=== PATIENT | female | born 1955 | race Two or more races ===

== ENCOUNTER 2022-07-23 13:08 | Inpatient (IN) | payer OTHER ==
[2022-07-23] MEDS ORDERED: SODIUM CHLORIDE 0.9% 1,000 ML IV STA ×2 (13:44)
[2022-07-23] MEDS ORDERED: DILTIAZEM DRIP BOLUS FROM BAG 1 MG SOLN IV ONE (13:45)
--- NOTE | 2022-07-23 13:51 | ED ---
Weakness HPI - General Chief complaint: Weakness Stated complaint: Dizziness,Tachycardia Time Seen by Provider: 07/23/22 13:33 Source: patient, RN notes reviewed Mode of arrival: wheelchair Limitations: no limitations - History of Present Illness Initial comments: 66-year-old female history of chronic A. fib diabetes hypertension chronic wound infections to the right foot who presents with family today because of palpitations feeling clammy and diaphoretic and weak. Patient denies any overt chest pain at this time no shortness of breath at this time no dysuria no cough no other symptoms. She is scheduled for amputation and near future of her right foot due to peripheral vascular disease and chronic wounds. MD Complaint: generalized weakness - Related Data Home Medications Medication Instructions Recorded Confirmed Insulin Detemir [Levemir Flexpen] 15 unit SQ BID 11/14/13 07/23/22 metFORMIN HCL [Glucophage] 1,000 mg PO BID 11/14/13 07/23/22 Acetaminophen Tab [Tylenol Tab] 1,000 mg PO Q6HR PRN 07/23/22 07/23/22 Atorvastatin [Lipitor] 40 mg PO DAILY 07/23/22 07/23/22 Cephalexin [Keflex] 500 mg PO TID 07/23/22 07/23/22 Clopidogrel [Plavix] 75 mg PO DAILY 07/23/22 07/23/22 DULoxetine HCL [Cymbalta] 30 mg PO DAILY 07/23/22 07/23/22 Gabapentin 300 mg PO TID 07/23/22 07/23/22 Losartan/Hydrochlorothiazide 1 tab PO DAILY 07/23/22 07/23/22 [Losartan-Hctz 100-12.5 mg Tab] Metoprolol Succinate [Toprol XL] 50 mg PO DAILY 07/23/22 07/23/22 Warfarin [Coumadin] 2.5 mg PO MO 07/23/22 07/23/22 Warfarin [Coumadin] 5 mg PO SUTUWETHFRSA 07/23/22 07/23/22 dilTIAZem HCL [dilTIAZem HCL 24Hr 120 mg PO DAILY 07/23/22 07/23/22 ER (Xr)] traMADol HCL 25 mg PO BID PRN 07/23/22 07/23/22 Allergies Allergy/AdvReac Type Severity Reaction Status Date / Time No Known Allergies Allergy Verified 07/23/22 14:52 Review of Systems ROS Statement: Those systems with pertinent positive or pertinent negative responses have been documented in the HPI. ROS Other: All systems not noted in ROS Statement are negative. Past Medical History Past Medical History: Atrial Fibrillation, Diabetes Mellitus, Eye Disorder, Hyperlipidemia, Hypertension Additional Past Medical History / Comment(s): CATARACT, chronic foot wounds EF 35%, PAD, History of Any Multi-Drug Resistant Organisms: None Reported Past Surgical History: Back Surgery, Section Past Anesthesia/Blood Transfusion Reactions: No Reported Reaction Past Psychological History: No Psychological Hx Reported Smoking Status: Never smoker Past Alcohol Use History: Occasional Past Drug Use History: None Reported - Past Family History Father Family Medical History: Cancer General Exam - General Exam Comments Initial Comments: This is a well developed well-nourished awake alert oriented 4 female Limitations: no limitations General appearance: alert, in no apparent distress Head exam: Present: atraumatic, normocephalic, normal inspection Eye exam: Present: normal appearance, PERRL, EOMI. Absent: scleral icterus, conjunctival injection, periorbital swelling ENT exam: Present: mucous membranes dry Neck exam: Present: normal inspection, full ROM, other (No stridor JVD or bruits). Absent: tenderness, meningismus, lymphadenopathy Respiratory exam: Present: normal lung sounds bilaterally. Absent: respiratory distress, wheezes, rales, rhonchi, stridor Cardiovascular Exam: Present: tachycardia, irregular rhythm, other (Elevated heart rate A. fib RVR ranging from the 130s to the 160s). Absent: systolic murmur, diastolic murmur, rubs, gallop, clicks GI/Abdominal exam: Present: soft, normal bowel sounds. Absent: distended, tenderness, guarding, rebound, rigid Extremities exam: Present: other (Examination right foot reveals eschar formation to the first fourth and fifth toes with no circulation noted. Consistent with dry gangrene. Localized erythema no increased localized t emperature at this time.). Absent: tenderness, pedal edema, joint swelling, calf tenderness Back exam: Present: normal inspection Neurological exam: Present: alert, oriented X3, CN II-XII intact Psychiatric exam: Present: normal affect, normal mood Skin exam: Present: warm, dry. Absent: intact, normal color, rash Course Vital Signs 07/23/22 07/23/22 07/23/22 13:19 13:35 15:14 Temperature 97.5 F L Pulse Rate 85 145 H 98 Respiratory 16 22 18 Rate Blood Pressure 127/79 130/73 O2 Sat by Pulse 96 95 96 Oximetry - Reevaluation(s) Reevaluation #1: 07/23/22 15:54 Evaluation after the IV Cardizem started reveals improvement rate patient is still in A. fib. Reevaluation #2: 07/23/22 17:18 X-ray of the foot shows no definitive evidence of osteomyelitis or gas formation. Medical Decision Making - Medical Decision Making I did discuss findings with the patient family as well as with Dr. Guerra the patient be admitted for inpatient evaluation and treatment of A. fib RVR gangrene of the right first fourth and fifth toes with localized cellulitis of the lactic acid elevated white blood cell count. Patient's INR is 4.8Was pt. sent in by a medical professional or institution (, PA, TUBE BENDING MACHINE OPERATOR, urgent care, hospital, or long term...) When possible be specific @ -No Did you speak to anyone other than the patient for history (EMS, parent, family, police, friend...)? What history was obtained from this source @ -No Did you review nursing and triage notes (agree or disagree)? Why? @ -I reviewed and agree with nursing and triage notes Were old charts reviewed (outside hosp., previous admission, EMS record, old EKG, old radiological studies, urgent care reports/EKG's, long term records)? Report findings @ -Previous admission old charts were reviewed Differential Diagnosis (chest pain, altered mental status, abdominal pain women, abdominal pain men, vaginal bleeding, weakness, fever, dyspnea, syncope, headache, dizziness, GI bleed, back pain, seizure, CVA, palpatations, mental health, musculoskeletal)? @ -Rapid atrial fibrillation, weakness, dehydration, peripheral vascular disease with right foot infection EKG interpreted by me (3pts min.). @ -As above X-rays interpreted by me (1pt min.). @ -As above CT interpreted by me (1pt min.). @ -None done U/S interpreted by me (1pt. min.). @ -None done What testing was considered but not performed or refused? (CT, X-rays, U/S, labs)? Why? @ -None What meds were considered but not given or refused? Why? @ -None Did you discuss the management of the patient with other professionals (professionals i.e. , PA, TUBE BENDING MACHINE OPERATOR, lab, RT, psych nurse, elementary school social worker, recreation director, teacher, chief procurement officer, behavioral health case manager)? Give summary @ -Dr. Guerra Was smoking cessation discussed for >3mins.? @ -No Was critical care preformed (if so, how long)? @ -39 Were there social determinants of health that impacted care today? How? (Homelessness, low income, unemployed, alcoholism, drug addiction, transportation, low edu. Level, literacy, decrease access to med. care, correction, rehab)? @ -No Was there de-escalation of care discussed even if they declined (Discuss DNR or withdrawal of care, Hospice)? DNR status @ -No What co-morbidities impacted this encounter? (DM, HTN, Smoking, COPD, CAD, Cancer, CVA, ARF, Chemo, Hep., AIDS, mental health diagnosis, sleep apnea, morbid obesity)? @ -Rennick atrial fibrillation, peripheral vascular disease, diabetes, hypertension, hyperlipidemia, smoking Was patient admitted / discharged? Hospital course, mention meds given and route, prescriptions, significant lab abnormalities, going to OR and other pertinent info. @ -hospital course H was admitted for inpatient evaluation and treatment of rapid atrial fibrillation also weakness and the right foot issues including gangrene of the first fourth and fifth toes. Patient did have a mildly elevated lactic acid this is more than likely secondary to the intervascular bind depletion as opposed to the foot IV and about for started. Undiagnosed new problem with uncertain prognosis? @ -No Drug Therapy requiring intensive monitoring for toxicity (Heparin, Nitro, Insulin, Cardizem)? @ -[IV Cardizem Were any procedures done? @ -No Diagnosis/symptom? @ -Acute rapid ventricular response atrial fibrillation, weakness, peripheral vascular disease with gangrene of the right toes, leukocytosis, elevated lactic acid elevated INR Acute, or Chronic, or Acute on Chronic? @ -Acute on chronic Uncomplicated (without systemic symptoms) or Complicated (systemic symptoms)? @ -Obligated Side effects of treatment? @ -No Exacerbation, Progression, or Severe Exacerbation? @ -Progression in exacerbation Poses a threat to life or bodily function? How? (Chest pain, USA, OR, pneumonia, PE, COPD, DKA, ARF, appy, cholecystitis, CVA, Diverticulitis, Homicidal, Suicidal, threat to staff... and all critical care pts) @ -Rapid atrial fibrillation - Lab Data Result diagrams: 07/23/22 13:47 07/23/22 13:47 Lab Results 07/23/22 07/23/22 07/23/22 Range/Units 13:47 13:47 13:47 WBC 14.5 H (3.8-10.6) k/uL RBC 4.50 (3.80-5.40) m/uL Hgb 13.2 (11.4-16.0) gm/dL Hct 40.1 (34.0-46.0) % MCV 89.1 (80.0-100.0) fL MCH 29.3 (25.0-35.0) pg MCHC 32.9 (31.0-37.0) g/dL RDW 13.1 (11.5-15.5) % Plt Count 302 (150-450) k/uL MPV 8.3 Neutrophils % 86 % Lymphocytes % 7 % Monocytes % 5 % Eosinophils % 1 % Basophils % 0 % Neutrophils # 12.5 H (1.3-7.7) k/uL Lymphocytes # 1.0 (1.0-4.8) k/uL Monocytes # 0.7 (0-1.0) k/uL Eosinophils # 0.2 (0-0.7) k/uL Basophils # 0.0 (0-0.2) k/uL PT 46.8 H (9.0-12.0) sec INR 4.8 H (<1.2) APTT 40.0 H (22.0-30.0) sec Sodium 136 L (137-145) mmol/L Potassium 4.7 (3.5-5.1) mmol/L Chloride 99 (98-107) mmol/L Carbon Dioxide 19 L (22-30) mmol/L Anion Gap 18 mmol/L BUN 21 H (7-17) mg/dL Creatinine 0.80 (0.52-1.04) mg/dL Est GFR (CKD-EPI)AfAm 88 (>60 ml/min/1.73 sqM) Est GFR (CKD-EPI)NonAf 76 (>60 ml/min/1.73 sqM) Glucose 192 H (74-99) mg/dL Lactic Ac Sepsis Rflx Plasma Lactic Acid Armani (0.7-2.0) mmol/L Calcium 9.9 (8.4-10.2) mg/dL Magnesium 1.3 L (1.6-2.3) mg/dL Total Bilirubin 0.7 (0.2-1.3) mg/dL AST 20 (14-36) U/L ALT 15 (4-34) U/L Alkaline Phosphatase 65 (38-126) U/L Troponin I (0.000-0.034) ng/mL NT-Pro-B Natriuret Pep pg/mL Total Protein 8.1 (6.3-8.2) g/dL Albumin 4.5 (3.5-5.0) g/dL TSH 0.861 (0.465-4.680) mIU/L 07/23/22 07/23/22 07/23/22 Range/Units 13:47 13:47 13:47 WBC (3.8-10.6) k/uL RBC (3.80-5.40) m/uL Hgb (11.4-16.0) gm/dL Hct (34.0-46.0) % MCV (80.0-100.0) fL MCH (25.0-35.0) pg MCHC (31.0-37.0) g/dL RDW (11.5-15.5) % Plt Count (150-450) k/uL MPV Neutrophils % % Lymphocytes % % Monocytes % % Eosinophils % % Basophils % % Neutrophils # (1.3-7.7) k/uL Lymphocytes # (1.0-4.8) k/uL Monocytes # (0-1.0) k/uL Eosinophils # (0-0.7) k/uL Basophils # (0-0.2) k/uL PT (9.0-12.0) sec INR (<1.2) APTT (22.0-30.0) sec Sodium (137-145) mmol/L Potassium (3.5-5.1) mmol/L Chloride (98-107) mmol/L Carbon Dioxide (22-30) mmol/L Anion Gap mmol/L BUN (7-17) mg/dL Creatinine (0.52-1.04) mg/dL Est GFR (CKD-EPI)AfAm (>60 ml/min/1.73 sqM) Est GFR (CKD-EPI)NonAf (>60 ml/min/1.73 sqM) Glucose (74-99) mg/dL Lactic Ac Sepsis Rflx Plasma Lactic Acid Armani 2.2 H* (0.7-2.0) mmol/L Calcium (8.4-10.2) mg/dL Magnesium (1.6-2.3) mg/dL Total Bilirubin (0.2-1.3) mg/dL AST (14-36) U/L ALT (4-34) U/L Alkaline Phosphatase (38-126) U/L Troponin I <0.012 (0.000-0.034) ng/mL NT-Pro-B Natriuret Pep 1530 pg/mL Total Protein (6.3-8.2) g/dL Albumin (3.5-5.0) g/dL TSH (0.465-4.680) mIU/L 07/23/22 Range/Units 14:32 WBC (3.8-10.6) k/uL RBC (3.80-5.40) m/uL Hgb (11.4-16.0) gm/dL Hct (34.0-46.0) % MCV (80.0-100.0) fL MCH (25.0-35.0) pg MCHC (31.0-37.0) g/dL RDW (11.5-15.5) % Plt Count (150-450) k/uL MPV Neutrophils % % Lymphocytes % % Monocytes % % Eosinophils % % Basophils % % Neutrophils # (1.3-7.7) k/uL Lymphocytes # (1.0-4.8) k/uL Monocytes # (0-1.0) k/uL Eosinophils # (0-0.7) k/uL Basophils # (0-0.2) k/uL PT (9.0-12.0) sec INR (<1.2) APTT (22.0-30.0) sec Sodium (137-145) mmol/L Potassium (3.5-5.1) mmol/L Chloride (98-107) mmol/L Carbon Dioxide (22-30) mmol/L Anion Gap mmol/L BUN (7-17) mg/dL Creatinine (0.52-1.04) mg/dL Est GFR (CKD-EPI)AfAm (>60 ml/min/1.73 sqM) Est GFR (CKD-EPI)NonAf (>60 ml/min/1.73 sqM) Glucose (74-99) mg/dL Lactic Ac Sepsis Rflx Y Plasma Lactic Acid Armani (0.7-2.0) mmol/L Calcium (8.4-10.2) mg/dL Magnesium (1.6-2.3) mg/dL Total Bilirubin (0.2-1.3) mg/dL AST (14-36) U/L ALT (4-34) U/L Alkaline Phosphatase (38-126) U/L Troponin I (0.000-0.034) ng/mL NT-Pro-B Natriuret Pep pg/mL Total Protein (6.3-8.2) g/dL Albumin (3.5-5.0) g/dL TSH (0.465-4.680) mIU/L - Radiology Data Interpreted by me: Chest x-ray interpreted by me no acute findings seen. Critical Care Time Critical Care Time: Yes Total Critical Care Time: 39 Disposition Clinical Impression: Rapid atrial fibrillation, Weakness, Diabetic infection of right foot, Peripheral vascular disease, Gangrene of toe of right foot, Foot pain, right Disposition: ADMITTED IP TO THIS HOSP Condition: Fair Referrals: Sumi Brewer MD [Primary Care Provider] - 1-2 days Decision Date: 07/23/22 Decision Time: 16:30
[2022-07-23 14:09] LABS: Basophils % (A) 0 %; Eosinophils # (A) 0.2 k/uL (0-0.7); Eosinophils % (A) 1 %; HCT 40.1 % (34.0-46.0); HGB 13.2 gm/dL (11.4-16.0); Lymphocytes % (A) 7 %; MCH 29.3 pg (25.0-35.0); MCHC 32.9 g/dL (31.0-37.0); MCV 89.1 fL (80.0-100.0); Mean Platelet Volume 8.3; Monocytes # (A) 0.7 k/uL (0-1.0); Monocytes % (A) 5 %; Neutrophils # (A) 12.5 k/uL (1.3-7.7); Neutrophils % (A) 86 %; Platelet Count 302 k/uL (150-450); RDW 13.1 % (11.5-15.5); WBC 14.5 k/uL (3.8-10.6)
[2022-07-23 14:18] LABS: INR 4.8 (<1.2); Prothrombin Time 46.8 sec (9.0-12.0)
[2022-07-23] MEDS: DILTIAZEM 125 MG in SODIUM CHLORIDE 0.9% 100 ML IV SCH (14:26)
[2022-07-23] MEDS ORDERED: HYDROmorphone 1 MG/ML 1 ML SYRINGE IVP STA ×2 (14:33→16:07)
[2022-07-23 14:35] LABS: Albumin 4.5 g/dL (3.5-5.0); Calcium 9.9 mg/dL (8.4-10.2); Magnesium 1.3 mg/dL (1.6-2.3); Potassium 4.7 mmol/L (3.5-5.1); Total Bilirubin 0.7 mg/dL (0.2-1.3); Total Protein 8.1 g/dL (6.3-8.2)
[2022-07-23] MEDS: MAGNESIUM SULFATE-D5W PMX 1 GM in DEXTROSE/WATER 1 100ML.BAG IVPB SCH ×2 (14:49→16:01)
--- NOTE | 2022-07-23 15:31 | XR ---
EXAMINATION TYPE: XR chest 2V DATE OF EXAM: 07/23/2022 COMPARISON: NONE HISTORY: Shortness of breath TECHNIQUE: Frontal and lateral views of the chest are obtained. FINDINGS: Scattered senescent parenchymal changes noted. Hyperinflation compatible with COPD. No evidence for infiltrate. No evidence for atelectasis. Heart size is stable. Mediastinal structures are stable and grossly unremarkable. No evidence for hilar prominence. Degenerative changes dorsal spine. IMPRESSION: 1. No evidence for acute pulmonary disease.
[2022-07-23] MEDS ORDERED: PIPERACILLIN-TAZOBACTAM 3.375 GM in SODIUM CHLORIDE 0.9% 100 ML IVPB STA (15:50)
--- NOTE | 2022-07-23 16:22 | XR ---
EXAMINATION TYPE: XR foot limited RT DATE OF EXAM: 07/23/2022 CLINICAL HISTORY: Gangrene right foot TECHNIQUE: Frontal, lateral images of the right foot are obtained. COMPARISON: None. FINDINGS: Soft tissue swelling noted greatest at the plantar aspect of the distal right foot. There a re extensive vascular calcifications noted. I do not see evidence for soft tissue air. No bony destru ctive process is apparent at this time. No fracture or dislocation. IMPRESSION: There is no acute fracture or dislocation. ICD 10 NO FRACTURE, INITIAL EVALUATION
[2022-07-23] MEDS ORDERED: ONDANSETRON 4 MG/2 ML VIAL IVP PRN (17:20)
[2022-07-23] MEDS ORDERED: NALOXONE 0.4 MG/ML 1 ML VIAL IV PRN (17:20)
[2022-07-23] MEDS ORDERED: ACETAMINOPHEN TAB 500 MG TAB PO PRN (17:22)
--- NOTE | 2022-07-23 17:24 | ED ---
Medical Decision Making - Lab Data Result diagrams: 07/23/22 13:47 07/23/22 13:47 Lab Results 07/23/22 07/23/22 07/23/22 Range/Units 13:47 13:47 13:47 WBC 14.5 H (3.8-10.6) k/uL RBC 4.50 (3.80-5.40) m/uL Hgb 13.2 (11.4-16.0) gm/dL Hct 40.1 (34.0-46.0) % MCV 89.1 (80.0-100.0) fL MCH 29.3 (25.0-35.0) pg MCHC 32.9 (31.0-37.0) g/dL RDW 13.1 (11.5-15.5) % Plt Count 302 (150-450) k/uL MPV 8.3 Neutrophils % 86 % Lymphocytes % 7 % Monocytes % 5 % Eosinophils % 1 % Basophils % 0 % Neutrophils # 12.5 H (1.3-7.7) k/uL Lymphocytes # 1.0 (1.0-4.8) k/uL Monocytes # 0.7 (0-1.0) k/uL Eosinophils # 0.2 (0-0.7) k/uL Basophils # 0.0 (0-0.2) k/uL PT 46.8 H (9.0-12.0) sec INR 4.8 H (<1.2) APTT 40.0 H (22.0-30.0) sec Sodium 136 L (137-145) mmol/L Potassium 4.7 (3.5-5.1) mmol/L Chloride 99 (98-107) mmol/L Carbon Dioxide 19 L (22-30) mmol/L Anion Gap 18 mmol/L BUN 21 H (7-17) mg/dL Creatinine 0.80 (0.52-1.04) mg/dL Est GFR (CKD-EPI)AfAm 88 (>60 ml/min/1.73 sqM) Est GFR (CKD-EPI)NonAf 76 (>60 ml/min/1.73 sqM) Glucose 192 H (74-99) mg/dL Lactic Ac Sepsis Rflx Plasma Lactic Acid Armani (0.7-2.0) mmol/L Calcium 9.9 (8.4-10.2) mg/dL Magnesium 1.3 L (1.6-2.3) mg/dL Total Bilirubin 0.7 (0.2-1.3) mg/dL AST 20 (14-36) U/L ALT 15 (4-34) U/L Alkaline Phosphatase 65 (38-126) U/L Troponin I (0.000-0.034) ng/mL NT-Pro-B Natriuret Pep pg/mL Total Protein 8.1 (6.3-8.2) g/dL Albumin 4.5 (3.5-5.0) g/dL TSH 0.861 (0.465-4.680) mIU/L 07/23/22 07/23/22 07/23/22 Range/Units 13:47 13:47 13:47 WBC (3.8-10.6) k/uL RBC (3.80-5.40) m/uL Hgb (11.4-16.0) gm/dL Hct (34.0-46.0) % MCV (80.0-100.0) fL MCH (25.0-35.0) pg MCHC (31.0-37.0) g/dL RDW (11.5-15.5) % Plt Count (150-450) k/uL MPV Neutrophils % % Lymphocytes % % Monocytes % % Eosinophils % % Basophils % % Neutrophils # (1.3-7.7) k/uL Lymphocytes # (1.0-4.8) k/uL Monocytes # (0-1.0) k/uL Eosinophils # (0-0.7) k/uL Basophils # (0-0.2) k/uL PT (9.0-12.0) sec INR (<1.2) APTT (22.0-30.0) sec Sodium (137-145) mmol/L Potassium (3.5-5.1) mmol/L Chloride (98-107) mmol/L Carbon Dioxide (22-30) mmol/L Anion Gap mmol/L BUN (7-17) mg/dL Creatinine (0.52-1.04) mg/dL Est GFR (CKD-EPI)AfAm (>60 ml/min/1.73 sqM) Est GFR (CKD-EPI)NonAf (>60 ml/min/1.73 sqM) Glucose (74-99) mg/dL Lactic Ac Sepsis Rflx Plasma Lactic Acid Armani 2.2 H* (0.7-2.0) mmol/L Calcium (8.4-10.2) mg/dL Magnesium (1.6-2.3) mg/dL Total Bilirubin (0.2-1.3) mg/dL AST (14-36) U/L ALT (4-34) U/L Alkaline Phosphatase (38-126) U/L Troponin I <0.012 (0.000-0.034) ng/mL NT-Pro-B Natriuret Pep 1530 pg/mL Total Protein (6.3-8.2) g/dL Albumin (3.5-5.0) g/dL TSH (0.465-4.680) mIU/L 07/23/22 Range/Units 14:32 WBC (3.8-10.6) k/uL RBC (3.80-5.40) m/uL Hgb (11.4-16.0) gm/dL Hct (34.0-46.0) % MCV (80.0-100.0) fL MCH (25.0-35.0) pg MCHC (31.0-37.0) g/dL RDW (11.5-15.5) % Plt Count (150-450) k/uL MPV Neutrophils % % Lymphocytes % % Monocytes % % Eosinophils % % Basophils % % Neutrophils # (1.3-7.7) k/uL Lymphocytes # (1.0-4.8) k/uL Monocytes # (0-1.0) k/uL Eosinophils # (0-0.7) k/uL Basophils # (0-0.2) k/uL PT (9.0-12.0) sec INR (<1.2) APTT (22.0-30.0) sec Sodium (137-145) mmol/L Potassium (3.5-5.1) mmol/L Chloride (98-107) mmol/L Carbon Dioxide (22-30) mmol/L Anion Gap mmol/L BUN (7-17) mg/dL Creatinine (0.52-1.04) mg/dL Est GFR (CKD-EPI)AfAm (>60 ml/min/1.73 sqM) Est GFR (CKD-EPI)NonAf (>60 ml/min/1.73 sqM) Glucose (74-99) mg/dL Lactic Ac Sepsis Rflx Y Plasma Lactic Acid Armani (0.7-2.0) mmol/L Calcium (8.4-10.2) mg/dL Magnesium (1.6-2.3) mg/dL Total Bilirubin (0.2-1.3) mg/dL AST (14-36) U/L ALT (4-34) U/L Alkaline Phosphatase (38-126) U/L Troponin I (0.000-0.034) ng/mL NT-Pro-B Natriuret Pep pg/mL Total Protein (6.3-8.2) g/dL Albumin (3.5-5.0) g/dL TSH (0.465-4.680) mIU/L Disposition Clinical Impression: Rapid atrial fibrillation, Weakness, Diabetic infection of right foot, Peripheral vascular disease, Gangrene of toe of right foot, Foot pain, right, Coumadin toxicity Disposition: ADMITTED IP TO THIS HOSP Condition: Fair Referrals: Sumi Brewer MD [Primary Care Provider] - 1-2 days
[2022-07-23] MEDS: SODIUM CHLORIDE 0.9% 1,000 ML IV SCH (19:26)
[2022-07-23] MEDS: GABAPENTIN 300 MG CAP PO SCH (20:53)
[2022-07-23] MEDS: metFORMIN 500 MG TAB PO SCH (20:53)
[2022-07-23] MEDS: INSULIN DETEMIR (LEVEMIR) 100 UNIT/ML SYR SQ SCH (20:53)
[2022-07-23 20:56] LABS: Glucose,Whole Blood 208 mg/dL (70-110)
[2022-07-23] MEDS: traMADol 50 MG TAB PO PRN (21:11)
[2022-07-23] MEDS ORDERED: DEXTROSE 50% SYRINGE 50 ML IVP PRN ×2 (21:52)
[2022-07-24 06:18] LABS: Glucose,Whole Blood 176 mg/dL (70-110)
[2022-07-24 07:53] LABS: Basophils % (A) 0 %; Eosinophils # (A) 0.1 k/uL (0-0.7); Eosinophils % (A) 1 %; HCT 35.2 % (34.0-46.0); HGB 11.7 gm/dL (11.4-16.0); Lymphocytes # (A) 1.3 k/uL (1.0-4.8); Lymphocytes % (A) 11 %; MCH 30.2 pg (25.0-35.0); MCHC 33.1 g/dL (31.0-37.0); Monocytes # (A) 0.8 k/uL (0-1.0); Monocytes % (A) 7 %; Neutrophils # (A) 9.2 k/uL (1.3-7.7); Neutrophils % (A) 79 %; Platelet Count 274 k/uL (150-450); RBC 3.87 m/uL (3.80-5.40); RDW 13.1 % (11.5-15.5); WBC 11.7 k/uL (3.8-10.6)
[2022-07-24 08:58] LABS: African American GFR (CKD) >90 (>60 ml/min/1.73 sqM); Anion Gap 12 mmol/L; Blood Urea Nitrogen 15 mg/dL (7-17); Calcium 8.9 mg/dL (8.4-10.2); Carbon Dioxide 23 mmol/L (22-30); Chloride 103 mmol/L (98-107); Glucose 177 mg/dL (74-99); Non-African American GFR(CKD) >90 (>60 ml/min/1.73 sqM); Potassium 4.1 mmol/L (3.5-5.1); Sodium 138 mmol/L (137-145)
[2022-07-24] MEDS ORDERED: METOPROLOL SUCCINATE (ER) 50 MG TAB.ER.24H PO SCH (09:00)
[2022-07-24] MEDS ORDERED: NON FORMULARY DRUG (Losartan/Hydrochlorothiazide [Losartan-Hctz 100-12.5 Mg Tab] 1 EACH Ta PO SCH (09:00)
--- NOTE | 2022-07-24 09:30 | P.HPIM ---
History of Present Illness H&P Date: 07/23/22 Chief Complaint: Generalized weakness. Patient is a 66-year-old female with a known history of chronic atrial fibrillation on anticoagulation with warfarin, chronic CHF with ejection fraction 35% as per recent echocardiogram at outside hospital facility, hypertension, hyperlipidemia, peripheral vascular disease with recent angioplasty x3 during last 3 months presents to ER with the complaints of generalized weakness and felt like heart exploding. Patient became cold clammy and diaphoretic. Patient's daughter noticed that it is unusual for her and was brought to the ER for evaluation. Patient follows with cardiology and vascular surgery at different hospital facility until recently she was seen by vascular surgery in the clinic on due to right great toe gangrenous changes. Patient was given prescription for Keflex which she has been taking. Patient w ould like to follow-up with [facility] which is close to her place. Otherwise patient denies any fever or chills. No leg swelling. No nausea vomiting or abdominal pain or diarrhea. Chest x-ray showed no acute pulmonary disease. X-ray of the foot showed no acute fracture or dislocation. Soft tissue swelling noted greatest at the plantar aspect of the distal right foot. Laboratory data showed WBC 14.5 hemoglobin 13.2 and platelets 302 neutrophils 12.5 INR 4.8 Sodium 136 potassium 4.7 chloride 99 bicarb is 19 BUN 21 creatinine 0.8 and lactic acid 2.2 and magnesium 1.3 proBNP 1530, troponin x1 negative, albumin 4.5, TSH level is 0.861 EKG showed atrial fibrillation with rapid response with heart rate in 130s. Review of Systems Constitutional: Patient denies any fever or chills . Generalized weakness. Abdomen: Patient denied any nausea or vomiting or abd. pain Cardiovascular: Patient denies any chest pain or short of breath +palpitations. Respiratory: patient denied any cough . no sputum production. No shortness of breath Neurologic: Patient denied any numbness or tingling headache. Musculoskeletal: Patient denies any complaints of joint swelling or deformity. Skin: Negative Psychiatric: Negative Endocrine: No heat or cold intolerance. No recent weight gain. Genitourinary: No dysuria or hematuria. All other 14 point ROS negative except the above Past Medical History Past Medical History: Atrial Fibrillation, Diabetes Mellitus, Eye Disorder, Hyperlipidemia, Hypertension Additional Past Medical History / Comment(s): CATARACT, chronic foot wounds EF 35%, PAD, History of Any Multi-Drug Resistant Organisms: None Reported Past Surgical History: Back Surgery, Section Past Anesthesia/Blood Transfusion Reactions: No Reported Reaction Past Psychological History: No Psychological Hx Reported Smoking Status: Never smoker Past Alcohol Use History: Occasional Past Drug Use History: None Reported - Past Family History Father Family Medical History: Cancer Medications and Allergies Home Medications Medication Instructions Recorded Confirmed Type Insulin Detemir [Levemir Flexpen] 15 unit SQ BID 11/14/13 07/23/22 History metFORMIN HCL [Glucophage] 1,000 mg PO BID 11/14/13 07/23/22 History Acetaminophen Tab [Tylenol Tab] 1,000 mg PO Q6HR PRN 07/23/22 07/23/22 History Atorvastatin [Lipitor] 40 mg PO DAILY 07/23/22 07/23/22 History Cephalexin [Keflex] 500 mg PO TID 07/23/22 07/23/22 History Clopidogrel [Plavix] 75 mg PO DAILY 07/23/22 07/23/22 History DULoxetine HCL [Cymbalta] 30 mg PO DAILY 07/23/22 07/23/22 History Gabapentin 300 mg PO TID 07/23/22 07/23/22 History Losartan/Hydrochlorothiazide 1 tab PO DAILY 07/23/22 07/23/22 History [Losartan-Hctz 100-12.5 mg Tab] Metoprolol Succinate [Toprol XL] 50 mg PO DAILY 07/23/22 07/23/22 History Warfarin [Coumadin] 2.5 mg PO MO 07/23/22 07/23/22 History Warfarin [Coumadin] 5 mg PO SUTUWETHFRSA 07/23/22 07/23/22 History dilTIAZem HCL [dilTIAZem HCL 24Hr 120 mg PO DAILY 07/23/22 07/23/22 History ER (Xr)] traMADol HCL 25 mg PO BID PRN 07/23/22 07/23/22 History Allergies Allergy/AdvReac Type Severity Reaction Status Date / Time No Known Allergies Allergy Verified 07/23/22 14:52 Physical Exam Vitals: Vital Signs Temp Pulse Resp BP Pulse Ox 07/23/22 20:45 104 H 18 109/65 97 07/23/22 19:35 107 H 18 124/99 98 07/23/22 18:18 89 18 100/66 07/23/22 15:14 98 18 130/73 96 07/23/22 13:35 145 H 22 95 07/23/22 13:19 97.5 F L 85 16 127/79 96 Intake and Output 07/23/22 07/23/22 07/23/22 06:59 14:59 22:59 Intake Total 237 Balance 237 Intake: Oral 237 Other: Weight 88.451 kg 88.451 kg PHYSICAL EXAMINATION: Patient is lying in the bed comfortably, no acute distress, awake alert and oriented.. HEENT: Normocephalic. Neck is supple. Pupils reactive. Nostrils clear. Oral cavity is moist. Neck reveals no JVD, carotid bruits, or thyromegaly. CHEST EXAMINATION: Trachea is central. Symmetrical expansion. Lung torres clear to auscultation and percussion. CARDIAC: Normal S1, S2 with no gallops. Irregularly irregular rhythm. ABDOMEN: Soft. Bowel sounds present. Nontender. No organomegaly. No abdominal bruits. Extremities: reveal no edema. No clubbing or cyanosis Right great toe, fourth and fifth toe gangrenous changes with surrounding redness. Neurologically awake, alert, oriented x3 with well-coordinated movements. No focal deficits noted Skin: No rash or skin lesions. Psychiatric: Coperative. Nonsuicidal, Musculoskeletal: No joint swelling or deformity. Normal range of motion. Results CBC & Chem 7: 07/24/22 07:40 07/24/22 07:40 Labs: Abnormal Lab Results - Last 24 Hours (Table) 07/23/22 07/23/22 07/23/22 Range/Units 13:47 13:47 13:47 WBC 14.5 H (3.8-10.6) k/uL Neutrophils # 12.5 H (1.3-7.7) k/uL PT 46.8 H (9.0-12.0) sec INR 4.8 H (<1.2) APTT 40.0 H (22.0-30.0) sec Sodium 136 L (137-145) mmol/L Carbon Dioxide 19 L (22-30) mmol/L BUN 21 H (7-17) mg/dL Glucose 192 H (74-99) mg/dL POC Glucose (mg/dL) (70-110) mg/dL Plasma Lactic Acid Armani (0.7-2.0) mmol/L Magnesium 1.3 L (1.6-2.3) mg/dL 07/23/22 07/23/22 Range/Units 13:47 20:54 WBC (3.8-10.6) k/uL Neutrophils # (1.3-7.7) k/uL PT (9.0-12.0) sec INR (<1.2) APTT (22.0-30.0) sec Sodium (137-145) mmol/L Carbon Dioxide (22-30) mmol/L BUN (7-17) mg/dL Glucose (74-99) mg/dL POC Glucose (mg/dL) 208 H (70-110) mg/dL Plasma Lactic Acid Armani 2.2 H* (0.7-2.0) mmol/L Magnesium (1.6-2.3) mg/dL Thrombosis Risk Factor Assmnt - DVT/VTE Prophylaxis DVT/VTE Prophylaxis: Pharmacologic Prophylaxis ordered - Choose All That Apply Any of the Below Risk Factors Present?: Yes Each Factor Represents 1 point: Obesity (BMI >25) Each Risk Factor Represents 2 Points: Age 61-74 years Thrombosis Risk Factor Assessment Total Risk Factor Score: 3 Thrombosis Risk Factor Assessment Level: Moderate Risk Assessment and Plan Assessment: Atrial fibrillation with rapid ventricle response. Chronic atrial fibrillation on anticoagulation with warfarin Generalized weakness and cold clamminess and palpitations secondary to above Right great toe and fourth and fifth toe dry gangrenous changes with possible surrounding cellulitis.. Peripheral vascular disease with recent history of right lower extremity angioplasty x3 Chronic CHF with systolic dysfunction ejection fraction 35%. No history of stent placement Hypertension Hyperlipidemia Diabetes type 2 insulin-dependent Coumadin dosing and monitoring. Coumadin coagulopathy Plan: Patient was given IV fluid bolus in the ER. Continue with Cardizem drip. Warfarin is on hold due to supratherapeutic INR. Restarted metoprolol and Cardizem CD. Cardiology was consulted. Will be continued on IV antibiotics and vascular surgery consult due to gangrenous changes of the right great toe. Continue with Plavix, statins and other home medications. Continue with insulin regimen and titrate dose as needed. Follow-up closely. Discussed with her daughter and the patient at bedside in detail. Prognosis is guarded at this time. Time with Patient: Greater than 30
[2022-07-24] MEDS: DULoxetine HCL 30 MG CAPSULE.DR PO SCH (10:16)
[2022-07-24] MEDS: LOSARTAN 50 MG TAB PO SCH (10:16)
[2022-07-24] MEDS: DILTIAZEM CD 120 MG CAP.ER.24H PO SCH (10:16)
[2022-07-24] MEDS: GABAPENTIN 300 MG CAP PO SCH ×3 (10:16→20:10)
[2022-07-24] MEDS: ATORVASTATIN 40 MG TAB PO SCH (10:16)
[2022-07-24] MEDS: HYDROmorphone 0.5 MG/0.5 ML SYRINGE IVP PRN ×3 (10:17→23:11)
[2022-07-24] MEDS: CLOPIDOGREL 75 MG TAB PO SCH (10:17)
[2022-07-24] MEDS: metFORMIN 500 MG TAB PO SCH ×2 (10:17→20:10)
[2022-07-24] MEDS: hydroCHLOROthiazide 12.5 MG CAP PO SCH (10:17)
--- NOTE | 2022-07-24 10:32 | P.GSCN ---
History of Present Illness Consult date: 07/24/22 Reason for Consult: Peripheral arterial disease, diabetic wound Requesting physician: Renny Calero History of present illness: This is a pleasant 58-year-old female with a past medical history including atrial fibrillation, peripheral arterial disease, diabetes mellitus, chronic right foot wound and hypertension who presented to the emergency department yesterday afternoon with complaints of palpitations, feeling clammy and diaphoretic as well as week. Patient was admitted with rapid atrial fibrillation, cardiology consulted. Patient also has complaints of right foot pain. Patient has had multiple procedures with Dr. Gould on the right lower extremity, she recently established with Dr. Reina who is working her up for possible amputation of the right foot versus low the knee amputation. Patient states she's had wounds to the toes since January, started out with her big toe and spread. She has no drainage. She denies any fevers or chills. She currently has no shortness of breath, chest pain, abdominal pain, nausea or vomiting. She does follow with the wound care clinic with Dr. Santillan. X-ray of foot showed no acute findings. Patient has cardiologists in the [place] area, was wanting to establish within the [place] area. Review of Systems A 14 point review systems was completed all pertinent positives and negatives as stated in the HPI. Past Medical History Past Medical History: Atrial Fibrillation, Diabetes Mellitus, Eye Disorder, Hyperlipidemia, Hypertension Additional Past Medical History / Comment(s): CATARACT, chronic foot wounds EF 35%, PAD, History of Any Multi-Drug Resistant Organisms: None Reported Past Surgical History: Back Surgery, Section Past Anesthesia/Blood Transfusion Reactions: No Reported Reaction Past Psychological History: No Psychological Hx Reported Smoking Status: Never smoker Past Alcohol Use History: Occasional Past Drug Use History: None Reported - Past Family History Father Family Medical History: Cancer Medications and Allergies Home Medications Medication Instructions Recorded Confirmed Type Insulin Detemir [Levemir Flexpen] 15 unit SQ BID 11/14/13 07/23/22 History metFORMIN HCL [Glucophage] 1,000 mg PO BID 11/14/13 07/23/22 History Acetaminophen Tab [Tylenol Tab] 1,000 mg PO Q6HR PRN 07/23/22 07/23/22 History Atorvastatin [Lipitor] 40 mg PO DAILY 07/23/22 07/23/22 History Cephalexin [Keflex] 500 mg PO TID 07/23/22 07/23/22 History Clopidogrel [Plavix] 75 mg PO DAILY 07/23/22 07/23/22 History DULoxetine HCL [Cymbalta] 30 mg PO DAILY 07/23/22 07/23/22 History Gabapentin 300 mg PO TID 07/23/22 07/23/22 History Losartan/Hydrochlorothiazide 1 tab PO DAILY 07/23/22 07/23/22 History [Losartan-Hctz 100-12.5 mg Tab] Metoprolol Succinate [Toprol XL] 50 mg PO DAILY 07/23/22 07/23/22 History Warfarin [Coumadin] 2.5 mg PO MO 07/23/22 07/23/22 History Warfarin [Coumadin] 5 mg PO SUTUWETHFRSA 07/23/22 07/23/22 History dilTIAZem HCL [dilTIAZem HCL 24Hr 120 mg PO DAILY 07/23/22 07/23/22 History ER (Xr)] traMADol HCL 25 mg PO BID PRN 07/23/22 07/23/22 History Allergies Allergy/AdvReac Type Severity Reaction Status Date / Time No Known Allergies Allergy Verified 07/23/22 14:52 Surgical - Exam Vital Signs Temp Pulse Resp BP Pulse Ox 97.5 F L 85 16 127/79 96 07/23/22 13:19 07/23/22 13:19 07/23/22 13:19 07/23/22 13:19 07/23/22 13:19 General appearance: The patient is alert, oriented, appears in no acute distress. HET: Head is normocephalic and atraumatic. Pupils are equal and reactive. Neck: Supple without lymphadenopathy. Trachea midline. Heart: Regularly irregular. Rapid rate. Lungs: Equal expansion, normal respiratory effort. Abdomen: Soft, nontender, nondistended. Extremities: Right lower extremity right foot dorsal aspect petechiae appearing with dry gangrene of first fourth and fifth toes. Swelling of the second and third toes. Patient sensorimotor intact able to wiggle her toes. Good capillary refill. Bilateral PT and DP Doppler signals present. Neurological: No focal deficits. Strength and sensation are grossly intact. Results - Labs 07/24/22 07:40 07/24/22 07:40 Abnormal Lab Results - Last 24 Hours (Table) 0407/23/22 07/23/22 Range/Units 13:47 13:47 13:47 WBC 14.5 H (3.8-10.6) k/uL Neutrophils # 12.5 H (1.3-7.7) k/uL PT 46.8 H (9.0-12.0) sec INR 4.8 H (<1.2) APTT 40.0 H (22.0-30.0) sec Sodium 136 L (137-145) mmol/L Carbon Dioxide 19 L (22-30) mmol/L BUN 21 H (7-17) mg/dL Glucose 192 H (74-99) mg/dL POC Glucose (mg/dL) (70-110) mg/dL Plasma Lactic Acid Armani (0.7-2.0) mmol/L Magnesium 1.3 L (1.6-2.3) mg/dL 07/23/22 07/23/22 07/24/22 Range/Units 13:47 20:54 06:17 WBC (3.8-10.6) k/uL Neutrophils # (1.3-7.7) k/uL PT (9.0-12.0) sec INR (<1.2) APTT (22.0-30.0) sec Sodium (137-145) mmol/L Carbon Dioxide (22-30) mmol/L BUN (7-17) mg/dL Glucose (74-99) mg/dL POC Glucose (mg/dL) 208 H 176 H (70-110) mg/dL Plasma Lactic Acid Armani 2.2 H* (0.7-2.0) mmol/L Magnesium (1.6-2.3) mg/dL 07/24/22 07/24/22 Range/Units 07:40 07:40 WBC 11.7 H (3.8-10.6) k/uL Neutrophils # 9.2 H (1.3-7.7) k/uL PT (9.0-12.0) sec INR (<1.2) APTT (22.0-30.0) sec Sodium (137-145) mmol/L Carbon Dioxide (22-30) mmol/L BUN (7-17) mg/dL Glucose 177 H (74-99) mg/dL POC Glucose (mg/dL) (70-110) mg/dL Plasma Lactic Acid Armani (0.7-2.0) mmol/L Magnesium (1.6-2.3) mg/dL Diabetes panel 07/23/22 07/24/22 Range/Units 13:47 07:40 Sodium 136 L 138 (137-145) mmol/L Potassium 4.7 4.1 (3.5-5.1) mmol/L Chloride 99 103 (98-107) mmol/L Carbon Dioxide 19 L 23 (22-30) mmol/L BUN 21 H 15 (7-17) mg/dL Creatinine 0.80 0.66 (0.52-1.04) mg/dL Glucose 192 H 177 H (74-99) mg/dL Calcium 9.9 8.9 (8.4-10.2) mg/dL AST 20 (14-36) U/L ALT 15 (4-34) U/L Alkaline Phosphatase 65 (38-126) U/L Total Protein 8.1 (6.3-8.2) g/dL Albumin 4.5 (3.5-5.0) g/dL Thyroid panel 07/23/22 Range/Units 13:47 TSH 0.861 (0.465-4.680) mIU/L Calcium panel 07/23/22 07/24/22 Range/Units 13:47 07:40 Calcium 9.9 8.9 (8.4-10.2) mg/dL Albumin 4.5 (3.5-5.0) g/dL Pituitary panel 07/23/22 07/24/22 Range/Units 13:47 07:40 Sodium 136 L 138 (137-145) mmol/L Potassium 4.7 4.1 (3.5-5.1) mmol/L Chloride 99 103 (98-107) mmol/L Carbon Dioxide 19 L 23 (22-30) mmol/L BUN 21 H 15 (7-17) mg/dL Creatinine 0.80 0.66 (0.52-1.04) mg/dL Glucose 192 H 177 H (74-99) mg/dL Calcium 9.9 8.9 (8.4-10.2) mg/dL TSH 0.861 (0.465-4.680) mIU/L Adrenal panel 07/23/22 07/24/22 Range/Units 13:47 07:40 Sodium 136 L 138 (137-145) mmol/L Potassium 4.7 4.1 (3.5-5.1) mmol/L Chloride 99 103 (98-107) mmol/L Carbon Dioxide 19 L 23 (22-30) mmol/L BUN 21 H 15 (7-17) mg/dL Creatinine 0.80 0.66 (0.52-1.04) mg/dL Glucose 192 H 177 H (74-99) mg/dL Calcium 9.9 8.9 (8.4-10.2) mg/dL Total Bilirubin 0.7 (0.2-1.3) mg/dL AST 20 (14-36) U/L ALT 15 (4-34) U/L Alkaline Phosphatase 65 (38-126) U/L Total Protein 8.1 (6.3-8.2) g/dL Albumin 4.5 (3.5-5.0) g/dL Assessment and Plan Assessment: 1. Dry Gangrene toes right foot 2. Peripheral arterial disease currently on Plavix 3. Rapid atrial fibrillation 4. Supratherapeutic INR 5. Previous revascularization of right lower extremity 6. Diabetes mellitus 7. History atrial fibrillation on coumadin 8. History hypertension Plan: 1. Local wound care per recommendations from wound care clinic 2. Cardiology on consult, appreciate cardiac clearance for possible right lower extremity TMA versus below the knee amputation 3. Continue medical management 4. Further recommendations forthcoming per vascular surgeon Thank you for this consultation, we will continue to follow. The impression and plan of care has been dictated as directed. I performed a history and examination of this patient, discussed the same with the dictator. I agree with the dictator's note ,documented as a scribe. Any additional findings or plans will be noted.
[2022-07-24 11:34] LABS: Glucose,Whole Blood 188 mg/dL (70-110)
[2022-07-24] MEDS ORDERED: METOPROLOL SUCCINATE (ER) 50 MG TAB.ER.24H PO STA (12:01)
[2022-07-24] MEDS ORDERED: MELATONIN 3 MG TABLET PO PRN (12:02)
[2022-07-24] MEDS: INSULIN DETEMIR (LEVEMIR) 100 UNIT/ML SYR SQ SCH ×2 (12:44→20:10)
[2022-07-24] MEDS: INSULIN ASPART (NovoLOG) 100 UNIT/ML VIAL SQ SCH ×4 (12:45→20:10)
[2022-07-24] MEDS: MAGNESIUM SULFATE-D5W PMX 1 GM in DEXTROSE/WATER 1 100ML.BAG IVPB SCH ×3 (12:47→18:06)
[2022-07-24] MEDS: traMADol 50 MG TAB PO PRN (12:54)
[2022-07-24] MEDS: DILTIAZEM 125 MG in SODIUM CHLORIDE 0.9% 100 ML IV SCH (16:17)
[2022-07-24 16:18] LABS: Glucose,Whole Blood 195 mg/dL (70-110)
[2022-07-24] MEDS: SODIUM CHLORIDE 0.9% 1,000 ML IV SCH (18:09)
[2022-07-24 19:49] LABS: Glucose,Whole Blood 193 mg/dL (70-110)
--- NOTE | 2022-07-24 20:23 | P.CRDCN ---
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 She reports significant family history of mother with a stroke and father with an OK at age of 84. She follows with Dr. Menchaca cardiology reports she had an echocardiogram approximately 3 months ago and was told her EF was 35%. She was found to be in A. fib with RVR and cardiology was consulted and she was started on a diltiazem drip. Patient was evaluated by vascular surgery, patient is to undergo possible right lower extremity TMA versus BKA and surgery is requesting cardiac clearance. Patient reports feeling a little better today, denies any chest pain, mild shortness of breath. She is able to walk around at home but overall her activities are limi yeni due to pain in her right foot. Labs reviewed: Troponin negative 1, TSH normal, INR was 4.8 on admission, WBC 14.5, hemoglobin 13.2, platelet 302, creatinine 0.8, potassium 4.7, magnesium 1.3. She does report that she saw her cardiology recently and was to the ED but she did not go at that time. Denies any history of cardioversion or ablation. REVIEW OF SYSTEMS: No fever or chills. No cough or expectoration. No diaphoresis. Patient denies headache, dizziness, blurred vision, double vision. Patient denies any stomach discomfort. No nausea, vomiting. No hematochezia. No hematemesis. Denies any black stools or blood in his stools. Denies dysuria or hematuria. No muscle weakness or numbness. No chest pain or pressure. PHYSICAL EXAMINATION: This is a 66-year-old female in no apparent distress at the time of my examination. HEENT: Head is atraumatic, normocephalic. Pupils are equal, round. Sclerae anicteric. Conjunctivae are clear. Mucous membranes of the mouth are moist. Neck is supple. There is no jugular venous distention. No carotid bruit is heard. CHEST EXAMINATION: Lungs are clear to auscultation. No chest wall tenderness is noted on palpation or with deep breathing. HEART EXAMINATION: Irregular rate and rhythm. S1, S2 heard. No murmurs, gallops or rub. ABDOMEN: Soft, nontender. Bowel sounds are heard. EXTREMITIES: Right foot with black first, fourth, fifth digits, pulses are palpable, foot is warm. NEUROLOGIC EXAMINATION: Patient is awake, alert and oriented x3. IMPRESSION AND PLAN: Atrial fibrillation Diabetes type 2 Hypertension Chronic wound of right foot Elevated INR, 4.8 on warfarin Preoperative cardiology exam PLAN: Telemetry reviewed she is still in A. fib with RVR heart rates [id number]. Increase Toprol to 100mg daily, wean cardizem drip as tolerates. We will check echo to eval heart function and structure, if EF is still reduced, will likely proceed with heart cath prior to cardiac clearance for surgery. Further recs pending. I am dictating on behalf of Dr. Quinten Lanier's history/physical and assessment/plan. Past Medical History Past Medical History: Atrial Fibrillation, Diabetes Mellitus, Eye Disorder, Hyperlipidemia, Hypertension Additional Past Medical History / Comment(s): CATARACT, chronic foot wounds EF 35%, PAD, History of Any Multi-Drug Resistant Organisms: None Reported Past Surgical History: Back Surgery, Section Past Anesthesia/Blood Transfusion Reactions: No Reported Reaction Past Psychological History: No Psychological Hx Reported Smoking Status: Never smoker Past Alcohol Use History: Occasional Past Drug Use History: None Reported - Past Family History Father Family Medical History: Cancer Medications and Allergies Home Medications Medication Instructions Recorded Confirmed Type Insulin Detemir [Levemir Flexpen] 15 unit SQ BID 11/14/13 07/23/22 History metFORMIN HCL [Glucophage] 1,000 mg PO BID 11/14/13 07/23/22 History Acetaminophen Tab [Tylenol Tab] 1,000 mg PO Q6HR PRN 07/23/22 07/23/22 History Atorvastatin [Lipitor] 40 mg PO DAILY 07/23/22 07/23/22 History Cephalexin [Keflex] 500 mg PO TID 07/23/22 07/23/22 History Clopidogrel [Plavix] 75 mg PO DAILY 07/23/22 07/23/22 History DULoxetine HCL [Cymbalta] 30 mg PO DAILY 07/23/22 07/23/22 History Gabapentin 300 mg PO TID 07/23/22 07/23/22 History Losartan/Hydrochlorothiazide 1 tab PO DAILY 07/23/22 07/23/22 History [Losartan-Hctz 100-12.5 mg Tab] Metoprolol Succinate [Toprol XL] 50 mg PO DAILY 07/23/22 07/23/22 History Warfarin [Coumadin] 2.5 mg PO MO 07/23/22 07/23/22 History Warfarin [Coumadin] 5 mg PO SUTUWETHFRSA 07/23/22 07/23/22 History dilTIAZem HCL [dilTIAZem HCL 24Hr 120 mg PO DAILY 07/23/22 07/23/22 History ER (Xr)] traMADol HCL 25 mg PO BID PRN 07/23/22 07/23/22 History Allergies Allergy/AdvReac Type Severity Reaction Status Date / Time No Known Allergies Allergy Verified 07/23/22 14:52 Physical Exam Vitals: Vital Signs Temp Pulse Pulse Resp BP BP Pulse Ox 07/24/22 08:55 97 07/24/22 04:00 98.2 F 104 H 18 117/66 97 07/24/22 00:00 98.0 F 92 18 137/62 97 07/23/22 20:45 104 H 18 109/65 97 07/23/22 20:30 97.9 F 105 H 19 146/67 98 07/23/22 19:35 107 H 18 124/99 98 07/23/22 18:18 89 18 100/66 07/23/22 15:14 98 18 130/73 96 07/23/22 13:35 145 H 22 95 07/23/22 13:19 97.5 F L 85 16 127/79 96 Intake and Output 07/23/22 07/24/22 07/24/22 22:59 06:59 14:59 Intake Total 237 500 Output Total 600 Balance 237 -600 500 Intake: Oral 237 500 Output: Urine 600 Other: Voiding Method Toilet Toilet # Voids 1 Weight 88.451 kg 86.4 kg Results 07/24/22 07:40 07/24/22 07:40 Cardiac Enzymes 07/23/22 07/23/22 Range/Units 13:47 13:47 AST 20 (14-36) U/L Troponin I <0.012 (0.000-0.034) ng/mL Coagulation 07/23/22 Range/Units 13:47 PT 46.8 H (9.0-12.0) sec APTT 40.0 H (22.0-30.0) sec CBC 07/23/22 07/24/22 Range/Units 13:47 07:40 WBC 14.5 H 11.7 H (3.8-10.6) k/uL RBC 4.50 3.87 (3.80-5.40) m/uL Hgb 13.2 11.7 (11.4-16.0) gm/dL Hct 40.1 35.2 (34.0-46.0) % Plt Count 302 274 (150-450) k/uL Comprehensive Metabolic Panel 07/23/22 07/24/22 Range/Units 13:47 07:40 Sodium 136 L 138 (137-145) mmol/L Potassium 4.7 4.1 (3.5-5.1) mmol/L Chloride 99 103 (98-107) mmol/L Carbon Dioxide 19 L 23 (22-30) mmol/L BUN 21 H 15 (7-17) mg/dL Creatinine 0.80 0.66 (0.52-1.04) mg/dL Glucose 192 H 177 H (74-99) mg/dL Calcium 9.9 8.9 (8.4-10.2) mg/dL AST 20 (14-36) U/L ALT 15 (4-34) U/L Alkaline Phosphatase 65 (38-126) U/L Total Protein 8.1 (6.3-8.2) g/dL Albumin 4.5 (3.5-5.0) g/dL Current Medications Generic Name Dose Route Start Last Admin Trade Name Jeremyq PRN Reason Stop Dose Admin Acetaminophen 1,000 mg 07/23/22 17:22 Acetaminophen Tab 500 Mg Tab PO Q6HR PRN Pain or Fever > 100.5 Atorvastatin Calcium 40 mg 07/24/22 09:00 07/24/22 10:16 Atorvastatin 40 Mg Tab PO 40 mg DAILY JERAMIE Administration Clopidogrel Bisulfate 75 mg 07/24/22 09:00 07/24/22 10:17 Clopidogrel 75 Mg Tab PO 75 mg DAILY JERAMIE Administration Dextrose/Water 25 ml 07/23/22 21:52 Dextrose 50% Syringe 50 Ml IVP PER PROTOCOL PRN Hypoglycemia Protocol Dextrose/Water 50 ml 07/23/22 21:52 Dextrose 50% Syringe 50 Ml IVP PER PROTOCOL PRN Hypoglycemia Protocol Diltiazem HCl 120 mg 07/24/22 09:00 07/24/22 10:16 Diltiazem Cd 120 Mg Cap.Er.24h PO 120 mg DAILY JERAMIE Administration Duloxetine HCl 30 mg 07/24/22 09:00 07/24/22 10:16 Duloxetine Hcl 30 Mg Capsule.Dr PO 30 mg DAILY JERAMIE Administration Gabapentin 300 mg 07/23/22 22:00 07/24/22 10:16 Gabapentin 300 Mg Cap PO 300 mg TID JERAMIE Administration Hydrochlorothiazide 12.5 mg 07/24/22 09:00 07/24/22 10:17 Hydrochlorothiazide 12.5 Mg Cap PO 12.5 mg DAILY JERAMIE Administration Hydromorphone HCl 0.5 mg 07/24/22 09:30 07/24/22 10:17 Hydromorphone 0.5 Mg/0.5 Ml Syringe IVP 07/25/22 09:31 0.5 mg Q6HR PRN Administration Pain Diltiazem HCl 125 mg/ Sodium 125 mls @ 5 mls/hr 07/23/22 13:45 07/23/22 14:26 Chloride IV 5 mg/hr .Q24H JERAMIE 5 mls/hr Administration 5 MG/HR Sodium Chloride 1,000 mls @ 20 mls/hr 07/23/22 17:30 07/23/22 19:26 Saline 0.9% IV 20 mls/hr .Q24H JERAMIE Administration Cefazolin Sodium 2 gm/ Sodium 50 mls @ 100 mls/hr 07/24/22 00:00 07/24/22 10:16 Chloride IVPB 100 mls/hr Q8HR JERAMIE Administration Protocol Insulin Aspart 0 unit 07/24/22 07:30 Insulin Aspart (Novolog) 100 Unit/Ml Vial SQ ACHS [facility] Protocol Insulin Detemir 15 unit 07/23/22 21:00 07/23/22 20:53 Insulin Detemir (Levemir) 100 Unit/Ml Syr SQ 15 unit BID@0700,2100 JERAMIE Administration Losartan Potassium 100 mg 07/24/22 09:00 07/24/22 10:16 Losartan 50 Mg Tab PO 100 mg DAILY JERAMIE Administration Metformin HCl 1,000 mg 07/23/22 21:00 07/24/22 10:17 Metformin 500 Mg Tab PO 1,000 mg BID JERAMIE Administration Metoprolol Succinate 50 mg 07/24/22 09:00 07/24/22 10:17 Metoprolol Succinate (Er) 50 Mg Tab.Er.24h PO 50 mg DAILY JERAMIE Administration Naloxone HCl 0.2 mg 07/23/22 17:20 Naloxone 0.4 Mg/Ml 1 Ml Vial IV Q2M PRN Opioid Reversal Ondansetron HCl 4 mg 07/23/22 17:20 Ondansetron 4 Mg/2 Ml Vial IVP Q8HR PRN Nausea And Vomiting Tramadol HCl 25 mg 07/23/22 17:22 07/23/22 21:11 Tramadol 50 Mg Tab PO 25 mg BID PRN Administration Pain Intake and Output 07/23/22 07/24/22 07/24/22 22:59 06:59 14:59 Intake Total 237 500 Output Total 600 Balance 237 -600 500 Intake: Oral 237 500 Output: Urine 600 Other: Voiding Method Toilet Toilet # Voids 1 Weight 88.451 kg 86.4 kg 07/24/22 07:40 07/24/22 07:40
--- NOTE | 2022-07-25 02:03 | P.PN ---
Subjective Progress Note Date: 07/24/22 Patient is a 66-year-old female with a known history of chronic atrial fibrillation on anticoagulation with warfarin, chronic CHF with ejection fraction 35% as per recent echocardiogram at outside hospital facility, hypertension, hyperlipidemia, peripheral vascular disease with recent angioplasty x3 during last 3 months presents to ER with the complaints of generalized weakness and felt like heart exploding. Patient became cold clammy and diaphoretic. Patient's daughter noticed that it is unusual for her and was brought to the ER for evaluation. Patient follows with cardiology and vascular surgery at different hospital facility until recently she was seen by vascular surgery in the clinic on due to right great toe gangrenous changes. Patient was given prescription for Keflex which she has been taking. Patient would like to follow-up with [facility] which is close to her place. Otherwise patient denies any fever or chills. No leg swelling. No nausea vomiting or abdominal pain or diarrhea. Chest x-ray showed no acute pulmonary disease. X-ray of the foot showed no acute fracture or dislocation. Soft tissue swelling noted greatest at the plantar aspect of the distal right foot. Laboratory data showed WBC 14.5 hemoglobin 13.2 and platelets 302 neutrophils 12.5 INR 4.8 Sodium 136 potassium 4.7 chloride 99 bicarb is 19 BUN 21 creatinine 0.8 and lactic acid 2.2 and magnesium 1.3 proBNP 1530, troponin x1 negative, albumin 4.5, TSH level is 0.861 EKG showed atrial fibrillation with rapid response with heart rate in 130s. 07/24/2022 Patient is currently resting in the bed. Awake alert and oriented x3. Feels better. No chest pain. Patient is complaining of right foot pain. Otherwise patient remains on atrial fibrillation with rapid Rate. Currently on Cardizem drip. Metoprolol dose was increased and also on anticoagulation with warfarin. 2D echocardiogram was ordered and laboratory data showed magnesium 1.5, WBC 11.7 and platelets 274 BUN 15 and creatinine 0.66 and blood sugar is 177. Current medications reviewed. Objective - Vital Signs Vital signs: Vital Signs Temp 98.1 F 07/24/22 16:00 Pulse 87 07/24/22 16:00 Resp 18 07/24/22 16:00 BP 120/67 07/24/22 16:00 Pulse Ox 97 07/24/22 16:00 FiO2 Intake & Output 07/24/22 07/24/22 07/25/22 06:59 18:59 06:59 Intake Total 237 875 Output Total 600 Balance -363 875 Weight 86.4 kg Intake: Intake, IV Titration 125 Amount Diltiazem 125 mg In 125 Sodium Chloride 0.9% 100 ml @ 5 MG/HR 5 mls/hr IV .Q24H JERAMIE Rx#:[id number] Oral 237 750 Output: Urine 600 Other: Voiding Method Toilet Toilet Toilet # Voids 1 2 - Exam PHYSICAL EXAMINATION: Patient is lying in the bed comfortably, no acute distress, awake alert and oriented.. HEENT: Normocephalic. Neck is supple. Pupils reactive. Nostrils clear. Oral cavity is moist. Neck reveals no JVD, carotid bruits, or thyromegaly. CHEST EXAMINATION: Trachea is central. Symmetrical expansion. Lung torres clear to auscultation and percussion. CARDIAC: Normal S1, S2 with no gallops. Irregularly irregular rhythm. ABDOMEN: Soft. Bowel sounds present. Nontender. No organomegaly. No abdominal bruits. Extremities: reveal no edema. No clubbing or cyanosis Right great toe, fourth and fifth toe gangrenous changes with surrounding redness. Neurologically awake, alert, oriented x3 with well-coordinated movements. No focal deficits noted Skin: No rash or skin lesions. Psychiatric: Coperative. Nonsuicidal, Musculoskeletal: No joint swelling or deformity. Normal range of motion. - Labs CBC & Chem 7: 07/24/22 07:40 07/24/22 07:40 Labs: Abnormal Lab Results - Last 24 Hours (Table) 07/24/22 07/24/22 07/24/22 Range/Units 06:17 07:40 07:40 WBC 11.7 H (3.8-10.6) k/uL Neutrophils # 9.2 H (1.3-7.7) k/uL Glucose (74-99) mg/dL POC Glucose (mg/dL) 176 H (70-110) mg/dL Hemoglobin A1c 7.7 H (0.0-6.0) % Magnesium (1.6-2.3) mg/dL 07/24/22 07/24/22 07/24/22 Range/Units 07:40 07:40 11:32 WBC (3.8-10.6) k/uL Neutrophils # (1.3-7.7) k/uL Glucose 177 H (74-99) mg/dL POC Glucose (mg/dL) 188 H (70-110) mg/dL Hemoglobin A1c (0.0-6.0) % Magnesium 1.5 L (1.6-2.3) mg/dL 07/24/22 07/24/22 Range/Units 16:16 19:48 WBC (3.8-10.6) k/uL Neutrophils # (1.3-7.7) k/uL Glucose (74-99) mg/dL POC Glucose (mg/dL) 195 H 193 H (70-110) mg/dL Hemoglobin A1c (0.0-6.0) % Magnesium (1.6-2.3) mg/dL Assessment and Plan Assessment: Atrial fibrillation with rapid ventricle response. Chronic atrial fibrillation on anticoagulation with warfarin Generalized weakness and cold clamminess and palpitations secondary to above. improving Right great toe and fourth and fifth toe dry gangrenous changes with possible surrounding cellulitis.. Peripheral vascular disease with recent history of right lower extremity angioplasty x3 Chronic CHF with systolic dysfunction ejection fraction 35%. No history of stent placement Hypertension Hyperlipidemia Diabetes type 2 insulin-dependent Coumadin dosing and monitoring. Coumadin coagulopathy Plan: Patient was given IV fluid bolus in the ER. Continue with Cardizem drip. Warfarin is on hold due to supratherapeutic INR. Restarted metoprolol and Cardizem CD. Metoprolol dose increased today. Cardiology is on board. Pending TTE for left ventricular systolic function evaluation further work-up including cardiac catheter before clearing for surgery... Will be continued on IV antibiotics and vascular surgery is planning for OR due to gangrenous changes of the right great toe. Continue with Plavix, statins and other home medications. Continue with insulin regimen and titrate dose as needed. Follow-up closely. Prognosis is guarded at this time. Time with Patient: Greater than 30
[2022-07-25 05:53] LABS: Glucose,Whole Blood 144 mg/dL (70-110)
[2022-07-25] MEDS: INSULIN ASPART (NovoLOG) 100 UNIT/ML VIAL SQ SCH ×4 (06:08→21:19)
[2022-07-25] MEDS: INSULIN DETEMIR (LEVEMIR) 100 UNIT/ML SYR SQ SCH ×2 (06:33→21:07)
[2022-07-25 08:14] LABS: Basophils % (A) 0 %; Eosinophils # (A) 0.2 k/uL (0-0.7); Eosinophils % (A) 2 %; HCT 34.7 % (34.0-46.0); HGB 11.3 gm/dL (11.4-16.0); Lymphocytes # (A) 1.6 k/uL (1.0-4.8); Lymphocytes % (A) 17 %; MCH 28.8 pg (25.0-35.0); MCHC 32.6 g/dL (31.0-37.0); MCV 88.4 fL (80.0-100.0); Monocytes # (A) 0.7 k/uL (0-1.0); Monocytes % (A) 7 %; Neutrophils # (A) 6.8 k/uL (1.3-7.7); Neutrophils % (A) 71 %; Platelet Count 242 k/uL (150-450); RBC 3.93 m/uL (3.80-5.40); RDW 13.4 % (11.5-15.5); WBC 9.5 k/uL (3.8-10.6)
[2022-07-25] MEDS: metFORMIN 500 MG TAB PO SCH ×2 (08:20→21:07)
[2022-07-25] MEDS: DULoxetine HCL 30 MG CAPSULE.DR PO SCH (08:20)
[2022-07-25] MEDS: CLOPIDOGREL 75 MG TAB PO SCH (08:22)
[2022-07-25] MEDS: ATORVASTATIN 40 MG TAB PO SCH (08:22)
[2022-07-25] MEDS: hydroCHLOROthiazide 12.5 MG CAP PO SCH (08:22)
[2022-07-25] MEDS: LOSARTAN 50 MG TAB PO SCH (08:22)
[2022-07-25] MEDS: METOPROLOL SUCCINATE (ER) 100 MG TAB.ER.24H PO SCH (08:22)
[2022-07-25] MEDS: GABAPENTIN 300 MG CAP PO SCH ×3 (08:22→21:19)
[2022-07-25] MEDS: DILTIAZEM CD 120 MG CAP.ER.24H PO SCH (08:22)
[2022-07-25 09:05] LABS: African American GFR (CKD) >90 (>60 ml/min/1.73 sqM); Blood Urea Nitrogen 16 mg/dL (7-17); Calcium 8.9 mg/dL (8.4-10.2); Carbon Dioxide 26 mmol/L (22-30); Glucose 152 mg/dL (74-99); Magnesium 1.9 mg/dL (1.6-2.3); Non-African American GFR(CKD) 84 (>60 ml/min/1.73 sqM); Potassium 3.8 mmol/L (3.5-5.1); Sodium 138 mmol/L (137-145)
--- NOTE | 2022-07-25 09:06 | CA ---
Transthoracic Echo Report Name: Dee Dobson Age: 66 Gender: F : 1955 Exam Date: 07/24/2022 13:38 Exam Location: [facility] [facility] Ht (in): 68 Wt (lb): 190 Ordering Physician: Robyn Shay Attending/Referring Phys: Rn Enterostomal Florinda Hope RDCS Procedure CPT: Indications: A-fib with RVR, SOB Cardiac Hx: Technical Quality: Good Contrast 1: Total Dose (mL): Contrast 2: Total Dose (mL): MEASUREMENTS (Male / Female) Normal Values 2D ECHO LV Diastolic Diameter PLAX 5.5 cm 4.2 - 5.9 / 3.9 - 5.3 cm LV Systolic Diameter PLAX 3.8 cm IVS Diastolic Thickness 1.1 cm 0.6 - 1.0 / 0.6 - 0.9 cm LVPW Diastolic Thickness 1.0 cm 0.6 - 1.0 / 0.6 - 0.9 cm LV Relative Wall Thickness 0.4 RV Internal Dim ED PLAX 3.2 cm LA Systolic Diameter LX 4.1 cm 3.0 - 4.0 / 2.7 - 3.8 cm LV Diastolic Volume MOD 4C 89.5 cm??? LV Systolic Volume MOD 4C 63.7 cm??? LV Ejection Fraction MOD 4C 28.9 % LV Diastolic Length 4C 7.2 cm LV Systolic Length 4C 6.5 cm LV Diastolic Volume MOD 2C 79.6 cm??? LV Systolic Volume MOD 2C 51.3 cm??? LV Ejection Fraction MOD 2C 35.6 % LV Diastolic Length 2C 7.0 cm LV Systolic Length 2C 6.2 cm LA Volume 72.4 cm??? 18 - 58 / 22 - 52 cm??? M-MODE Aortic Root Diameter MM 3.2 cm MV E Point Septal Separation 1.0 cm AV Cusp Separation MM 1.8 cm DOPPLER AV Peak Velocity 136.4 cm/s AV Peak Gradient 7.4 mmHg MV Area PHT 6.1 cm??? MV Deceleration Time 176.4 ms TR Peak Velocity 240.1 cm/s TR Peak Gradient 23.0 mmHg Right Ventricular Systolic Press 26.9 mmHg FINDINGS Left Ventricle Left ventricular ejection fraction is estimated at 35-40 %. Mildly increased septal wall thickness. Mildly increased posterior wall thickness. Mildly increased left ventricular diastolic diameter. Right Ventricle Normal right ventricular size and function. Right ventricular systolic pressure within normal limits. Right Atrium Normal right atrial size. Left Atrium Mildly increased left atrial diameter. Moderately increased left atrial volume. Mildly increased left atrial area. Mitral Valve Mitral valve thickened. Mild mitral annular calcification. [id number] mitral regurgitation. Aortic Valve Trileaflet aortic valve. No aortic valve stenosis or regurgitation. Tricuspid Valve Structurally normal tricuspid valve. Mild tricuspid regurgitation. Pulmonic Valve Structurally normal pulmonic valve. Trace pulmonic regurgitation. Pericardium Normal pericardium. No pericardial effusion. Aorta Normal size aortic root and proximal ascending aorta. CONCLUSIONS Impaired LV function with EF between 35-40% Moderate mitral regurgitation with posterior directed jet. The MR is likely secondary to cardiomyopathy Previewed by: Dr. Pipo Alfaro MD (Electronically Signed) Final Date: 25 July 2022 09:05
[2022-07-25 09:36] LABS: Anion Gap 9 mmol/L; Chloride 103 mmol/L (98-107)
[2022-07-25 09:41] LABS: INR 2.7 (<1.2); Prothrombin Time 26.3 sec (9.0-12.0)
--- NOTE | 2022-07-25 09:46 | P.PN ---
Subjective Progress Note Date: 07/25/22 Principal diagnosis: PAD, dry gangrene toes Patient seen and examined today as a follow-up. Cardiology following patient. Patient still had atrial fibrillation with RVR currently on Cardizem drip. He underwent echocardiogram that is showing impaired LV function with EF between 35 and 40%, moderate mitral regurgitation with posterior directed jet. MR is likely secondary to cardiomyopathy. Patient denies any shortness of breath or chest pain. Denies any fevers or chills. She does report pain in her right foot and toes. Objective - Vital Signs Vital signs: Vital Signs Temp 98.2 F 07/25/22 04:00 Pulse 82 07/25/22 04:00 Resp 18 07/25/22 04:00 BP 117/62 07/25/22 04:00 Pulse Ox 97 07/25/22 04:00 FiO2 Intake & Output 07/24/22 07/25/22 07/25/22 18:59 06:59 18:59 Intake Total 875 Balance 875 Intake: Intake, IV Titration 125 Amount Diltiazem 125 mg In 125 Sodium Chloride 0.9% 100 ml @ 5 MG/HR 5 mls/hr IV .Q24H [facility] Rx#:[id number] Oral 750 Other: Voiding Method Toilet Toilet # Voids 2 2 - Exam General appearance: The patient is alert, oriented, appears in no acute distress. HET: Head is normocephalic and atraumatic. Pupils are equal and reactive. Neck: Supple. Heart: Irregular rate and rhythm. Lungs: Equal expansion, normal respiratory effort. Abdomen: Soft, nontender, nondistended. Extremities: Bilateral lower extremities warm to the touch. Right foot with petechiae like discoloration, great toe, fourth and fifth toes with dry gangrene. Neurological: No focal deficits. Alert and oriented. - Labs CBC & Chem 7: 07/25/22 07:58 07/25/22 07:58 Labs: Abnormal Lab Results - Last 24 Hours (Table) 07/24/22 07/24/22 07/24/22 Range/Units 07:40 07:40 11:32 Hgb (11.4-16.0) gm/dL Glucose (74-99) mg/dL POC Glucose (mg/dL) 188 H (70-110) mg/dL Hemoglobin A1c 7.7 H (0.0-6.0) % Magnesium 1.5 L (1.6-2.3) mg/dL 07/24/22 07/24/22 07/25/22 Range/Units 16:16 19:48 05:51 Hgb (11.4-16.0) gm/dL Glucose (74-99) mg/dL POC Glucose (mg/dL) 195 H 193 H 144 H (70-110) mg/dL Hemoglobin A1c (0.0-6.0) % Magnesium (1.6-2.3) mg/dL 07/25/22 07/25/22 Range/Units 07:58 07:58 Hgb 11.3 L (11.4-16.0) gm/dL Glucose 152 H (74-99) mg/dL POC Glucose (mg/dL) (70-110) mg/dL Hemoglobin A1c (0.0-6.0) % Magnesium (1.6-2.3) mg/dL Assessment and Plan Assessment: 1. Dry Gangrene toes right foot 2. Peripheral arterial disease currently on Plavix 3. Rapid atrial fibrillation 4. Supratherapeutic INR 5. Previous revascularization of right lower extremity 6. Diabetes mellitus 7. History atrial fibrillation on coumadin 8. History hypertension Plan: 1. Local wound care per recommendations from wound care clinic 2. Cardiology on consult, appreciate cardiac clearance for possible right lower extremity TMA versus below the knee amputation 3. Continue medical management 4. Further recommendations forthcoming per vascular surgeon Thank you for this consultation, we will continue to follow. The impression and plan of care has been dictated as directed. I performed a history and examination of this patient, discussed the same with the dictator. I agree with the dictator's note ,documented as a scribe. Any additional findings or plans will be noted.
[2022-07-25] MEDS: traMADol 50 MG TAB PO PRN (10:08)
[2022-07-25 11:33] LABS: Glucose,Whole Blood 179 mg/dL (70-110)
[2022-07-25] MEDS: HYDROmorphone 0.5 MG/0.5 ML SYRINGE IVP PRN ×2 (14:29→21:18)
[2022-07-25 16:23] LABS: Glucose,Whole Blood 203 mg/dL (70-110)
[2022-07-25] MEDS: DILTIAZEM 125 MG in SODIUM CHLORIDE 0.9% 100 ML IV SCH (16:24)
[2022-07-25] MEDS: HYDROcodone/APAP 5-325MG 1 EACH TAB PO PRN ×2 (16:25→23:41)
[2022-07-25] MEDS: SODIUM CHLORIDE 0.9% 1,000 ML IV SCH (17:22)
--- NOTE | 2022-07-25 19:48 | P.PN ---
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 She reports significant family history of mother with a stroke and father with an PR at age of 84. She follows with Dr. Menchaca cardiology reports she had an echocardiogram approximately 3 months ago and was told her EF was 35%. She was found to be in A. fib with RVR and cardiology was consulted and she was started on a diltiazem drip. Patient was evaluated by vascular surgery, patient is to undergo possible right lower extremity TMA versus BKA and surgery is requesting cardiac clearance. Patient reports feeling a little better today, denies any chest pain, mild shortness of breath. She is able to walk around at home but overall her activities are limited due to pain in her right foot. Labs reviewed: Troponin negative 1, TSH normal, INR was 4.8 on admission, WBC 14.5, hemoglobin 13.2, platelet 302, creatinine 0.8, potassium 4.7, magnesium 1.3. She does report that she saw her cardiology recently and was to the ED but she did not go at that time. Denies any history of cardioversion or ablation. 07/25 A/Ox3, denies any chest pain or pressure. Reports surgery may be the end of this week. PHYSICAL EXAMINATION: This is a 66-year-old female in no apparent distress at the time of my examination. HEENT: Head is atraumatic, normocephalic. Pupils are equal, round. Sclerae anicteric. Conjunctivae are clear. Mucous membranes of the mouth are moist. Neck is supple. There is no jugular venous distention. No carotid bruit is heard. CHEST EXAMINATION: Lungs are clear to auscultation. No chest wall tenderness is noted on palpation or with deep breathing. HEART EXAMINATION: Irregular rate and rhythm. S1, S2 heard. No murmurs, gallops or rub. ABDOMEN: Soft, nontender. Bowel sounds are heard. EXTREMITIES: Right foot with black first, fourth, fifth digits, pulses are palpable, foot is warm. NEUROLOGIC EXAMINATION: Patient is awake, alert and oriented x3. IMPRESSION AND PLAN: Atrial fibrillation Diabetes type 2 Hypertension Chronic wound of right foot Supratherapeutic INR, 4.8 on warfarin Preoperative cardiology exam PLAN: Echocardiogram shows ejection fraction 3540%, moderate mitral regurgitation. Wean of cardizem drip. We'll plan to proceed with heart catheterization however INR was supratherapeutic on admission of 4.8, we'll check INR proior to proceeding with heart cath. INR is 2.8, continue to hold warfarin and recheck in the am, we plan for possible heart cath tomorrow 07/26. NPO after midnight. I am dictating on behalf of Dr. Quinten Lanier's history/physical and assessment/plan. Objective - Vital Signs Vital signs: Vital Signs Temp 98.2 F 07/25/22 04:00 Pulse 82 07/25/22 04:00 Resp 18 07/25/22 04:00 BP 117/62 07/25/22 04:00 Pulse Ox 97 07/25/22 04:00 FiO2 Intake & Output 07/24/22 07/25/22 07/25/22 18:59 06:59 18:59 Intake Total 875 Balance 875 Intake: Intake, IV Titration 125 Amount Diltiazem 125 mg In 125 Sodium Chloride 0.9% 100 ml @ 5 MG/HR 5 mls/hr IV .Q24H [facility] Rx#:[id number] Oral 750 Other: Voiding Method Toilet Toilet # Voids 2 2 - Labs CBC & Chem 7: 07/25/22 07:58 07/25/22 07:58 Labs: Abnormal Lab Results - Last 24 Hours (Table) 07/24/22 07/24/22 07/24/22 Range/Units 07:40 07:40 11:32 Hgb (11.4-16.0) gm/dL Glucose (74-99) mg/dL POC Glucose (mg/dL) 188 H (70-110) mg/dL Hemoglobin A1c 7.7 H (0.0-6.0) % Magnesium 1.5 L (1.6-2.3) mg/dL 07/24/22 07/24/22 07/25/22 Range/Units 16:16 19:48 05:51 Hgb (11.4-16.0) gm/dL Glucose (74-99) mg/dL POC Glucose (mg/dL) 195 H 193 H 144 H (70-110) mg/dL Hemoglobin A1c (0.0-6.0) % Magnesium (1.6-2.3) mg/dL 07/25/22 07/25/22 Range/Units 07:58 07:58 Hgb 11.3 L (11.4-16.0) gm/dL Glucose 152 H (74-99) mg/dL POC Glucose (mg/dL) (70-110) mg/dL Hemoglobin A1c (0.0-6.0) % Magnesium (1.6-2.3) mg/dL
[2022-07-25 20:05] LABS: Glucose,Whole Blood 194 mg/dL (70-110)
--- NOTE | 2022-07-26 03:26 | PN ---
PROGRESS NOTE DATE OF SERVICE: 07/25/2022 SUBJECTIVE: This is a 66-year-old woman, who was admitted with atrial fibrillation with rapid ventricular rate, also had right great toe and fourth and fifth toe gangrenous changes also. Surgery is tentatively planned but before that Cardiology is planning further cardiac evaluation with possibly a stress test. PAST MEDICAL HISTORY: Reviewed. REVIEW OF SYSTEMS: Fourteen-point review is negative except as mentioned earlier. PHYSICAL EXAMINATION: VITAL SIGNS: Pulse is 90, blood pressure ntd respirations 18. CHEST: A few scattered rhonchi. ABDOMEN: Soft. LEGS: Right foot gangrene. NERVOUS SYSTEM: No focal deficits. LABORATORY DATA: INR 2.7. The rest of the labs are noted. ASSESSMENT: 1. Atrial fibrillation with fast ventricular rate. 2. Chronic atrial fibrillation. 3. Right great toe, fourth and fifth toe gangrenous changes. 4. Peripheral vascular disease. 5. Chronic congestive heart failure. 6. Hypertension. 7. Hyperlipidemia. 8. Diabetes mellitus type 2. 9. Multiple medical issues. RECOMMENDATIONS AND DISCUSSION: I recommend to continue current symptomatic treatment. Otherwise, the patient appears to be euvolemic and the heart rate is rather under control. The PT/INR is still elevated. We will continue to monitor with Cardiology and Vascular Surgery and further recommendations to follow. Wound care has also seen the patient. MMODL / IJN: [id number] / MTDD
[2022-07-26] MEDS: INSULIN ASPART (NovoLOG) 100 UNIT/ML VIAL SQ SCH ×4 (04:50→20:50)
[2022-07-26] MEDS: INSULIN DETEMIR (LEVEMIR) 100 UNIT/ML SYR SQ SCH ×2 (04:50→20:49)
[2022-07-26] MEDS: HYDROmorphone 0.5 MG/0.5 ML SYRINGE IVP PRN ×2 (04:51→15:18)
[2022-07-26 05:55] LABS: Glucose,Whole Blood 189 mg/dL (70-110)
[2022-07-26] MEDS ORDERED: HEPARIN SODIUM,PORCINE 10,000 UNIT in SODIUM CHLORIDE 0.9% 1,000 ML IRRIGATION PRN (07:00)
[2022-07-26] MEDS ORDERED: HEPARIN SODIUM,PORCINE 2,500 UNIT in SODIUM CHLORIDE 0.9% 250 ML IRRIGATION PRN (07:00)
[2022-07-26] MEDS: metFORMIN 500 MG TAB PO SCH ×2 (08:06→20:51)
[2022-07-26] MEDS: CLOPIDOGREL 75 MG TAB PO SCH (08:14)
[2022-07-26] MEDS: hydroCHLOROthiazide 12.5 MG CAP PO SCH (08:14)
[2022-07-26] MEDS: ATORVASTATIN 40 MG TAB PO SCH (08:14)
[2022-07-26] MEDS: DILTIAZEM CD 120 MG CAP.ER.24H PO SCH (08:14)
[2022-07-26] MEDS: DULoxetine HCL 30 MG CAPSULE.DR PO SCH ×2 (08:14→08:21)
[2022-07-26] MEDS: METOPROLOL SUCCINATE (ER) 100 MG TAB.ER.24H PO SCH (08:14)
[2022-07-26] MEDS: LOSARTAN 50 MG TAB PO SCH (08:14)
[2022-07-26] MEDS: GABAPENTIN 300 MG CAP PO SCH ×3 (08:14→20:51)
[2022-07-26] MEDS: HYDROcodone/APAP 5-325MG 1 EACH TAB PO PRN ×2 (08:19→16:13)
[2022-07-26 08:52] LABS: Basophils % (A) 0 %; Eosinophils # (A) 0.3 k/uL (0-0.7); Eosinophils % (A) 3 %; HCT 34.7 % (34.0-46.0); HGB 11.3 gm/dL (11.4-16.0); Lymphocytes # (A) 1.6 k/uL (1.0-4.8); Lymphocytes % (A) 17 %; MCH 28.5 pg (25.0-35.0); MCHC 32.5 g/dL (31.0-37.0); MCV 87.7 fL (80.0-100.0); Mean Platelet Volume 8.1; Monocytes # (A) 0.8 k/uL (0-1.0); Monocytes % (A) 9 %; Neutrophils # (A) 6.5 k/uL (1.3-7.7); Neutrophils % (A) 68 %; Platelet Count 241 k/uL (150-450); RBC 3.96 m/uL (3.80-5.40); RDW 13.3 % (11.5-15.5); WBC 9.5 k/uL (3.8-10.6)
[2022-07-26 08:57] LABS: INR 1.9 (<1.2)
[2022-07-26 08:59] LABS: ALT 10 U/L (4-34); AST 18 U/L (14-36); African American GFR (CKD) >90 (>60 ml/min/1.73 sqM); Albumin 3.7 g/dL (3.5-5.0); Alkaline Phosphatase 51 U/L (38-126); Anion Gap 11 mmol/L; Blood Urea Nitrogen 14 mg/dL (7-17); Carbon Dioxide 26 mmol/L (22-30); Chloride 101 mmol/L (98-107); Glucose 184 mg/dL (74-99); Non-African American GFR(CKD) >90 (>60 ml/min/1.73 sqM); Potassium 3.8 mmol/L (3.5-5.1); Sodium 138 mmol/L (137-145); Total Bilirubin 0.5 mg/dL (0.2-1.3); Total Protein 7.1 g/dL (6.3-8.2)
--- NOTE | 2022-07-26 09:52 | P.PN ---
Subjective Progress Note Date: 07/26/22 Principal diagnosis: PAD, dry gangrene toes Patient was seen and examined today lying in bed. She is without any new complaints. Patient is awaiting lab results as she may go for cardiac cath today based on her INR. She remains on Cardizem drip. Coumadin has been on hold. She's been afebrile. Objective - Vital Signs Vital signs: Vital Signs Temp 98.2 F 07/26/22 04:15 Pulse 94 07/26/22 04:15 Resp 14 07/26/22 04:15 BP 124/79 07/26/22 04:15 Pulse Ox 96 07/26/22 07:52 FiO2 21 07/26/22 07:52 Intake & Output 07/25/22 07/26/22 07/26/22 18:59 06:59 18:59 Intake Total 480.583 100 Output Total 325 Balance 480.583 -225 Weight 86.1 kg Intake: Intake, IV Titration 120.583 100 Amount Diltiazem 125 mg In 120.583 Sodium Chloride 0.9% 100 ml @ 5 MG/HR 5 mls/hr IV .Q24H [facility] Rx#:[id number] Sodium Chloride 0.9% 1, 100 000 ml @ 20 mls/hr IV . Q24H [facility] Rx#:[id number] Oral 360 Output: Urine 325 Other: Voiding Method Toilet Toilet # Voids 2 - Exam General appearance: The patient is alert, oriented, appears in no acute distress. HET: Head is normocephalic and atraumatic. Pupils are equal and reactive. Neck: Supple. Heart: Irregular rate and rhythm. Lungs: Equal expansion, normal respiratory effort. Abdomen: Soft, nontender, nondistended. Extremities: Bilateral lower extremities warm to the touch. Right foot with petechiae like discoloration, great toe, fourth and fifth toes with dry gangrene. Neurological: No focal deficits. Alert and oriented. - Labs CBC & Chem 7: 07/26/22 08:01 07/26/22 08:01 Labs: Abnormal Lab Results - Last 24 Hours (Table) 07/25/22 07/25/22 07/25/22 Range/Units 07:58 09:05 11:32 PT 26.3 H (9.0-12.0) sec INR 2.7 H (<1.2) Glucose 152 H (74-99) mg/dL POC Glucose (mg/dL) 179 H (70-110) mg/dL 07/25/22 07/25/22 07/26/22 Range/Units 16:22 20:00 05:52 PT (9.0-12.0) sec INR (<1.2) Glucose (74-99) mg/dL POC Glucose (mg/dL) 203 H 194 H 189 H (70-110) mg/dL Microbiology - Last 24 Hours (Table) 07/23/22 13:47 Blood Culture - Preliminary Blood Assessment and Plan Assessment: 1. Dry Gangrene toes right foot 2. Peripheral arterial disease currently on Plavix 3. Rapid atrial fibrillation 4. Supratherapeutic INR 5. Previous revascularization of right lower extremity 6. Diabetes mellitus 7. History atrial fibrillation on coumadin 8. History hypertension Plan: 1. Local wound care per recommendations from wound care clinic 2. Cardiology on consult, appreciate cardiac clearance for possible right lower extremity TMA versus below the knee amputation 3. Continue medical management 4. Further recommendations forthcoming per vascular surgeon Thank you for this consultation, we will continue to follow. The impression and plan of care has been dictated as directed. Dr. Butler I performed a history and examination of this patient, discussed the same with the dictator. I agree with the dictator's note ,documented as a scribe. Any additional findings or plans will be noted.
--- NOTE | 2022-07-26 11:18 | P.CONS ---
History of Present Illness - Reason for Consult Consult date: 07/26/22 wound care - History of Present Illness This is a 66-year-old female known to the wound care center with dry gangrene to the right great toe the right lateral foot including the fourth and fifth digit. Patient is being evaluated for possible TMA or below the knee amputation. Patient has been utilizing silver foam to the site. Due to the pain that the dressing causes she has no dressing on at this time. Patient would prefer to have no dressing as long as there is no drainage. Patient is agreeable to the plan of care of applying the dressing only if there is drainage noted. Review Of Systems: Constitutional: No fever, no chills, no night sweats. No weight change. No weakness, fatigue or lethargy. No daytime sleepiness. Integumentary:reports wounds, no lesions. No rash or pruritus. No unusual bruising. No change in hair or nails. Physical exam: General Appearance: Alert, cooperative, no distress, appears stated age. Skin: See HPI all other Skin color, texture, tugor normal, no rashes or lesions. Neurologic: Alert oriented x3 Assessment: 1. 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 Diabetes with foot ulceration 3. Peripheral vascular disease Plan: 1. Awaiting surgical decision. Patient has been utilizing silver foam to the site however due to discomfort and no drainage noted dressing at this time. Patient will continue to follow up in the wound care center upon discharge. Thank you for the consultation any questions please contact the wound care center DNP note has been reviewed and discussed with Dr. Garcia and the impression and plan of care has been directed as dictated. Past Medical History Past Medical History: Atrial Fibrillation, Diabetes Mellitus, Eye Disorder, Hyperlipidemia, Hypertension Additional Past Medical History / Comment(s): CATARACT, chronic foot wounds EF 35%, PAD, History of Any Multi-Drug Resistant Organisms: None Reported Past Surgical History: Back Surgery, Section Past Anesthesia/Blood Transfusion Reactions: No Reported Reaction Past Psychological History: No Psychological Hx Reported Smoking Status: Never smoker Past Alcohol Use History: Occasional Past Drug Use History: None Reported - Past Family History Father Family Medical History: Cancer Medications and Allergies Home Medications Medication Instructions Recorded Confirmed Type Insulin Detemir [Levemir Flexpen] 15 unit SQ BID 11/14/13 07/23/22 History metFORMIN HCL [Glucophage] 1,000 mg PO BID 11/14/13 07/23/22 History Acetaminophen Tab [Tylenol Tab] 1,000 mg PO Q6HR PRN 07/23/22 07/23/22 History Atorvastatin [Lipitor] 40 mg PO DAILY 07/23/22 07/23/22 History Cephalexin [Keflex] 500 mg PO TID 07/23/22 07/23/22 History Clopidogrel [Plavix] 75 mg PO DAILY 07/23/22 07/23/22 History DULoxetine HCL [Cymbalta] 30 mg PO DAILY 07/23/22 07/23/22 History Gabapentin 300 mg PO TID 07/23/22 07/23/22 History Losartan/Hydrochlorothiazide 1 tab PO DAILY 07/23/22 07/23/22 History [Losartan-Hctz 100-12.5 mg Tab] Metoprolol Succinate [Toprol XL] 50 mg PO DAILY 07/23/22 07/23/22 History Warfarin [Coumadin] 2.5 mg PO MO 07/23/22 07/23/22 History Warfarin [Coumadin] 5 mg PO SUTUWETHFRSA 07/23/22 07/23/22 History dilTIAZem HCL [dilTIAZem HCL 24Hr 120 mg PO DAILY 07/23/22 07/23/22 History ER (Xr)] traMADol HCL 25 mg PO BID PRN 07/23/22 07/23/22 History Allergies Allergy/AdvReac Type Severity Reaction Status Date / Time No Known Allergies Allergy Verified 07/23/22 14:52 Physical Exam Vitals: Vital Signs Temp Pulse Pulse Pulse Resp BP Pulse Ox 07/26/22 09:17 98.4 F 97 20 118/53 98 07/26/22 08:00 98.4 F 97 20 118/53 98 07/26/22 07:52 96 07/26/22 04:15 98.2 F 94 14 124/79 99 07/25/22 23:20 98.0 F 93 93 90 15 131/75 98 07/25/22 20:20 97.7 F 96 16 137/75 97 07/25/22 16:00 97.9 F 114 H 18 136/87 97 07/25/22 14:00 97 16 07/25/22 12:00 98.0 F 97 16 130/76 98 FiO2 07/26/22 09:17 04/26/23 08:00 07/26/22 07:52 21 07/26/22 04:15 07/25/22 23:20 07/25/22 20:20 07/25/22 16:00 07/25/22 14:00 07/25/22 12:00 Intake and Output 07/25/22 07/26/22 07/26/22 22:59 06:59 14:59 Intake Total 400.583 Output Total 325 Balance 400.583 -325 Intake: Intake, IV Titration 220.583 Amount Diltiazem 125 mg In 120.583 Sodium Chloride 0.9% 100 ml @ 5 MG/HR 5 mls/hr IV .Q24H [facility] Rx#:[id number] Sodium Chloride 0.9% 1, 100 000 ml @ 20 mls/hr IV . Q24H [facility] Rx#:[id number] Oral 180 Output: Urine 325 Other: Voiding Method Toilet Toilet Weight 86.1 kg Results CBC & Chem 7: 07/26/22 08:01 07/26/22 08:01 Labs: Abnormal Lab Results - Last 24 Hours (Table) 07/25/22 07/25/22 07/25/22 Range/Units 11:32 16:22 20:00 Hgb (11.4-16.0) gm/dL PT (9.0-12.0) sec INR (<1.2) Glucose (74-99) mg/dL POC Glucose (mg/dL) 179 H 203 H 194 H (70-110) mg/dL 07/26/22 07/26/22 07/26/22 Range/Units 05:52 08:01 08:01 Hgb 11.3 L (11.4-16.0) gm/dL PT 19.0 H (9.0-12.0) sec INR 1.9 H (<1.2) Glucose (74-99) mg/dL POC Glucose (mg/dL) 189 H (70-110) mg/dL 07/26/22 Range/Units 08:01 Hgb (11.4-16.0) gm/dL PT (9.0-12.0) sec INR (<1.2) Glucose 184 H (74-99) mg/dL POC Glucose (mg/dL) (70-110) mg/dL Microbiology - Last 24 Hours (Table) 07/23/22 13:47 Blood Culture - Preliminary Blood Assessment and Plan (1) Atherosclerosis of [place] arteries of extremities with gangrene, right leg Current Visit: Yes Status: Acute Code(s): I70.261 - ATHSCL [place] ARTERIES OF EXTREMITIES W GANGRENE, RIGHT LEG SNOMED Code(s): 580007489 (2) Type 2 diabetes mellitus with foot ulcer Current Visit: Yes Status: Acute Code(s): E11.621 - TYPE 2 DIABETES MELLITUS WITH FOOT ULCER; L97.509 - NON-PRESSURE CHRONIC ULCER OTH PRT UNSP FOOT W UNSP SEVERITY SNOMED Code(s): 643777588 (3) Peripheral vascular disease Current Visit: Yes Status: Acute Code(s): I73.9 - PERIPHERAL VASCULAR DISEASE, UNSPECIFIED SNOMED Code(s): 492817335
[2022-07-26 11:38] LABS: Glucose,Whole Blood 215 mg/dL (70-110)
[2022-07-26] MEDS: DILTIAZEM 125 MG in SODIUM CHLORIDE 0.9% 100 ML IV SCH (12:03)
[2022-07-26] MEDS ORDERED: fentaNYL (PF) 50 MCG/ML 2 ML AMP ONE (13:43)
[2022-07-26] MEDS ORDERED: LIDOCAINE 1% INJ 10MG/ML (5 ML VIAL-PF) SQ ONE (13:50)
[2022-07-26] MEDS ORDERED: HEPARIN SODIUM 1,000 UN/ML (10ML VL) ONE (13:55)
[2022-07-26] MEDS ORDERED: fentaNYL (PF) 50 MCG/ML 2 ML AMP IV ONE ×2 (13:56)
[2022-07-26] MEDS ORDERED: VERAPAMIL SYRINGE (5 MG/10 ML) INTRAARTER ONE (13:56)
[2022-07-26] MEDS ORDERED: MIDAZOLAM 2 MG/2 ML VIAL IV ONE (13:56)
[2022-07-26] MEDS ORDERED: SODIUM CHLORIDE 0.9% 1,000 ML IV ONE (13:57)
[2022-07-26] MEDS ORDERED: LIDOCAINE 1% INJ 10MG/ML (20 ML MDV) ONE (14:02)
[2022-07-26] MEDS ORDERED: LIDOCAINE 1% INJ 10MG/ML (20 ML MDV) SQ ONE (14:04)
[2022-07-26] MEDS ORDERED: IOPAMIDOL-370 100ML BTL INJ ONE (14:18)
[2022-07-26] MEDS ORDERED: AMIODARONE 360 MG in DEXTROSE 5% IN WATER 200 ML IV ONE ×2 (15:00)
[2022-07-26 16:23] LABS: Glucose,Whole Blood 183 mg/dL (70-110)
[2022-07-26] MEDS: SODIUM CHLORIDE 0.9% 1,000 ML IV SCH (17:24)
[2022-07-26 20:00] LABS: Glucose,Whole Blood 276 mg/dL (70-110)
[2022-07-26] MEDS: AMIODARONE 450 MG in DEXTROSE 5% IN WATER 250 ML IV SCH ×2 (20:50)
--- NOTE | 2022-07-27 00:03 | PN ---
PROGRESS NOTE DATE OF SERVICE: 07/26/2022 SUBJECTIVE: This is a 66-year-old woman who is admitted with significant peripheral vascular disease of the right foot, is awaiting cardiac clearance INR is 1.9. No chest pain. No palpitation. OBJECTIVE: VITAL SIGNS: Pulse is 101, blood pressurentd, respirations 20. CHEST: Clear. CARDIOVASCULAR: S1, S2. ABDOMEN: Soft. MUSCULOSKELETAL: Right foot gangrene present, especially at the big toe. LABORATORY DATA: Labs are reviewed. ASSESSMENT: 1. Atrial fibrillation with fast ventricular rate. 2. Right great toe, fourth and fifth toe gangrenous changes with peripheral vascular disease. 3. Chronic congestive heart failure. 4. Hypertension. 5. Hyperlipidemia. 6. Diabetes mellitus, type 2. 7. Multiple medical issues. RECOMMENDATIONS: Recommend to continue current medications and symptomatic treatment. Otherwise, cardiac catheterization and cardiac clearance and vascular procedure possibly subsequently, prognosis guarded. MMODL / IJN: [id number] / MTDD
[2022-07-27] MEDS: HYDROmorphone 0.5 MG/0.5 ML SYRINGE IVP PRN ×4 (02:02→23:54)
[2022-07-27] MEDS: HYDROcodone/APAP 5-325MG 1 EACH TAB PO PRN ×3 (05:01→21:30)
[2022-07-27 05:52] LABS: Glucose,Whole Blood 122 mg/dL (70-110)
[2022-07-27] MEDS: INSULIN ASPART (NovoLOG) 100 UNIT/ML VIAL SQ SCH ×4 (06:21→21:30)
[2022-07-27] MEDS: INSULIN DETEMIR (LEVEMIR) 100 UNIT/ML SYR SQ SCH ×2 (06:35→21:30)
[2022-07-27 09:18] LABS: Basophils % (A) 0 %; Eosinophils # (A) 0.3 k/uL (0-0.7); Eosinophils % (A) 3 %; HCT 33.8 % (34.0-46.0); HGB 10.9 gm/dL (11.4-16.0); Lymphocytes # (A) 1.9 k/uL (1.0-4.8); Lymphocytes % (A) 18 %; MCH 28.4 pg (25.0-35.0); MCHC 32.4 g/dL (31.0-37.0); MCV 87.7 fL (80.0-100.0); Mean Platelet Volume 8.2; Monocytes # (A) 0.9 k/uL (0-1.0); Monocytes % (A) 9 %; Neutrophils # (A) 7.3 k/uL (1.3-7.7); Neutrophils % (A) 68 %; Platelet Count 263 k/uL (150-450); RBC 3.85 m/uL (3.80-5.40); RDW 13.4 % (11.5-15.5); WBC 10.7 k/uL (3.8-10.6)
[2022-07-27 09:37] LABS: Potassium 3.7 mmol/L (3.5-5.1)
[2022-07-27] MEDS: DILTIAZEM CD 120 MG CAP.ER.24H PO SCH (09:46)
[2022-07-27] MEDS: metFORMIN 500 MG TAB PO SCH ×2 (09:46→21:31)
[2022-07-27] MEDS: ATORVASTATIN 40 MG TAB PO SCH (09:46)
[2022-07-27] MEDS: LOSARTAN 50 MG TAB PO SCH (09:46)
[2022-07-27] MEDS: CLOPIDOGREL 75 MG TAB PO SCH (09:46)
[2022-07-27] MEDS: hydroCHLOROthiazide 12.5 MG CAP PO SCH (09:46)
[2022-07-27] MEDS: METOPROLOL SUCCINATE (ER) 100 MG TAB.ER.24H PO SCH (09:46)
[2022-07-27] MEDS: DULoxetine HCL 30 MG CAPSULE.DR PO SCH (09:46)
[2022-07-27] MEDS: GABAPENTIN 300 MG CAP PO SCH ×3 (09:47→21:31)
--- NOTE | 2022-07-27 10:51 | P.PN ---
Subjective Progress Note Date: 07/27/22 Principal diagnosis: PAD, dry gangrene toes Patient was seen and examined lying in bed. Yesterday she underwent cardiac catheterization, report still pending. Today she denies any shortness of breath or chest pain. Still has some pain in that right foot. Denies any drainage. States she did have some bleeding from the left groin access site from catheter this morning, which he states has now stopped. Objective - Vital Signs Vital signs: Vital Signs Temp 98.2 F 07/27/22 04:30 Pulse 86 07/27/22 04:30 Resp 16 07/27/22 04:30 BP 114/74 07/27/22 04:30 Pulse Ox 95 07/27/22 04:30 FiO2 21 07/26/22 07:52 Intake & Output 07/26/22 07/27/22 07/27/22 18:59 06:59 18:59 Intake Total 1058.24 Output Total 200 Balance 1058.24 -200 Intake: IV 160 Diltiazem 125 mg In 60 Sodium Chloride 0.9% 100 ml @ 5 MG/HR 5 mls/hr IV .Q24H [facility] Rx#:[id number] Intake, IV Titration 898.24 Amount Amiodarone 360 mg In 99.99 Dextrose 5% in Water 200 ml @ 1 MG/MIN 33.333 mls/ hr IV .Q6H [facility] Rx#: [id number] Diltiazem 125 mg In 98.25 Sodium Chloride 0.9% 100 ml @ 5 MG/HR 5 mls/hr IV .Q24H [facility] Rx#:[id number] Sodium Chloride 0.9% 1, 600 000 ml @ 0 mls/hr IV .[facility] Rx#:[id number] ceFAZolin 2 gm In Sodium 100 Chloride 0.9% 50 ml @ 100 mls/hr IVPB Q8HR [facility] Rx# :[id number] Output: Urine 200 Other: Voiding Method Toilet # Voids 1 - Exam General appearance: The patient is alert, oriented, appears in no acute distress. HET: Head is normocephalic and atraumatic. Pupils are equal and reactive. Neck: Supple. Heart: Irregular rate and rhythm. Lungs: Equal expansion, normal respiratory effort. Abdomen: Soft, nontender, nondistended. Extremities: Bilateral lower extremities warm to the touch. Right foot with petechiae like discoloration, great toe, fourth and fifth toes with dry gangrene. Neurological: No focal deficits. Alert and oriented. - Labs CBC & Chem 7: 07/27/22 07:14 07/27/22 07:14 Labs: Abnormal Lab Results - Last 24 Hours (Table) 07/26/22 07/26/22 07/26/22 Range/Units 11:36 16:21 19:56 WBC (3.8-10.6) k/uL Hgb (11.4-16.0) gm/dL Hct (34.0-46.0) % POC Glucose (mg/dL) 215 H 183 H 276 H (70-110) mg/dL 07/27/22 07/27/22 Range/Units 05:51 07:14 WBC 10.7 H (3.8-10.6) k/uL Hgb 10.9 L (11.4-16.0) gm/dL Hct 33.8 L (34.0-46.0) % POC Glucose (mg/dL) 122 H (70-110) mg/dL Microbiology - Last 24 Hours (Table) 07/23/22 13:47 Blood Culture - Preliminary Blood Assessment and Plan Assessment: 1. Dry Gangrene toes right foot 2. Peripheral arterial disease currently on Plavix 3. Rapid atrial fibrillation 4. Echocardiogram with EF 35-40% 5. Supratherapeutic INR 6. Previous revascularization of right lower extremity 7. Diabetes mellitus 8. History atrial fibrillation on coumadin 9. History hypertension Plan: 1. Local wound care per recommendations from wound care clinic 2. Cardiology on consult, appreciate cardiac clearance for possible right lower extremity TMA versus below the knee amputation 3. Continue medical management 4. Due to ongoing cardiac issues, will plan for outpatient TMA versus BKA. This was discussed with both patient and daughter over the phone. Will need to be off Plavix 5 days prior to procedure, to avoid general anesthesia. Thank you for this consultation, we will continue to follow. The impression and plan of care has been dictated as directed. Dr. Reina I performed a history and examination of this patient, discussed the same with the dictator. I agree with the dictator's note ,documented as a scribe. Any additional findings or plans will be noted.
[2022-07-27 12:02] LABS: Glucose,Whole Blood 102 mg/dL (70-110)
[2022-07-27 13:55] LABS: Glucose,Whole Blood 89 mg/dL (70-110)
[2022-07-27] MEDS: AMIODARONE 450 MG in DEXTROSE 5% IN WATER 250 ML IV SCH ×2 (15:28)
[2022-07-27 16:45] LABS: Glucose,Whole Blood 139 mg/dL (70-110)
--- NOTE | 2022-07-27 17:02 | P.CARDCATH ---
Date of Procedure: 07/26/22 Description of Procedure: PROCEDURES PERFORMED: Left heart catheterization, bilateral coronary angiography INDICATION: Cardiomyopathy CONSENT:I have discussed the risks, benefits and alternative therapies for the above-mentioned procedure and for both sedation/analgesia as well as necessary blood product administration, if indicated, as they pertain to this patient. The patient has indicated understanding and acceptance of the risks and procedures discussed. PROCEDURE: After the risks, benefits and alternatives of the above mentioned procedure explained in detail with the patient, informed consent was obtained. Patient was taken to the catheterization lab and prepped and draped in usual fashion. 1% lidocaine was used to anesthetize the right radial artery. A 6- [place] sheath was placed in the right radial artery using modified Seldinger technique. Left coronary angiography was performed with a 5-[place] JL 3.5 catheter and right coronary angiography was performed with a 5-[place] JR5 catheter in various views. A 5-[place] FR5 catheter was inserted into the left ventricle and pressure measurements were obtained. The right radial sheath was removed and a TR band was placed with hemostasis achieved. The patient tolerated the procedure well. Patient was transported back to the post ca theterization holding area in stable condition. Conscious Sedation: Patient was monitored under the direct supervision of myself for conscious sedation using Versed and fentanyl for a total duration of 31 minutes HEMODYNAMICS: Aortic: 126/72 LV: 128/5, LVEDP 17 SELECTIVE CORONARY ARTERIOGRAPHY: LEFT MAIN: The left main is a large caliber vessel which bifurcates into the LAD and circumflex. There is no significant stenosis. LEFT ANTERIOR DESCENDING CORONARY ARTERY: LAD is a large caliber vessel which wraps around to the apex. There are mild luminal irregularities of LAD and 2 small caliber diagonal 1 and diagonal 2 vessels with 90 and 80% proximal diagonal stenosis respectively. LEFT CIRCUMFLEX CORONARY ARTERY: Left circumflex is a moderate caliber vessel mid circumflex 40% stenosis and otherwise mild luminal irregularities. RIGHT CORONARY ARTERY: The right coronary artery is a large caliber vessel which gives off a PDA and PLV branch and is the dominant vessel. There is diffuse proximal mid RCA 30-40% stenosis. FINAL IMPRESSION: 1. Mild CAD as described above including 30-40% RCA, 40% mid circumflex and 90% diagonal 1 and 80% diagonal 2 stenoses. 2. High normal left sided filling pressures PLAN: 1. Aggressive risk factor modification per most recent ACC/AHA guidelines. 2. Recommend medical therapy for small caliber ostial diagonal stenoses with otherwise mild CAD.
[2022-07-27] MEDS: SODIUM CHLORIDE 0.9% 1,000 ML IV SCH (17:33)
--- NOTE | 2022-07-27 19:21 | P.PN ---
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 She reports significant family history of mother with a stroke and father with an TN at age of 84. She follows with Dr. Menchaca cardiology reports she had an echocardiogram approximately 3 months ago and was told her EF was 35%. She was found to be in A. fib with RVR and cardiology was consulted and she was started on a diltiazem drip. Patient was evaluated by vascular surgery, patient is to undergo possible right lower extremity TMA versus BKA and surgery is requesting cardiac clearance. Patient reports feeling a little better today, denies any chest pain, mild shortness of breath. She is able to walk around at home but overall her activities are limited due to pain in her right foot. Labs reviewed: Troponin negative 1, TSH normal, INR was 4.8 on admission, WBC 14.5, hemoglobin 13.2, platelet 302, creatinine 0.8, potassium 4.7, magnesium 1.3. She does report that she saw her cardiology recently and was to the ED but she did not go at that time. Denies any history of cardioversion or ablation. 07/25 A/Ox3, denies any chest pain or pressure. Reports surgery may be the end of this week. 07/26 Heart Cath showed: Mild CAD as described above including 30-40% RCA, 40% mid circumflex and 90% diagonal 1 and 80% diagonal 2 stenoses. Echocardiogram shows ejection fraction 3540%, moderate mitral regurgitation. 07/27 Pt is doing well, denies any chest pain or shortness of breath. She reports her left groin site was bleeding briefly overnight, no hematoma on exam. Hgb 10.9, creat 0.85. HR is better controlled 80-90's. Pt reports her surgery will be done as an outpatient. PHYSICAL EXAMINATION: This is a 66-year-old female in no apparent distress at the time of my examination. HEENT: Head is atraumatic, normocephalic. Pupils are equal, round. Sclerae anicteric. Conjunctivae are clear. Mucous membranes of the mouth are moist. Neck is supple. There is no jugular venous distention. No carotid bruit is heard. CHEST EXAMINATION: Lungs are clear to auscultation. No chest wall tenderness is noted on palpation or with deep breathing. HEART EXAMINATION: Irregular rate and rhythm. S1, S2 heard. No murmurs, gallops or rub. ABDOMEN: Soft, nontender. Bowel sounds are heard. EXTREMITIES: Right foot with black first, fourth, fifth digits, pulses are palpable, foot is warm. Left groin site is soft, no mass or hematoma palpable, to active bleeding or ozzing, distal pulses present. NEUROLOGIC EXAMINATION: Patient is awake, alert and oriented x3. IMPRESSION AND PLAN: Atrial fibrillation Diabetes type 2 Hypertension Chronic wound of right foot Supratherapeutic INR, 4.8 on warfarin Preoperative cardiology exam PLAN: Transition amiodarone to oral taper: 400mg PO BID x1 week, then 200mg PO BID x1 week, then continue with 200mg PO daily. Resume coumadin, she was instructed to monitor her INR while on amiodarone. DC cardizem. Continue metoprolol. OK to discharge home from cardiology standpoint. I am dictating on behalf of Dr. Quinten Lanier's history/physical and asse ssment/plan. Objective - Vital Signs Vital signs: Vital Signs Temp 98.4 F 07/27/22 17:00 Pulse 76 07/27/22 17:00 Resp 18 07/27/22 17:00 BP 116/69 07/27/22 17:00 Pulse Ox 98 07/27/22 17:00 FiO2 21 07/26/22 07:52 Intake & Output 07/27/22 07/27/22 07/28/22 06:59 18:59 06:59 Intake Total 540 100 Output Total 200 Balance -200 540 100 Intake: Intake, IV Titration 100 100 Amount ceFAZolin 2 gm In Sodium 100 100 Chloride 0.9% 50 ml @ 100 mls/hr IVPB Q8HR [facility] Rx# :[id number] Oral 440 Output: Urine 200 Other: Voiding Method Toilet Toilet # Voids 0 1 # Bowel Movements 0 - Labs CBC & Chem 7: 07/27/22 07:14 07/27/22 07:14 Labs: Abnormal Lab Results - Last 24 Hours (Table) 07/26/22 07/27/22 07/27/22 Range/Units 19:56 05:51 07:14 WBC 10.7 H (3.8-10.6) k/uL Hgb 10.9 L (11.4-16.0) gm/dL Hct 33.8 L (34.0-46.0) % Glucose (74-99) mg/dL POC Glucose (mg/dL) 276 H 122 H (70-110) mg/dL 07/27/22 07/27/22 Range/Units 07:14 16:42 WBC (3.8-10.6) k/uL Hgb (11.4-16.0) gm/dL Hct (34.0-46.0) % Glucose 103 H (74-99) mg/dL POC Glucose (mg/dL) 139 H (70-110) mg/dL Microbiology - Last 24 Hours (Table) 07/23/22 13:47 Blood Culture - Preliminary Blood
[2022-07-27 19:59] LABS: Glucose,Whole Blood 154 mg/dL (70-110)
[2022-07-27] MEDS ORDERED: WARFARIN 2 MG TAB PO ONE (21:00)
[2022-07-27 21:01] LABS: INR 1.4 (<1.2); Prothrombin Time 13.8 sec (9.0-12.0)
[2022-07-27] MEDS: AMIODARONE 200 MG TAB PO SCH (21:31)
[2022-07-28] MEDS: HYDROcodone/APAP 5-325MG 1 EACH TAB PO PRN ×3 (04:31→21:59)
[2022-07-28 06:11] LABS: Glucose,Whole Blood 109 mg/dL (70-110)
[2022-07-28] MEDS: INSULIN ASPART (NovoLOG) 100 UNIT/ML VIAL SQ SCH ×4 (06:22→20:56)
[2022-07-28] MEDS: INSULIN DETEMIR (LEVEMIR) 100 UNIT/ML SYR SQ SCH ×2 (06:54→20:56)
[2022-07-28 08:04] VITALS: BMI 29.1
[2022-07-28] MEDS: ATORVASTATIN 40 MG TAB PO SCH (08:46)
[2022-07-28] MEDS: metFORMIN 500 MG TAB PO SCH ×2 (08:46→20:57)
[2022-07-28] MEDS: DULoxetine HCL 30 MG CAPSULE.DR PO SCH (08:46)
[2022-07-28] MEDS: CLOPIDOGREL 75 MG TAB PO SCH (08:46)
[2022-07-28] MEDS: LOSARTAN 50 MG TAB PO SCH (08:46)
[2022-07-28] MEDS: HYDROmorphone 0.5 MG/0.5 ML SYRINGE IVP PRN ×3 (08:46→20:57)
[2022-07-28] MEDS: hydroCHLOROthiazide 12.5 MG CAP PO SCH (08:46)
[2022-07-28] MEDS: GABAPENTIN 300 MG CAP PO SCH ×3 (08:47→21:00)
[2022-07-28] MEDS: METOPROLOL SUCCINATE (ER) 100 MG TAB.ER.24H PO SCH (08:47)
[2022-07-28] MEDS: AMIODARONE 200 MG TAB PO SCH ×2 (08:47→20:57)
--- NOTE | 2022-07-28 09:17 | P.PN ---
Subjective Progress Note Date: 07/28/22 Patient seen and examined. No complaints. Still not certain if she wants undergo distal transmetatarsal or below-knee amputation. Long discussion had. No plans for intervention this admission. We will await further outpatient workup. The foot itself appears to be dry gangrene. No evidence of wet ga ngrene or infection at this time. We'll continue local wound care. Objective - Vital Signs Vital signs: Vital Signs Temp 97.4 F L 07/28/22 08:00 Pulse 130 H 07/28/22 08:00 Resp 14 07/28/22 08:00 BP 132/88 07/28/22 08:00 Pulse Ox 97 07/28/22 08:00 FiO2 21 07/26/22 07:52 Intake & Output 07/27/22 07/28/22 07/28/22 18:59 06:59 18:59 Intake Total 540 190 540 Balance 540 190 540 Weight 87 kg 87 kg Intake: IV 90 Invasive Line 2 80 Invasive Line 3 10 Intake, IV Titration 100 100 Amount ceFAZolin 2 gm In Sodium 100 100 Chloride 0.9% 50 ml @ 100 mls/hr IVPB Q8HR [facility] Rx# :[id number] Oral 440 540 Other: Voiding Method Toilet Toilet # Voids 0 1 # Bowel Movements 0 - Exam No acute distress resting comfortably. Right lower extremity with toes of dry gangrene as previous. - Labs CBC & Chem 7: 07/27/22 07:14 07/27/22 07:14 Labs: Abnormal Lab Results - Last 24 Hours (Table) 07/27/22 07/27/22 07/27/22 Range/Units 07:14 07:14 16:42 WBC 10.7 H (3.8-10.6) k/uL Hgb 10.9 L (11.4-16.0) gm/dL Hct 33.8 L (34.0-46.0) % PT (9.0-12.0) sec INR (<1.2) Glucose 103 H (74-99) mg/dL POC Glucose (mg/dL) 139 H (70-110) mg/dL 07/27/22 07/27/22 Range/Units 19:33 19:57 WBC (3.8-10.6) k/uL Hgb (11.4-16.0) gm/dL Hct (34.0-46.0) % PT 13.8 H (9.0-12.0) sec INR 1.4 H (<1.2) Glucose (74-99) mg/dL POC Glucose (mg/dL) 154 H (70-110) mg/dL Microbiology - Last 24 Hours (Table) 07/23/22 13:47 Blood Culture - Preliminary Blood Assessment and Plan Assessment: Right lower extremity peripheral vascular disease Elda 5 with toe gangrene Plan: Plan for outpatient follow-up. Patient will need either TMA or below-knee amputation. We discussed the difficulty in a TMA due to the extent of the necro tic tissue however she does think she would like to go forward with this and continue with wound care to try to get this to heal. Continue medications. Continue cardiac follow-up workup.
--- NOTE | 2022-07-28 09:40 | PN ---
PROGRESS NOTE DATE OF SERVICE: 07/27/2022 SUBJECTIVE: This 66-year-old woman was admitted with right foot gangrene, had cardiac catheterization. No chest pain. No palpitation. OBJECTIVE: VITAL SIGNS: Pulse 75, blood pressure ntd, respirations 18. CHEST: Clear to auscultation. CARDIOVASCULAR: S1, S2 muffled. ABDOMEN: Soft. EXTREMITIES: Right leg gangrene present. LABORATORY DATA: Reviewed. ASSESSMENT: 1. Atrial fibrillation with fast ventricular rate. 2. Right great toe, fourth and fifth toe gangrenous changes with peripheral vascular disease. 3. Congestive heart failure history. 4. Hypertension. 5. Hyperlipidemia. 6. Diabetes mellitus type 2. 7. Multiple medical issues. RECOMMENDATIONS: Continue current medications and symptomatic treatment. Closely follow with Cardiology and Vascular Surgery. We will repeat labs tomorrow. Further recommendations to follow. JAMIEL / HEIDIN: [id number] / MTDD
[2022-07-28 10:24] LABS: Basophils % (A) 0 %; Eosinophils # (A) 0.4 k/uL (0-0.7); Eosinophils % (A) 4 %; HCT 33.1 % (34.0-46.0); HGB 10.7 gm/dL (11.4-16.0); Lymphocytes # (A) 1.3 k/uL (1.0-4.8); Lymphocytes % (A) 13 %; MCH 29.2 pg (25.0-35.0); MCHC 32.5 g/dL (31.0-37.0); Mean Platelet Volume 8.5; Monocytes # (A) 0.9 k/uL (0-1.0); Monocytes % (A) 8 %; Neutrophils # (A) 7.5 k/uL (1.3-7.7); Neutrophils % (A) 73 %; Platelet Count 252 k/uL (150-450); RBC 3.68 m/uL (3.80-5.40); WBC 10.4 k/uL (3.8-10.6)
[2022-07-28 10:36] LABS: Calcium 8.5 mg/dL (8.4-10.2); Potassium 3.8 mmol/L (3.5-5.1)
[2022-07-28 10:59] LABS: Glucose,Whole Blood 142 mg/dL (70-110)
[2022-07-28 11:06] LABS: INR 1.2 (<1.2); Prothrombin Time 12.7 sec (9.0-12.0)
[2022-07-28] MEDS: FUROSEMIDE 10 MG/ML 2 ML VIAL IV SCH (15:03)
[2022-07-28 16:20] LABS: Glucose,Whole Blood 139 mg/dL (70-110)
--- NOTE | 2022-07-28 16:28 | US ---
EXAMINATION TYPE: US venous doppler duplex LE BI DATE OF EXAM: 07/28/2022 1:23 PM Exam done portable COMPARISON: NONE CLINICAL INDICATION: Female, 66 years old with history of swelling lower extremity pain; SIDE PERFORMED: Bilateral TECHNIQUE: The lower extremity deep venous system is examined utilizing real time linear array sonog akil with graded compression, doppler sonography and color-flow sonography. VESSELS IMAGED: Common Femoral Vein Deep Femoral Vein Greater Saphenous Vein * Femoral Vein Popliteal Vein Small Saphenous Vein * Proximal Calf Veins (* superficial vessels) Right Leg: Appears negative for DVT Left Leg: Appears negative for DVT IMPRESSION: No evidence for DVT within the bilateral lower extremities imaged from the groin to the upper calf.
--- NOTE | 2022-07-28 16:46 | P.PN ---
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 She reports significant family history of mother with a stroke and father with an SD at age of 84. She follows with Dr. Menchaca cardiology reports she had an echocardiogram approximately 3 months ago and was told her EF was 35%. She was found to be in A. fib with RVR and cardiology was consulted and she was started on a diltiazem drip. Patient was evaluated by vascular surgery, patient is to undergo possible right lower extremity TMA versus BKA and surgery is requesting cardiac clearance. Patient reports feeling a little better today, denies any chest pain, mild shortness of breath. She is able to walk around at home but overall her activities are limited due to pain in her right foot. Labs reviewed: Troponin negative 1, TSH normal, INR was 4.8 on admission, WBC 14.5, hemoglobin 13.2, platelet 302, creatinine 0.8, potassium 4.7, magnesium 1.3. She does report that she saw her cardiology recently and was to the ED but she did not go at that time. Denies any history of cardioversion or ablation. 07/25 A/Ox3, denies any chest pain or pressure. Reports surgery may be the end of this week. 07/26 Heart Cath showed: Mild CAD as described above including 30-40% RCA, 40% mid circumflex and 90% diagonal 1 and 80% diagonal 2 stenoses. Echocardiogram shows ejection fraction 3540%, moderate mitral regurgitation. 07/27 Pt is doing well, denies any chest pain or shortness of breath. She reports her left groin site was bleeding briefly overnight, no hematoma on exam. Hgb 10.9, creat 0.85. HR is better controlled 80-90's. Pt reports her surgery will be done as an outpatient. 07/28 Pt reports severe pain in right foot 8/10, occasionally dizzy. Denies any chest pain or shortness of breath. HR better controlled. PHYSICAL EXAMINATION: This is a 66-year-old female in no apparent distress at the time of my examination. HEENT: Head is atraumatic, normocephalic. Pupils are equal, round. Sclerae anicteric. Conjunctivae are clear. Mucous membranes of the mouth are moist. Neck is supple. There is no jugular venous distention. No carotid bruit is heard. CHEST EXAMINATION: Lungs are clear to auscultation. No chest wall tenderness is noted on palpation or with deep breathing. HEART EXAMINATION: Irregular rate and rhythm. S1, S2 heard. No murmurs, gallops or rub. ABDOMEN: Soft, nontender. Bowel sounds are heard. EXTREMITIES: Right foot with black first, fourth, fifth digits, pulses are palpable, foot is warm. Left groin site is soft, no mass or hematoma palpable, to active bleeding or ozzing, distal pulses present. NEUROLOGIC EXAMINATION: Patient is awake, alert and oriented x3. IMPRESSION AND PLAN: Atrial fibrillation Diabetes type 2 Hypertension Chronic wound of right foot Supratherapeutic INR, 4.8 on warfarin Preoperative cardiology exam PLAN: Continue amiodarone to oral taper: 400mg PO BID x1 week, then 200mg PO BID x1 week, then continue with 200mg PO daily. Continue coumadin, she was instructed to monitor her INR while on amiodarone. Continue metoprolol. OK to discharge home from cardiology standpoint. Cardiology to sign off. Please call with any questions. Follow up with her staff nurse in 1 week. I am dictating on behalf of Dr. Quinten Lanier's history/physical and assessment/plan. Objective - Vital Signs Vital signs: Vital Signs Temp 98.1 F 07/28/22 15:02 Pulse 105 H 07/28/22 15:02 Resp 14 07/28/22 15:02 BP 111/66 07/28/22 15:02 Pulse Ox 97 07/28/22 15:02 FiO2 21 07/26/22 07:52 Intake & Output 07/27/22 07/28/22 07/28/22 18:59 06:59 18:59 Intake Total 540 190 930 Balance 540 190 930 Weight 87 kg 87 kg Intake: IV 90 Invasive Line 2 80 Invasive Line 3 10 Intake, IV Titration 100 100 210 Amount Sodium Chloride 0.9% 1, 160 000 ml @ 0 mls/hr IV .[facility] Rx#:[id number] ceFAZolin 2 gm In Sodium 100 100 50 Chloride 0.9% 50 ml @ 100 mls/hr IVPB Q8HR [facility] Rx# :[id number] Oral 440 720 Other: Voiding Method Toilet Toilet Toilet # Voids 0 1 # Bowel Movements 0 - Labs CBC & Chem 7: 07/28/22 07:12 07/28/22 07:12 Labs: Abnormal Lab Results - Last 24 Hours (Table) 07/27/22 07/27/22 07/27/22 Range/Units 16:42 19:33 19:57 RBC (3.80-5.40) m/uL Hgb (11.4-16.0) gm/dL Hct (34.0-46.0) % PT 13.8 H (9.0-12.0) sec INR 1.4 H (<1.2) BUN (7-17) mg/dL Glucose (74-99) mg/dL POC Glucose (mg/dL) 139 H 154 H (70-110) mg/dL 07/28/22 07/28/22 07/28/22 Range/Units 07:12 07:12 07:12 RBC 3.68 L (3.80-5.40) m/uL Hgb 10.7 L (11.4-16.0) gm/dL Hct 33.1 L (34.0-46.0) % PT 12.7 H (9.0-12.0) sec INR 1.2 H (<1.2) BUN 24 H (7-17) mg/dL Glucose 131 H (74-99) mg/dL POC Glucose (mg/dL) (70-110) mg/dL 07/28/22 07/28/22 Range/Units 10:58 16:18 RBC (3.80-5.40) m/uL Hgb (11.4-16.0) gm/dL Hct (34.0-46.0) % PT (9.0-12.0) sec INR (<1.2) BUN (7-17) mg/dL Glucose (74-99) mg/dL POC Glucose (mg/dL) 142 H 139 H (70-110) mg/dL Microbiology - Last 24 Hours (Table) 07/23/22 13:47 Blood Culture - Preliminary Blood
[2022-07-28] MEDS ORDERED: WARFARIN 5 MG TAB PO ONE (18:00)
[2022-07-28 20:11] LABS: Glucose,Whole Blood 233 mg/dL (70-110)
[2022-07-29] MEDS: HYDROmorphone 0.5 MG/0.5 ML SYRINGE IVP PRN ×3 (04:19→19:03)
[2022-07-29] MEDS: HYDROcodone/APAP 5-325MG 1 EACH TAB PO PRN ×4 (04:45→20:41)
[2022-07-29 05:51] LABS: Glucose,Whole Blood 109 mg/dL (70-110)
--- NOTE | 2022-07-29 06:01 | PN ---
PROGRESS NOTE DATE OF SERVICE: 07/28/2022 SUBJECTIVE: This is a 66-year-old woman who was admitted with atrial fibrillation, fast ventricular rate, also had significant gangrene. Cardiac catheterization done yesterday by Cardiology showed mild CAD. Vascular surgery saw the patient, recommend outpatient followup. The patient is complaining of severe gangrene. The plan is TMA or below- knee amputation as an outpatient. OBJECTIVE: VITAL SIGNS: Pulse is 95, blood pressure 135/85, respirations 12. CHEST: Clear to auscultation. CARDIOVASCULAR: S1, S2. ABDOMEN: Soft. LEGS: Right leg gangrene present. LABORATORY DATA: Reviewed. ASSESSMENT: 1. Atrial ablation with fast ventricular rate. 2. Status post cardiac catheterization showing only mild coronary artery disease. 3. Right great toe fourth and fifth gangrenous changes with peripheral vascular disease for outpatient followup. 4. Severe pain of the right leg. 5. CHF history. 6. Multiple medical issues. RECOMMENDATIONS AND DISCUSSION: This 66-year-old woman presented with multiple complex medical issues. At this time, I recommend to continue the current medications management, continue symptomatic treatment and pain management. Otherwise, closely follow with multiple consultants. Continue the antiplatelet agents. Prognosis guarded. Further recommendations to follow. See orders for details. MMODL / IJN: [id number] /
[2022-07-29] MEDS: INSULIN ASPART (NovoLOG) 100 UNIT/ML VIAL SQ SCH ×4 (06:22→21:11)
[2022-07-29] MEDS: INSULIN DETEMIR (LEVEMIR) 100 UNIT/ML SYR SQ SCH ×2 (06:59→20:42)
[2022-07-29 08:29] LABS: INR 1.5 (<1.2); Prothrombin Time 14.9 sec (9.0-12.0)
[2022-07-29] MEDS: DULoxetine HCL 30 MG CAPSULE.DR PO SCH (08:46)
[2022-07-29] MEDS: hydroCHLOROthiazide 12.5 MG CAP PO SCH (08:55)
[2022-07-29] MEDS: metFORMIN 500 MG TAB PO SCH ×2 (08:55→20:40)
[2022-07-29] MEDS: AMIODARONE 200 MG TAB PO SCH ×2 (08:55→20:41)
[2022-07-29] MEDS: FUROSEMIDE 10 MG/ML 2 ML VIAL IV SCH (08:55)
[2022-07-29] MEDS: CLOPIDOGREL 75 MG TAB PO SCH (08:56)
[2022-07-29] MEDS: METOPROLOL SUCCINATE (ER) 100 MG TAB.ER.24H PO SCH (08:56)
[2022-07-29] MEDS: ATORVASTATIN 40 MG TAB PO SCH (08:56)
[2022-07-29] MEDS: GABAPENTIN 300 MG CAP PO SCH ×3 (08:56→21:14)
[2022-07-29] MEDS: LOSARTAN 50 MG TAB PO SCH (08:56)
[2022-07-29 11:39] LABS: Glucose,Whole Blood 157 mg/dL (70-110)
[2022-07-29 16:38] LABS: Glucose,Whole Blood 132 mg/dL (70-110)
[2022-07-29] MEDS ORDERED: WARFARIN 5 MG TAB PO ONE (18:00)
--- NOTE | 2022-07-29 20:24 | P.PN ---
Progress Note - Text Progress Note Date: 07/29/22 Hospital course: Patient admitted with atrial fibrillation with a rapid ventricular rate. Also has gangrene. Of the foot. Cardiac catheterization showed mild CAD. July 2018: I assumed care of the patient from [facility] Hospitalist today. Laying in bed. Some pain in the right foot. Eating fair. No nausea vomiting. Discussed with the patient. Patient to continue with Coumadin. Add Aldactone. Possible DC tomorrow. Active Medications Acetaminophen (Acetaminophen Tab 500 Mg Tab) 1,000 mg PO Q6HR PRN PRN Reason: Pain or Fever > 100.5 Hydrocodone Bitart/Acetaminophen (Hydrocodone/Apap 5-325mg 1 Each Tab) 1 each PO Q4HR PRN PRN Reason: Pain Last Admin: 07/29/22 15:40 Dose: 1 each Amiodarone HCl (Amiodarone 200 Mg Tab) 400 mg PO BID [facility] Last Admin: 07/29/22 08:55 Dose: 400 mg Atorvastatin Calcium (Atorvastatin 40 Mg Tab) 40 mg PO DAILY [facility] Last Admin: 07/29/22 08:56 Dose: 40 mg Clopidogrel Bisulfate (Clopidogrel 75 Mg Tab) 75 mg PO DAILY [facility] Last Admin: 07/29/22 08:56 Dose: 75 mg Dextrose/Water (Dextrose 50% Syringe 50 Ml) 25 ml IVP PER PROTOCOL PRN; Protocol PRN Reason: Hypoglycemia Dextrose/Water (Dextrose 50% Syringe 50 Ml) 50 ml IVP PER PROTOCOL PRN; Protocol PRN Reason: Hypoglycemia Duloxetine HCl (Duloxetine Hcl 30 Mg Capsule.Dr) 30 mg PO DAILY [facility] Last Admin: 07/29/22 08:46 Dose: Not Given Furosemide (Furosemide 10 Mg/Ml 2 Ml Vial) 20 mg IV DAILY [facility] Last Admin: 07/29/22 08:55 Dose: 20 mg Gabapentin (Gabapentin 300 Mg Cap) 300 mg PO TID [facility] Last Admin: 07/29/22 15:40 Dose: 300 mg Hydrochlorothiazide (Hydrochlorothiazide 12.5 Mg Cap) 12.5 mg PO DAILY [facility] Last Admin: 07/29/22 08:55 Dose: 12.5 mg Hydromorphone HCl (Hydromorphone 0.5 Mg/0.5 Ml Syringe) 0.5 mg IVP Q6HR PRN PRN Reason: Severe Pain (Scale 7 to 10) Last Admin: 07/29/22 19:03 Dose: 0.5 mg Cefazolin Sodium 2 gm/ Sodium (Chloride) 50 mls @ 100 mls/hr IVPB Q8HR [facility]; Protocol Last Admin: 07/29/22 15:40 Dose: 100 mls/hr Insulin Aspart (Insulin Aspart (Novolog) 100 Unit/Ml Vial) 0 unit SQ ACHS [facility]; Protocol Last Admin: 07/29/22 17:06 Dose: Not Given Insulin Detemir (Insulin Detemir (Levemir) 100 Unit/Ml Syr) 15 unit SQ BID@0700,2100 [facility] Last Admin: 07/29/22 06:59 Dose: 15 unit Losartan Potassium (Losartan 50 Mg Tab) 100 mg PO DAILY [facility] Last Admin: 07/29/22 08:56 Dose: 100 mg Melatonin (Melatonin 3 Mg Tablet) 3 mg PO HS PRN PRN Reason: Insomnia Last Admin: 07/24/22 23:11 Dose: 3 mg Metformin HCl (Metformin 500 Mg Tab) 1,000 mg PO BID [facility] Last Admin: 07/29/22 08:55 Dose: 1,000 mg Metoprolol Succinate (Metoprolol Succinate (Er) 100 Mg Tab.Er.24h) 100 mg PO DAILY [facility] Last Admin: 07/29/22 08:56 Dose: 100 mg Miscellaneous Information (Warfarin Per Pharmacy) 1 each MISCELLANE DIRECTED PRN; Protocol PRN Reason: Per Protocol Naloxone HCl (Naloxone 0.4 Mg/Ml 1 Ml Vial) 0.2 mg IV Q2M PRN PRN Reason: Opioid Reversal Ondansetron HCl (Ondansetron 4 Mg/2 Ml Vial) 4 mg IVP Q8HR PRN PRN Reason: Nausea And Vomiting On examination: VITAL SIGNS: [97.5, 110, 16, 140/68, 98% room air] GENERAL APPEARANCE: Reclining in bed, awake not in distress HEENT: Normal external appearance of nose and ear. Oral cavity normal EYES: Pupils equal. Conjunctiva normal. NECK: JVD not raised. Mass not palpable. RESPIRATORY: Respiratory effort normal. Lungs clear to auscultation. CARDIOVASCULAR: First and second sounds normal. No edema. ABDOMEN: Soft. Liver and spleen not palpable. No tenderness. No mass palpable. PSYCHIATRY: Alert and oriented x3. Mood and affect normal. Right lower extremity: Dry gangrene of the first fourth and fifth toe. No swelling of the second and third toe. Bilateral PT and DP Doppler signals present. INVESTIGATIONS, reviewed in the clinical context: July 28: White count 10.4 hemoglobin 10.7 platelets 252 potassium 3.8 creatinine 0.80 Venous Doppler: Bilateral negative for DVT Cardiac catheterization: [July 28]: Mild CAD with 30-40% RCA, 40% mid circumflex, 80% diagonal 1 and 80% diagonal 2 stenosis. 2-D echocardiogram: EF 35-40%. [id number] MR. Assessment and plan: -Right foot with a 4-5 with toe gangrene Being followed by Dr. Reina. For outpatient follow-up for possible T and A or below-knee amputation. -Probable right foot cellulitis secondary to gangrene IV Ancef. Check pro calcitonin -Peripheral arterial disease Coumadin. Plavix. -Diabetes mellitus type 2, chronically on insulin Levemir. Follow Accu-Cheks -Persistent atrial fibrillation, rate from 100 Amiodarone taper. Coumadin. Metoprolol. -Hyperlipidemia -Essential hypertension -Chronic congestive heart failure from systolic dysfunction EF 35-40%. Toprol-XL. Cozaar. Add Aldactone. -Mild to moderate MR - Mild CAD with 30-40% RCA, 40% mid circumflex, 80% diagonal 1 and 80% diagonal 2 stenosis. Aspirin, Lipitor. Lopressor
[2022-07-29 21:13] LABS: Glucose,Whole Blood 137 mg/dL (70-110)
[2022-07-30] MEDS: HYDROmorphone 0.5 MG/0.5 ML SYRINGE IVP PRN ×3 (01:26→18:32)
[2022-07-30] MEDS: HYDROcodone/APAP 5-325MG 1 EACH TAB PO PRN ×3 (02:25→21:06)
[2022-07-30 06:27] LABS: Glucose,Whole Blood 115 mg/dL (70-110)
[2022-07-30] MEDS: INSULIN ASPART (NovoLOG) 100 UNIT/ML VIAL SQ SCH ×4 (06:34→21:12)
[2022-07-30] MEDS: INSULIN DETEMIR (LEVEMIR) 100 UNIT/ML SYR SQ SCH ×2 (06:38→21:07)
[2022-07-30] MEDS: GABAPENTIN 300 MG CAP PO SCH ×3 (08:08→21:06)
[2022-07-30] MEDS: CLOPIDOGREL 75 MG TAB PO SCH (08:08)
[2022-07-30] MEDS: ATORVASTATIN 40 MG TAB PO SCH (08:08)
[2022-07-30] MEDS: hydroCHLOROthiazide 12.5 MG CAP PO SCH (08:08)
[2022-07-30] MEDS: METOPROLOL SUCCINATE (ER) 100 MG TAB.ER.24H PO SCH (08:08)
[2022-07-30] MEDS: DULoxetine HCL 30 MG CAPSULE.DR PO SCH (08:08)
[2022-07-30] MEDS: LOSARTAN 50 MG TAB PO SCH (08:08)
[2022-07-30] MEDS: SPIRONOLACTONE 25 MG TAB PO SCH (08:08)
[2022-07-30] MEDS: metFORMIN 500 MG TAB PO SCH ×2 (08:08→21:06)
[2022-07-30] MEDS: FUROSEMIDE 10 MG/ML 2 ML VIAL IV SCH (08:08)
[2022-07-30] MEDS: AMIODARONE 200 MG TAB PO SCH ×2 (08:09→21:06)
[2022-07-30 09:04] LABS: INR 1.7 (<1.2); Prothrombin Time 16.7 sec (9.0-12.0)
[2022-07-30 11:39] LABS: Glucose,Whole Blood 148 mg/dL (70-110)
--- NOTE | 2022-07-30 12:47 | P.PN ---
Subjective Progress Note Date: 07/30/22 Principal diagnosis: right foot gangrene patient seen and examined. Right foot dry gangrene stable. Complaining of some pain and swelling at the foot. States she is going home today. Objective - Vital Signs Vital signs: Vital Signs Temp 98.1 F 07/30/22 11:38 Pulse 102 H 07/30/22 11:38 Resp 18 07/30/22 11:38 BP 129/85 07/30/22 11:38 Pulse Ox 98 07/30/22 11:38 FiO2 21 07/26/22 07:52 Intake & Output 07/29/22 07/30/22 07/30/22 18:59 06:59 18:59 Intake Total 1340 240 180 Balance 1340 240 180 Intake: Intake, IV Titration 50 Amount ceFAZolin 2 gm In Sodium 50 Chloride 0.9% 50 ml @ 100 mls/hr IVPB Q8HR [facility] Rx# :[id number] Oral 1290 240 180 Other: Voiding Method Toilet Toilet # Voids 1 - Exam right foot dry gangrene of the great toe and 4th and 5th toes. 1+ edema right foot, tender to palpation - Labs CBC & Chem 7: 07/28/22 07:12 07/28/22 07:12 Labs: Abnormal Lab Results - Last 24 Hours (Table) 07/29/22 07/29/22 07/30/22 Range/Units 16:36 21:09 06:26 PT (9.0-12.0) sec INR (<1.2) POC Glucose (mg/dL) 132 H 137 H 115 H (70-110) mg/dL 07/30/22 07/30/22 Range/Units 07:59 11:37 PT 16.7 H (9.0-12.0) sec INR 1.7 H (<1.2) POC Glucose (mg/dL) 148 H (70-110) mg/dL Microbiology - Last 24 Hours (Table) 07/23/22 13:47 Blood Culture - Final Blood Assessment and Plan Assessment: right lower extremity peripheral vascular disease right foot dry gangrene Innis 5 Plan: Plan for follow up with Dr. Reina in the office in 1-2 weeks. Pain control with [place] as outpatient Ok for discharge
[2022-07-30 12:52] LABS: Basophils % (A) 0 %; Eosinophils # (A) 0.2 k/uL (0-0.7); Eosinophils % (A) 2 %; HCT 36.3 % (34.0-46.0); HGB 11.9 gm/dL (11.4-16.0); Lymphocytes # (A) 1.4 k/uL (1.0-4.8); Lymphocytes % (A) 11 %; MCHC 32.8 g/dL (31.0-37.0); MCV 88.5 fL (80.0-100.0); Mean Platelet Volume 8.2; Monocytes # (A) 0.9 k/uL (0-1.0); Monocytes % (A) 8 %; Neutrophils # (A) 9.5 k/uL (1.3-7.7); Neutrophils % (A) 78 %; Platelet Count 291 k/uL (150-450); RDW 13.1 % (11.5-15.5); WBC 12.3 k/uL (3.8-10.6)
[2022-07-30 13:09] LABS: African American GFR (CKD) >90 (>60 ml/min/1.73 sqM); Anion Gap 14 mmol/L; Blood Urea Nitrogen 18 mg/dL (7-17); Calcium 9.2 mg/dL (8.4-10.2); Carbon Dioxide 29 mmol/L (22-30); Chloride 94 mmol/L (98-107); Glucose 150 mg/dL (74-99); Non-African American GFR(CKD) 82 (>60 ml/min/1.73 sqM); Potassium 4.3 mmol/L (3.5-5.1); Sodium 137 mmol/L (137-145)
[2022-07-30 14:38] LABS: Glucose,Whole Blood 151 mg/dL (70-110)
[2022-07-30 16:17] LABS: Glucose,Whole Blood 122 mg/dL (70-110)
[2022-07-30] MEDS: CALCIUM CARBONATE LIQUID 500 MG/5 ML CUP PO SCH (16:43)
[2022-07-30] MEDS: LACTATED RINGERS 1,000 ML IV SCH (16:45)
[2022-07-30] MEDS ORDERED: WARFARIN 5 MG TAB PO ONE (18:00)
--- NOTE | 2022-07-30 18:24 | P.PN ---
Progress Note - Text Progress Note Date: 07/30/22 Hospital course: Patient admitted with atrial fibrillation with a rapid ventricular rate. Also has gangrene. Of the foot. Cardiac catheterization showed mild CAD. July 29: I assumed care of the patient from [facility] today. Laying in bed. Some pain in the right foot. Eating fair. No nausea vomiting. Discussed with the patient. Patient to continue with Coumadin. Add Aldactone. Possible DC tomorrow. July 30: Supple patient this morning. Feeling better. Some pain in the right foot. Discussed with patient's daughter over the phone. Also discussed Dr. Butler. Patient is cleared by vascular to go home. Late in the day nurse called me that patient is not feeling well. Therefore admission has been held. Total time spent more than 50 minutes today. Active Medications Acetaminophen (Acetaminophen Tab 500 Mg Tab) 1,000 mg PO Q6HR PRN PRN Reason: Pain or Fever > 100.5 Hydrocodone Bitart/Acetaminophen (Hydrocodone/Apap 5-325mg 1 Each Tab) 1 each PO Q4HR PRN PRN Reason: Pain Last Admin: 07/30/22 11:43 Dose: 1 each Amiodarone HCl (Amiodarone 200 Mg Tab) 400 mg PO BID [facility] Last Admin: 07/30/22 08:09 Dose: 400 mg Atorvastatin Calcium (Atorvastatin 40 Mg Tab) 40 mg PO DAILY [facility] Last Admin: 07/30/22 08:08 Dose: 40 mg Calcium Carbonate/Glycine (Calcium Carbonate Liquid 500 Mg/5 Ml Cup) 500 mg PO TID-W/MEALS [facility] Last Admin: 07/30/22 16:43 Dose: Not Given Clopidogrel Bisulfate (Clopidogrel 75 Mg Tab) 75 mg PO DAILY [facility] Last Admin: 07/30/22 08:08 Dose: 75 mg Dextrose/Water (Dextrose 50% Syringe 50 Ml) 25 ml IVP PER PROTOCOL PRN; Protocol PRN Reason: Hypoglycemia Dextrose/Water (Dextrose 50% Syringe 50 Ml) 50 ml IVP PER PROTOCOL PRN; Protocol PRN Reason: Hypoglycemia Duloxetine HCl (Duloxetine Hcl 30 Mg Capsule.Dr) 30 mg PO DAILY [facility] Last Admin: 07/30/22 08:08 Dose: 30 mg Furosemide (Furosemide 10 Mg/Ml 2 Ml Vial) 20 mg IV DAILY [facility] Last Admin: 07/30/22 08:08 Dose: 20 mg Gabapentin (Gabapentin 300 Mg Cap) 300 mg PO TID [facility] Last Admin: 07/30/22 16:11 Dose: 300 mg Hydrochlorothiazide (Hydrochlorothiazide 12.5 Mg Cap) 12.5 mg PO DAILY [facility] Last Admin: 07/30/22 08:08 Dose: 12.5 mg Hydromorphone HCl (Hydromorphone 0.5 Mg/0.5 Ml Syringe) 0.5 mg IVP Q6HR PRN PRN Reason: Severe Pain (Scale 7 to 10) Last Admin: 07/30/22 08:07 Dose: 0.5 mg Cefazolin Sodium 2 gm/ Sodium (Chloride) 50 mls @ 100 mls/hr IVPB Q8HR [facility]; Protocol Last Admin: 07/30/22 16:11 Dose: 100 mls/hr Lactated Ringer's (Lactated Ringers) 1,000 mls @ 100 mls/hr IV .Q10H [facility] Last Admin: 07/30/22 16:45 Dose: 100 mls/hr Insulin Aspart (Insulin Aspart (Novolog) 100 Unit/Ml Vial) 0 unit SQ ACHS [facility]; Protocol Last Admin: 07/30/22 16:43 Dose: Not Given Insulin Detemir (Insulin Detemir (Levemir) 100 Unit/Ml Syr) 15 unit SQ BID@0700,2100 [facility] Last Admin: 07/30/22 06:38 Dose: 15 unit Losartan Potassium (Losartan 50 Mg Tab) 100 mg PO DAILY [facility] Last Admin: 07/30/22 08:08 Dose: 100 mg Melatonin (Melatonin 3 Mg Tablet) 3 mg PO HS PRN PRN Reason: Insomnia Last Admin: 07/24/22 23:11 Dose: 3 mg Metformin HCl (Metformin 500 Mg Tab) 1,000 mg PO BID [facility] Last Admin: 07/30/22 08:08 Dose: 1,000 mg Metoprolol Succinate (Metoprolol Succinate (Er) 100 Mg Tab.Er.24h) 100 mg PO D AILY [facility] Last Admin: 07/30/22 08:08 Dose: 100 mg Miscellaneous Information (Warfarin Per Pharmacy) 1 each MISCELLANE DIRECTED PRN; Protocol PRN Reason: Per Protocol Naloxone HCl (Naloxone 0.4 Mg/Ml 1 Ml Vial) 0.2 mg IV Q2M PRN PRN Reason: Opioid Reversal Ondansetron HCl (Ondansetron 4 Mg/2 Ml Vial) 4 mg IVP Q8HR PRN PRN Reason: Nausea And Vomiting Last Admin: 07/30/22 16:11 Dose: 4 mg Spironolactone (Spironolactone 25 Mg Tab) 25 mg PO DAILY [facility] Last Admin: 07/30/22 08:08 Dose: 25 mg On examination: VITAL SIGNS: 98.1, 63, 18, 112/86, 98% room air GENERAL APPEARANCE: Reclining in bed, awake comfortable HEENT: Normal external appearance of nose and ear. Oral cavity normal EYES: Pupils equal. Conjunctiva normal. NECK: JVD not raised. Mass not palpable. RESPIRATORY: Respiratory effort normal. Lungs clear to auscultation. CARDIOVASCULAR: First and second sounds normal. No edema. ABDOMEN: Soft. Liver and spleen not palpable. No tenderness. No mass palpable. PSYCHIATRY: Alert and oriented x3. Mood and affect normal. Right lower extremity: Dry gangrene of the first fourth and fifth toe. No swelling of the second and third toe. Bilateral PT and DP Doppler signals present. INVESTIGATIONS, reviewed in the clinical context: July 28: White count 10.4 hemoglobin 10.7 platelets 252 potassium 3.8 creatinine 0.80 Venous Doppler: Bilateral negative for DVT Cardiac catheterization: [July 28]: Mild CAD with 30-40% RCA, 40% mid circumflex, 80% diagonal 1 and 80% diagonal 2 stenosis. 2-D echocardiogram: EF 35-40%. [id number] MR. Assessment and plan: -Right foot with a 4-5 with toe gangrene Being followed by Dr. Reina. For outpatient follow-up for possible T and A or below-knee amputation. -Probable right foot cellulitis secondary to gangrene IV Ancef. Check pro calcitonin -Peripheral arterial disease Coumadin. Plavix. -Diabetes mellitus type 2, chronically on insulin Levemir. Follow Accu-Cheks -Persistent atrial fibrillation, rate from 100 Amiodarone taper. Coumadin. Metoprolol. -Hyperlipidemia -Essential hypertension -Chronic congestive heart failure from systolic dysfunction EF 35-40%. Toprol-XL. Cozaar. Add Aldactone. -Mild to moderate MR - Mild CAD with 30-40% RCA, 40% mid circumflex, 80% diagonal 1 and 80% diagonal 2 stenosis. Aspirin, Lipitor. Lopressor Patient is cleared by vascular. Late in the day not feeling well. Therefore discharge held.
[2022-07-30 20:18] LABS: Glucose,Whole Blood 133 mg/dL (70-110)
[2022-07-31] MEDS: HYDROmorphone 0.5 MG/0.5 ML SYRINGE IVP PRN (01:54)
[2022-07-31] MEDS: HYDROcodone/APAP 5-325MG 1 EACH TAB PO PRN ×4 (04:09→16:19)
[2022-07-31] MEDS: LACTATED RINGERS 1,000 ML IV SCH ×2 (04:14→15:14)
[2022-07-31 06:18] LABS: Glucose,Whole Blood 76 mg/dL (70-110)
[2022-07-31] MEDS: INSULIN ASPART (NovoLOG) 100 UNIT/ML VIAL SQ SCH ×3 (06:30→17:05)
[2022-07-31] MEDS: INSULIN DETEMIR (LEVEMIR) 100 UNIT/ML SYR SQ SCH (06:35)
[2022-07-31] MEDS: CALCIUM CARBONATE LIQUID 500 MG/5 ML CUP PO SCH ×2 (07:00→12:22)
[2022-07-31] MEDS: METOPROLOL SUCCINATE (ER) 100 MG TAB.ER.24H PO SCH (09:19)
[2022-07-31] MEDS: hydroCHLOROthiazide 12.5 MG CAP PO SCH (09:19)
[2022-07-31] MEDS: GABAPENTIN 300 MG CAP PO SCH ×2 (09:19→16:19)
[2022-07-31] MEDS: metFORMIN 500 MG TAB PO SCH (09:19)
[2022-07-31] MEDS: ATORVASTATIN 40 MG TAB PO SCH (09:19)
[2022-07-31] MEDS: DULoxetine HCL 30 MG CAPSULE.DR PO SCH ×2 (09:19→10:16)
[2022-07-31] MEDS: LOSARTAN 50 MG TAB PO SCH (09:19)
[2022-07-31] MEDS: CLOPIDOGREL 75 MG TAB PO SCH (09:20)
[2022-07-31] MEDS: FUROSEMIDE 10 MG/ML 2 ML VIAL IV SCH (09:20)
[2022-07-31] MEDS: SPIRONOLACTONE 25 MG TAB PO SCH (09:20)
[2022-07-31] MEDS: AMIODARONE 200 MG TAB PO SCH (09:20)
--- NOTE | 2022-07-31 10:45 | P.PN ---
Subjective Progress Note Date: 07/31/22 Principal diagnosis: PAD, dry gangrene toes Should seen and examined today as a follow-up. Yesterday she was supposed go home however in the late afternoon she had an episode of feeling diaphoretic and not well. Discharge was canceled. She denies any further symptoms. Denies any chest pain or shortness of breath. Still has pain to the right foot. Plan is for outpatient follow-up to discuss further surgical amputation. Objective - Vital Signs Vital signs: Vital Signs Temp 97.6 F 07/31/22 08:00 Pulse 109 H 07/31/22 08:00 Resp 18 07/31/22 08:00 BP 106/66 07/31/22 08:00 Pulse Ox 99 07/31/22 08:00 FiO2 21 07/26/22 07:52 Intake & Output 07/30/22 07/31/22 07/31/22 18:59 06:59 18:59 Intake Total 360 Balance 360 Weight 85 kg Intake: Oral 360 Other: Voiding Method Toilet # Voids 1 - Exam General appearance: The patient is alert, oriented, appears in no acute distress. HET: Head is normocephalic and atraumatic. Pupils are equal and reactive. Neck: Supple. Heart: Irregular rate and rhythm. Lungs: Equal expansion, normal respiratory effort. Abdomen: Soft, nontender, nondistended. Extremities: Bilateral lower extremities warm to the touch. Right foot with edema, great toe, fourth and fifth toes with dry gangrene. Neurological: No focal deficits. Alert and oriented. - Labs CBC & Chem 7: 07/30/22 12:08 07/30/22 12:08 Labs: Abnormal Lab Results - Last 24 Hours (Table) 07/30/22 07/30/22 07/30/22 Range/Units 11:37 12:08 12:08 WBC 12.3 H (3.8-10.6) k/uL Neutrophils # 9.5 H (1.3-7.7) k/uL Chloride 94 L (98-107) mmol/L BUN 18 H (7-17) mg/dL Glucose 150 H (74-99) mg/dL POC Glucose (mg/dL) 148 H (70-110) mg/dL 07/30/22 07/30/22 07/30/22 Range/Units 14:36 16:15 20:17 WBC (3.8-10.6) k/uL Neutrophils # (1.3-7.7) k/uL Chloride (98-107) mmol/L BUN (7-17) mg/dL Glucose (74-99) mg/dL POC Glucose (mg/dL) 151 H 122 H 133 H (70-110) mg/dL Assessment and Plan Assessment: 1. Dry Gangrene toes right foot 2. Peripheral arterial disease currently on Plavix 3. Rapid atrial fibrillation 4. Echocardiogram with EF 35-40% 5. Supratherapeutic INR 6. Previous revascularization of right lower extremity 7. Diabetes mellitus 8. History atrial fibrillation on coumadin 9. History hypertension Plan: 1. No plans on vascular surgical intervention at this time. Plan for outpatient TMA versus BKA. This was discussed with both patient and daughter over the phone. Will need to be off Plavix 5 days prior to procedure, to avoid general anesthesia. 2. Cardiology on consult, appreciate recommendations on cardiac clearance for possible right lower extremity TMA versus below the knee amputation. Patient to follow up outpatient for formal cardiac clearance 3. Continue medical management Thank you for this consultation, we will sign off at this time. The impression and plan of care has been dictated as directed. Dr. Reina I performed a history and examination of this patient, discussed the same with the dictator. I agree with the dictator's note ,documented as a scribe. Any additional findings or plans will be noted.
[2022-07-31 11:55] LABS: Glucose,Whole Blood 90 mg/dL (70-110)
[2022-07-31 12:15] LABS: INR 2.1 (<1.2); Prothrombin Time 20.8 sec (9.0-12.0)
[2022-07-31 13:01] VITALS: BP 96/59; PULSE 78; RESP 17; TEMP 97.9
[2022-07-31 16:45] LABS: Glucose,Whole Blood 104 mg/dL (70-110)
[2022-07-31] MEDS ORDERED: WARFARIN 2 MG TAB PO ONE (18:00)
--- NOTE | 2022-07-31 20:22 | P.DS ---
Providers Date of admission: 07/23/22 17:20 Expected date of discharge: 07/31/22 Attending physician: Scotty William Consults: 07/23/22 17:20 Consult Physician Routine Consulting Provider: Cathleen Reina Consult Reason/Comments: Peripheral vascular disease, diabetic right foot with gangrenous toes Do you want consulting provider notified?: Yes Primary care physician: Sumi Brewer [facility] Course: Hospital course: Patient admitted with atrial fibrillation with a rapid ventricular rate. Also has gangrene. Of the foot. Cardiac catheterization showed mild CAD. July 29: I assumed care of the patient from [facility] today. Laying in bed. Some pain in the right foot. Eating fair. No nausea vomiting. Discussed with the patient. Patient to continue with Coumadin. Add Aldactone. Possible DC tomorrow. July 30: Saw patient this morning. Feeling better. Some pain in the right foot. Discussed with patient's daughter over the phone. Also discussed Dr. Butler. Patient is cleared by vascular to go home. Late in the day nurse called me that patient is not feeling well. Therefore admission has been held. Total time spent more than 50 minutes today. July 31: Feeling much better today. Atrial flutter rate controlled. Cleared by currently. Seen by vascular. Questions answered. Follow outpatient vascular. On examination: VITAL SIGNS: 97.9, 78, 17, 96/59, 97% room air GENERAL APPEARANCE: Reclining in bed, awake comfortable HEENT: Normal external appearance of nose and ear. Oral cavity normal EYES: Pupils equal. Conjunctiva normal. NECK: JVD not raised. Mass not palpable. RESPIRATORY: Respiratory effort normal. Lungs clear to auscultation. CARDIOVASCULAR: First and second sounds normal. No edema. ABDOMEN: Soft. Liver and spleen not palpable. No tenderness. No mass palpable. PSYCHIATRY: Alert and oriented x3. Mood and affect normal. Right lower extremity: Dry gangrene of the first fourth and fifth toe. No swelling of the second and third toe. Bilateral PT and DP Doppler signals present. INVESTIGATIONS, reviewed in the clinical context: July 31: INR 2.1 July 28: White count 10.4 hemoglobin 10.7 platelets 252 potassium 3.8 creatinine 0.80 Venous Doppler: Bilateral negative for DVT Cardiac catheterization: [July 28]: Mild CAD with 30-40% RCA, 40% mid circumflex, 80% diagonal 1 and 80% diagonal 2 stenosis. 2-D echocardiogram: EF 35-40%. [id number] MR. Assessment and plan: -Right foot with a 4-5 with toe gangrene Being followed by Dr. Reina. For outpatient follow-up for possible T and A or below-knee amputation. -Probable right foot cellulitis secondary to gangrene IV Ancef. Check pro calcitonin -Peripheral arterial disease Coumadin. Plavix. -Diabetes mellitus type 2, chronically on insulin Levemir. Follow Accu-Cheks -Persistent atrial fibrillation, rate from 100 Amiodarone taper. Coumadin. Metoprolol. -Hyperlipidemia -Essential hypertension -Chronic congestive heart failure from systolic dysfunction EF 35-40%. Toprol-XL. Cozaar. Add Aldactone. -Mild to moderate MR - Mild CAD with 30-40% RCA, 40% mid circumflex, 80% diagonal 1 and 80% diagonal 2 stenosis. Aspirin, Lipitor. Lopressor Disposition: Home Plan - Discharge Summary Discharge Rx Participant: No New Discharge Prescriptions: New Spironolactone [Aldactone] 25 mg PO DAILY #30 tab Amiodarone [Cordarone] 400 mg PO DIRECTED #60 tab Metoprolol Succinate (ER) [Toprol XL] 100 mg PO DAILY #30 tab Continue Insulin Detemir [Levemir Flexpen] 15 unit SQ BID metFORMIN HCL [Glucophage] 1,000 mg PO BID Warfarin [Coumadin] 5 mg PO SUTUWETHFRSA Atorvastatin [Lipitor] 40 mg PO DAILY traMADol HCL 25 mg PO BID PRN PRN Reason: Pain Warfarin [Coumadin] 2.5 mg PO MO Clopidogrel [Plavix] 75 mg PO DAILY DULoxetine HCL [Cymbalta] 30 mg PO DAILY Cephalexin [Keflex] 500 mg PO TID #30 cap Losartan/Hydrochlorothiazide [Losartan-Hctz 100-12.5 mg Tab] 1 tab PO DAILY Gabapentin 300 mg PO TID Acetaminophen Tab [Tylenol] 1,000 mg PO Q6HR PRN PRN Reason: Pain Or Fever > 100.5 Discontinued Metoprolol Succinate [Toprol XL] 50 mg PO DAILY dilTIAZem HCL [dilTIAZem HCL 24Hr ER (Xr)] 120 mg PO DAILY Discharge Medication List Insulin Detemir [Levemir Flexpen] 15 unit SQ BID 11/14/13 [History] metFORMIN HCL [Glucophage] 1,000 mg PO BID 11/14/13 [History] Acetaminophen Tab [Tylenol] 1,000 mg PO Q6HR PRN 07/23/22 [History] Atorvastatin [Lipitor] 40 mg PO DAILY 07/23/22 [History] Clopidogrel [Plavix] 75 mg PO DAILY 07/23/22 [History] DULoxetine HCL [Cymbalta] 30 mg PO DAILY 07/23/22 [History] Gabapentin 300 mg PO TID 07/23/22 [History] Losartan/Hydrochlorothiazide [Losartan-Hctz 100-12.5 mg Tab] 1 tab PO DAILY 07/23/22 [History] Warfarin [Coumadin] 2.5 mg PO MO 07/23/22 [History] Warfarin [Coumadin] 5 mg PO SUTUWETHFRSA 07/23/22 [History] traMADol HCL 25 mg PO BID PRN 07/23/22 [History] Amiodarone [Cordarone] 400 mg PO DIRECTED #60 tab 07/30/22 [Rx] Cephalexin [Keflex] 500 mg PO TID #30 cap 07/30/22 [Rx] Metoprolol Succinate (ER) [Toprol XL] 100 mg PO DAILY #30 tab 07/30/22 [Rx] Spironolactone [Aldactone] 25 mg PO DAILY #30 tab 07/30/22 [Rx] Follow up Appointment(s)/Referral(s): Quinten Lanier DO [STAFF PHYSICIAN] - 08/07/22 1:30 pm Cathleen Reina DO [STAFF PHYSICIAN] - 08/23/22 10:15 am (Sunday. No earlier appointment available.) Sumi Brewer MD [Primary Care Provider] - 1-2 days (please call to schedule follow up, office not answering. ) [facility] [NON-STAFF] - As Needed Patient Instructions/Handouts: A-fib (Atrial Fibrillation) (DC), Atherectomy (DC) Activity/Diet/Wound Care/Special Instructions: Patient will need a wheelchair to complete ADLs that cannot be completed with a cane or walker. She has someone to help propel her. Discharge Disposition: HOME SELF-CARE
[2022-08-01] MEDS ORDERED: CALCIUM CARBONATE 500 MG CHEWABLE PO SCH (07:30)
== END 2022-07-31 18:04 | disposition home or self-care (01) | DRG 287 ==
LOC: EC 13:08 → 3SCARD 17:20
PROVIDERS: ADMIT Hospitalist; ATTEND Hospitalist
PROC: B2111ZZ Fluoroscopy of Multiple Coronary Arteries using Low Osmolar Contrast (ICD-10-PCS; principal; 2022-07-26 08:55)
PROC: 4A023N7 Measurement of Cardiac Sampling and Pressure, Left Heart, Percutaneous Approach (ICD-10-PCS; principal; 2022-07-26 08:55)
DX: I48.20 Chronic atrial fibrillation, unspecified (principal); E11.52 Type 2 diabetes mellitus with diabetic peripheral angiopathy with gangrene; I96 Gangrene, not elsewhere classified; L03.115 Cellulitis of right lower limb; I50.22 Chronic systolic (congestive) heart failure; E11.621 Type 2 diabetes mellitus with foot ulcer; R79.1 Abnormal coagulation profile; L97.519 Non-pressure chronic ulcer of other part of right foot with unspecified severity; I11.0 Hypertensive heart disease with heart failure; I42.9 Cardiomyopathy, unspecified; I34.0 Nonrheumatic mitral (valve) insufficiency; I25.10 Atherosclerotic heart disease of native coronary artery without angina pectoris; E66.9 Obesity, unspecified; Z68.28 Body mass index [BMI] 28.0-28.9, adult; E78.5 Hyperlipidemia, unspecified; Z79.01 Long term (current) use of anticoagulants; Z79.4 Long term (current) use of insulin; Z79.84 Long term (current) use of oral hypoglycemic drugs; Z79.899 Other long term (current) drug therapy; Z79.02 Long term (current) use of antithrombotics/antiplatelets; Z95.820 Peripheral vascular angioplasty status with implants and grafts
CPT/HCPCS: 36415; 71046; 80048; 80053; 83036; 83605; 83735; 83880; 84145; 84443; 84484; 85025; 85610; 85730; 93306; 93458; 93970; 94760; 96365; 96366; 96368; 96375; 96376; 99291

== ENCOUNTER 2022-08-10 12:20 | Observation (INO) | payer MEDICARE, OTHER ==
[2022-08-10] MEDS ORDERED: SODIUM CHLORIDE 0.9% 500 ML 500 ML IV STA (12:57)
--- NOTE | 2022-08-10 12:59 | ED ---
General Adult HPI - General Chief complaint: Weakness Stated complaint: weakness Time Seen by Provider: 08/10/22 12:30 Source: patient, RN notes reviewed, old records reviewed Mode of arrival: ambulatory - History of Present Illness Initial comments: This is a 66-year-old female who presents emergency Department with a gangrenous first and fourth and fifth toe on the right patient states this is been long- standing and she supposed to have surgery later this month with Dr. Reina. Patient comes in today because she is experiencing generalized weakness which is getting slowly worse over the last 2 weeks. Patient denies any chest pain difficult breathing shortest breath per patient denies any fever chills or cough per patient denies any headache patient denies any focal numbness or weakness per patient denies any abdominal pain patient denies nausea vomiting diarrhea. Patient denies any dysuria hematuria urinary frequency. Patient states she just overall feels much more fatigued. Patient states she does have a history of atrial fibrillation and recently was in for A. fib with rapid ventricular response per patient is on Plavix and Coumadin. - Related Data Home Medications Medication Instructions Recorded Confirmed Insulin Detemir [Levemir Flexpen] 15 unit SQ BID 11/14/13 08/10/22 metFORMIN HCL [Glucophage] 1,000 mg PO BID 11/14/13 08/10/22 Acetaminophen Tab [Tylenol] 1,000 mg PO Q6HR PRN 07/23/22 08/10/22 Atorvastatin [Lipitor] 40 mg PO DAILY 07/23/22 08/10/22 Clopidogrel [Plavix] 75 mg PO DAILY 07/23/22 08/10/22 DULoxetine HCL [Cymbalta] 30 mg PO DAILY 07/23/22 08/10/22 Gabapentin 300 mg PO TID 07/23/22 08/10/22 Losartan/Hydrochlorothiazide 1 tab PO DAILY 07/23/22 08/10/22 [Losartan-Hctz 100-12.5 mg Tab] Warfarin [Coumadin] 2.5 mg PO MO 07/23/22 08/10/22 Warfarin [Coumadin] 5 mg PO SUTUWETHFRSA 07/23/22 08/10/22 traMADol HCL 25 mg PO BID PRN 07/23/22 08/10/22 Amiodarone [Cordarone] 200 mg PO DAILY 05/11/23 05/11/23 Metoprolol Succinate (ER) [Toprol 50 mg PO HS 08/10/22 08/10/22 Xl] Previous Rx's Medication Instructions Recorded Cephalexin [Keflex] 500 mg PO TID #30 cap 07/30/22 Metoprolol Succinate (ER) [Toprol 100 mg PO DAILY #30 tab 07/30/22 XL] Spironolactone [Aldactone] 25 mg PO DAILY #30 tab 07/30/22 Allergies Allergy/AdvReac Type Severity Reaction Status Date / Time morphine AdvReac Nausea Verified 08/10/22 15:21 Review of Systems ROS Statement: Those systems with pertinent positive or pertinent negative responses have been documented in the HPI. ROS Other: All systems not noted in ROS Statement are negative. Past Medical History Past Medical History: Atrial Fibrillation, Diabetes Mellitus, Eye Disorder, Hyperlipidemia, Hypertension Additional Past Medical History / Comment(s): CATARACT, chronic foot wounds EF 35%, PAD, History of Any Multi-Drug Resistant Organisms: None Reported Past Surgical History: Back Surgery, Section Past Anesthesia/Blood Transfusion Reactions: No Reported Reaction Past Psychological History: No Psychological Hx Reported Smoking Status: Never smoker - Past Family History Father Family Medical History: Cancer General Exam - General Exam Comments Initial Comments: GENERAL: Patient is well-developed and well-nourished. Patient is nontoxic and well-hydrated and is in no acute distress. ENT: Neck is soft and supple. No significant lymphadenopathy is noted. Oropharynx is clear. Moist mucous membranes. Neck has full range of motion without eliciting any pain. EYES: The sclera were anicteric and conjunctiva were pink and moist. Extraocular move ments were intact and pupils were equal round and reactive to light. Eyelids were unremarkable. PULMONARY: Unlabored respirations. Good breath sounds bilaterally. No audible rales rhonchi or wheezing was noted. CARDIOVASCULAR: Patient is tachycardic at 105 bpm ABDOMEN: Soft and nontender with normal bowel sounds. SKIN: Patient has a gangrenous first fourth and fifth toe on the right I compared to a picture for 2 weeks ago that the daughter had noted did not look to be any changes. NEUROLOGIC: Patient is alert and oriented x3. Cranial nerves II through XII are grossly intact. Motor and sensory are also intact. Normal speech, volume and content. Symmetrical smile. MUSCULOSKELETAL: Normal extremities with adequate strength and full range of motion. Patient has edema to the right leg 2+ patient states this is chronic LYMPHATICS: No significant lymphadenopathy is noted PSYCHIATRIC: Normal psychiatric evaluation. Course Vital Signs 08/10/22 08/10/22 08/10/22 12:27 15:49 19:54 Temperature 98.1 F Pulse Rate 115 H 116 H 101 H Respiratory 18 18 16 Rate Blood Pressure 127/78 141/81 132/80 O2 Sat by Pulse 96 99 97 Oximetry Procedures - Sepsis Sepsis Focused Exam #1 Time Sepsis Criteria Met: 19:20 Sepsis Focused Exam Date: 08/10/22 Sepsis Focused Exam Time: 20:10 Sepsis Focused Exam Complete: Yes Vital Signs & RN Notes Reviewed: Yes Capillary Refill: < 2 Seconds: Fingers Peripheral Pulses: Normal: Radial (R) Skin Color: Normal for Patient Respiratory Exam: normal lung sounds Cardiovascular Exam: normal rhythm Medical Decision Making - Medical Decision Making EKG was interpreted by myself shows atrial fibrillation with rapid ventricular response at 118 bpm QRS is 102 QT interval 318 QTC is 388. Patient's EKG shows no ST segment elevation or depression. Patient's ideal body weight is 63.5 kg Was pt. sent in by a medical professional or institution (, PA, SALES ENGAGEMENT MANAGER, urgent care, hospital, or detention...) When possible be specific @ -No Did you speak to anyone other than the patient for history (EMS, parent, family, police, friend...)? What history was obtained from this source @ -Daughter gives most of the history. Did you review nursing and triage notes (agree or disagree)? Why? @ -I reviewed and agree with nursing and triage notes Were old charts reviewed (outside hosp., previous admission, EMS record, old EKG, old radiological studies, urgent care reports/EKG's, detention records)? Report findings @ -Reviewed old lab work on this patient Differential Diagnosis (chest pain, altered mental status, abdominal pain women, abdominal pain men, vaginal bleeding, weakness, fever, dyspnea, syncope, headache, dizziness, GI bleed, back pain, seizure, CVA, palpatations, mental health, musculoskeletal)? @ -Differential Weakness: Hypoglycemia, shock, sepsis, hyponatremia, anemia, infection, MD, ETOH, adverse medicine reaction, overdose, stroke, this is not meant to be an all-inclusive list. EKG interpreted by me (3pts min.). @ -As above X-rays interpreted by me (1pt min.). @ -Chest x-ray shows no acute abnormality was interpreted by myself CT interpreted by me (1pt min.). @ -None U/S interpreted by me (1pt. min.). @ -None done What testing was considered but not performed or refused? (CT, X-rays, U/S, labs)? Why? @ -None What meds were considered but not given or refused? Why? @ -None Did you discuss the management of the patient with other professionals (madhavi villalta i.eThu Haynes, PA, SALES ENGAGEMENT MANAGER, lab, RT, psych nurse, clinical social work aide, organic gardening teacher, teacher, chief supply chain officer, disability case manager)? Give summary @ -No Was smoking cessation discussed for >3mins.? @ -No Was critical care preformed (if so, how long)? @ -No Were there social determinants of health that impacted care today? How? (Homelessness, low income, unemployed, alcoholism, drug addiction, transportation, low edu. Level, literacy, decrease access to med. care, shelter, rehab)? @ -No Was there de-escalation of care discussed even if they declined (Discuss DNR or withdrawal of care, Hospice)? DNR status @ -No What co-morbidities impacted this encounter? (DM, HTN, Smoking, COPD, CAD, Cancer, CVA, ARF, Chemo, Hep., AIDS, mental health diagnosis, sleep apnea, morbid obesity)? @ -None Was patient admitted / discharged? Hospital course, mention meds given and route, prescriptions, significant lab abnormalities, going to OR and other pertinent info. @ -Patient had elevated white count as well as a lactic acid of 4.2 I see no source of infection patient is unable to give any urinary she refuses a catheterization. Patient's foot is necrotic breakdown compared the foot compared the foot to a picture of the foot from a couple weeks ago and it looks unchanged to me. WAS DONE RULE OUT DVT NO DVT WAS FOUND. I SPOKE WITH THE [facility] AGREED TO ADMIT THE PATIENT AND THE PATIENT WROTE ADMITTING ORDERS. Undiagnosed new problem with uncertain prognosis? @ -No Drug Therapy requiring intensive monitoring for toxicity (Heparin, Nitro, Insulin, Cardizem)? @ -No Were any procedures done? @ -No Diagnosis/symptom? @ -Gangrene foot right Acute, or Chronic, or Acute on Chronic? @ -Chronic Uncomplicated (without systemic symptoms) or Complicated (systemic symptoms)? @ -Complicated Side effects of treatment? @ -No Exacerbation, Progression, or Severe Exacerbation? @ -No Poses a threat to life or bodily function? How? (Chest pain, USA, MD, pneumonia, PE, COPD, DKA, ARF, appy, cholecystitis, CVA, Diverticulitis, Homicidal, Suicidal, threat to staff... and all critical care pts) @ -Yes this could lead to sepsis and end organ dysfunction Diagnosis/symptom? @ -Coagulopathy Acute, or Chronic, or Acute on Chronic? @ -Acute Uncomplicated (without systemic symptoms) or Complicated (systemic symptoms)? @ -Uncomplicated Side effects of treatment? @ -none Exacerbation, Progression, or Severe Exacerbation] @ -no Poses a threat to life or bodily function? @ -no Diagnosis/symptom? @ -Lactic acidosis Acute, or Chronic, or Acute on Chronic? @ -Acute Uncomplicated (without systemic symptoms) or Complicated (systemic symptoms)? @ -Uncomplicated Side effects of treatment? @ -none Exacerbation, Progression, or Severe Exacerbation] @ -no Poses a threat to life or bodily function? @ -no - Lab Data Result diagrams: 08/10/22 13:22 08/10/22 13:22 Lab Results 08/10/22 08/10/22 08/10/22 Range/Units 13:22 13:22 13:22 WBC 11.5 H (3.8-10.6) k/uL RBC 4.10 (3.80-5.40) m/uL Hgb 11.9 (11.4-16.0) gm/dL Hct 36.4 (34.0-46.0) % MCV 88.7 (80.0-100.0) fL MCH 29.1 (25.0-35.0) pg MCHC 32.8 (31.0-37.0) g/dL RDW 13.5 (11.5-15.5) % Plt Count 348 (150-450) k/uL MPV 8.5 Neutrophils % 77 % Lymphocytes % 11 % Monocytes % 7 % Eosinophils % 3 % Basophils % 1 % Neutrophils # 8.8 H (1.3-7.7) k/uL Lymphocytes # 1.3 (1.0-4.8) k/uL Monocytes # 0.8 (0-1.0) k/uL Eosinophils # 0.4 (0-0.7) k/uL Basophils # 0.1 (0-0.2) k/uL PT 75.7 H (9.0-12.0) sec INR 7.5 H* (<1.2) APTT 45.2 H (22.0-30.0) sec Sodium 138 (137-145) mmol/L Potassium 4.7 (3.5-5.1) mmol/L Chloride 97 L (98-107) mmol/L Carbon Dioxide 22 (22-30) mmol/L Anion Gap 19 mmol/L BUN 20 H (7-17) mg/dL Creatinine 0.90 (0.52-1.04) mg/dL Est GFR (CKD-EPI)AfAm 76 (>60 ml/min/1.73 sqM) Est GFR (CKD-EPI)NonAf 66 (>60 ml/min/1.73 sqM) Glucose 184 H (74-99) mg/dL Lactic Ac Sepsis Rflx Plasma Lactic Acid Armani (0.7-2.0) mmol/L Calcium 9.3 (8.4-10.2) mg/dL Magnesium 1.2 L (1.6-2.3) mg/dL Total Bilirubin 0.3 (0.2-1.3) mg/dL AST 25 (14-36) U/L ALT 18 (4-34) U/L Alkaline Phosphatase 57 (38-126) U/L Troponin I (0.000-0.034) ng/mL Total Protein 7.9 (6.3-8.2) g/dL Albumin 4.2 (3.5-5.0) g/dL TSH 3.240 (0.465-4.680) mIU/L Urine Color Urine Appearance (Clear) Urine pH (5.0-8.0) Ur Specific Martha (1.001-1.035) Urine Protein (Negative) Urine Glucose (UA) (Negative) Urine Ketones (Negative) Urine Blood (Negative) Urine Nitrite (Negative) Urine Bilirubin (Negative) Urine Urobilinogen (<2.0) mg/dL Ur Leukocyte Esterase (Negative) Urine RBC (0-5) /hpf Urine WBC (0-5) /hpf Ur Squamous Epith Cells (0-4) /hpf Hyaline Casts (0-2) /lpf Urine Mucus (None) /hpf 08/10/22 08/10/22 08/10/22 Range/Units 13:22 13:22 14:23 WBC (3.8-10.6) k/uL RBC (3.80-5.40) m/uL Hgb (11.4-16.0) gm/dL Hct (34.0-46.0) % MCV (80.0-100.0) fL MCH (25.0-35.0) pg MCHC (31.0-37.0) g/dL RDW (11.5-15.5) % Plt Count (150-450) k/uL MPV Neutrophils % % Lymphocytes % % Monocytes % % Eosinophils % % Basophils % % Neutrophils # (1.3-7.7) k/uL Lymphocytes # (1.0-4.8) k/uL Monocytes # (0-1.0) k/uL Eosinophils # (0-0.7) k/uL Basophils # (0-0.2) k/uL PT (9.0-12.0) sec INR (<1.2) APTT (22.0-30.0) sec Sodium (137-145) mmol/L Potassium (3.5-5.1) mmol/L Chloride (98-107) mmol/L Carbon Dioxide (22-30) mmol/L Anion Gap mmol/L BUN (7-17) mg/dL Creatinine (0.52-1.04) mg/dL Est GFR (CKD-EPI)AfAm (>60 ml/min/1.73 sqM) Est GFR (CKD-EPI)NonAf (>60 ml/min/1.73 sqM) Glucose (74-99) mg/dL Lactic Ac Sepsis Rflx Y Plasma Lactic Acid Armani 4.2 H* (0.7-2.0) mmol/L Calcium (8.4-10.2) mg/dL Magnesium (1.6-2.3) mg/dL Total Bilirubin (0.2-1.3) mg/dL AST (14-36) U/L ALT (4-34) U/L Alkaline Phosphatase (38-126) U/L Troponin I <0.012 (0.000-0.034) ng/mL Total Protein (6.3-8.2) g/dL Albumin (3.5-5.0) g/dL TSH (0.465-4.680) mIU/L Urine Color Urine Appearance (Clear) Urine pH (5.0-8.0) Ur Specific Martha (1.001-1.035) Urine Protein (Negative) Urine Glucose (UA) (Negative) Urine Ketones (Negative) Urine Blood (Negative) Urine Nitrite (Negative) Urine Bilirubin (Negative) Urine Urobilinogen (<2.0) mg/dL Ur Leukocyte Esterase (Negative) Urine RBC (0-5) /hpf Urine WBC (0-5) /hpf Ur Squamous Epith Cells (0-4) /hpf Hyaline Casts (0-2) /lpf Urine Mucus (None) /hpf 08/10/22 Range/Units 16:02 WBC (3.8-10.6) k/uL RBC (3.80-5.40) m/uL Hgb (11.4-16.0) gm/dL Hct (34.0-46.0) % MCV (80.0-100.0) fL MCH (25.0-35.0) pg MCHC (31.0-37.0) g/dL RDW (11.5-15.5) % Plt Count (150-450) k/uL MPV Neutrophils % % Lymphocytes % % Monocytes % % Eosinophils % % Basophils % % Neutrophils # (1.3-7.7) k/uL Lymphocytes # (1.0-4.8) k/uL Monocytes # (0-1.0) k/uL Eosinophils # (0-0.7) k/uL Basophils # (0-0.2) k/uL PT (9.0-12.0) sec INR (<1.2) APTT (22.0-30.0) sec Sodium (137-145) mmol/L Potassium (3.5-5.1) mmol/L Chloride (98-107) mmol/L Carbon Dioxide (22-30) mmol/L Anion Gap mmol/L BUN (7-17) mg/dL Creatinine (0.52-1.04) mg/dL Est GFR (CKD-EPI)AfAm (>60 ml/min/1.73 sqM) Est GFR (CKD-EPI)NonAf (>60 ml/min/1.73 sqM) Glucose (74-99) mg/dL Lactic Ac Sepsis Rflx Plasma Lactic Acid Armani (0.7-2.0) mmol/L Calcium (8.4-10.2) mg/dL Magnesium (1.6-2.3) mg/dL Total Bilirubin (0.2-1.3) mg/dL AST (14-36) U/L ALT (4-34) U/L Alkaline Phosphatase (38-126) U/L Troponin I (0.000-0.034) ng/mL Total Protein (6.3-8.2) g/dL Albumin (3.5-5.0) g/dL TSH (0.465-4.680) mIU/L Urine Color Yellow Urine Appearance Clear (Clear) Urine pH 5.5 (5.0-8.0) Ur Specific Martha 1.018 (1.001-1.035) Urine Protein 1+ H (Negative) Urine Glucose (UA) Negative (Negative) Urine Ketones Negative (Negative) Urine Blood Negative (Negative) Urine Nitrite Negative (Negative) Urine Bilirubin Negative (Negative) Urine Urobilinogen <2.0 (<2.0) mg/dL Ur Leukocyte Esterase Large H (Negative) Urine RBC 3 (0-5) /hpf Urine WBC 11 H (0-5) /hpf Ur Squamous Epith Cells 1 (0-4) /hpf Hyaline Casts 9 H (0-2) /lpf Urine Mucus Rare H (None) /hpf Disposition Clinical Impression: Gangrene of toe of left foot, Lactic acidosis, Coagulopathy Disposition: ADMITTED IP TO THIS HOSP Time of Disposition: 16:53
[2022-08-10 13:38] LABS: Basophils # (A) 0.1 k/uL (0-0.2); Basophils % (A) 1 %; Eosinophils # (A) 0.4 k/uL (0-0.7); Eosinophils % (A) 3 %; HCT 36.4 % (34.0-46.0); HGB 11.9 gm/dL (11.4-16.0); Lymphocytes # (A) 1.3 k/uL (1.0-4.8); Lymphocytes % (A) 11 %; MCH 29.1 pg (25.0-35.0); MCHC 32.8 g/dL (31.0-37.0); MCV 88.7 fL (80.0-100.0); Mean Platelet Volume 8.5; Monocytes # (A) 0.8 k/uL (0-1.0); Monocytes % (A) 7 %; Neutrophils # (A) 8.8 k/uL (1.3-7.7); Neutrophils % (A) 77 %; Platelet Count 348 k/uL (150-450); RDW 13.5 % (11.5-15.5); WBC 11.5 k/uL (3.8-10.6)
[2022-08-10] MEDS ORDERED: HYDROmorphone 0.5 MG/0.5 ML SYRINGE IVP STA (14:02)
[2022-08-10 14:15] LABS: Albumin 4.2 g/dL (3.5-5.0); Calcium 9.3 mg/dL (8.4-10.2); Magnesium 1.2 mg/dL (1.6-2.3); Potassium 4.7 mmol/L (3.5-5.1); Total Bilirubin 0.3 mg/dL (0.2-1.3); Total Protein 7.9 g/dL (6.3-8.2)
[2022-08-10 14:23] LABS: Partial Thromboplastin Time 45.2 sec (22.0-30.0)
[2022-08-10 14:36] LABS: Prothrombin Time 75.7 sec (9.0-12.0)
[2022-08-10 14:42] LABS: INR 7.5 (<1.2)
--- NOTE | 2022-08-10 15:11 | XR ---
EXAMINATION TYPE: XR chest 2V DATE OF EXAM: 08/10/2022 COMPARISON: 07/23/2022 HISTORY: 66-year-old female with weakness TECHNIQUE: AP and lateral views FINDINGS: Heart mildly enlarged. Aorta and pulmonary vasculature within normal limits. Mild interstitial promin ence has a chronic appearance. No consolidation or pleural effusion. IMPRESSION: Mild cardiomegaly and chronic appearing changes. No definite acute process.
--- NOTE | 2022-08-10 15:53 | US ---
EXAMINATION TYPE: US venous doppler duplex LE RT DATE OF EXAM: 08/10/2022 3:41 PM COMPARISON: Bilateral lower extremity venous ultrasound July 28, 2022 CLINICAL INDICATION: Female, 66 years old with history of edema; edema SIDE PERFORMED: Right TECHNIQUE: The lower extremity deep venous system is examined utilizing real time linear array sonog akil with graded compression, doppler sonography and color-flow sonography. VESSELS IMAGED: Common Femoral Vein Deep Femoral Vein Greater Saphenous Vein * Femoral Vein Popliteal Vein Small Saphenous Vein * Proximal Calf Veins (* superficial vessels) Right Leg: Negative for DVT Grayscale, color doppler, spectral doppler imaging performed of the deep veins of the right lower ext remity. There is normal flow, compressibility, vascular waveforms. IMPRESSION: No ultrasound evidence for acute DVT in the right lower extremity. No significant change from prior.
[2022-08-10] MEDS ORDERED: VANCOMYCIN IV PER PHARMACY 1 EACH MISC MISCELLANE PRN (16:53)
[2022-08-10] MEDS ORDERED: PIPERACILLIN-TAZOBACTAM 3.375 GM in SODIUM CHLORIDE 0.9% 100 ML IVPB STA (16:54)
[2022-08-10] MEDS ORDERED: VANCOMYCIN 1,500 MG in SODIUM CHLORIDE 0.9% 500 ML 500 ML IVPB STA (16:57)
[2022-08-10 17:18] LABS: Appearance,Urine Clear (Clear); Bilirubin,Urine Negative (Negative); Blood,Urine Negative (Negative); Color,Urine Yellow; Glucose,Urine (UA) Negative (Negative); Hyaline Casts,Urine 9 /lpf (0-2); Ketones,Urine Negative (Negative); Leukocyte Esterase,Urine Large (Negative); Mucus,Urine Rare /hpf; Nitrite,Urine Negative (Negative); PH, Urine 5.5 (5.0-8.0); Protein,Urine 1+ (Negative); RBC,Urine 3 /hpf (0-5); Specific Gravity,Urine 1.018 (1.001-1.035); Squamous Epithelial Cell,Urine 1 /hpf (0-4); Urobilinogen,Urine <2.0 mg/dL (<2.0); WBC,Urine 11 /hpf (0-5)
[2022-08-10] MEDS ORDERED: KETOROLAC 15 MG/ML 1 ML VIAL IVP STA (17:45)
[2022-08-10] MEDS: SODIUM CHLORIDE 0.9% 1,000 ML IV SCH ×2 (18:29→23:46)
[2022-08-11] MEDS: PIPERACILLIN-TAZOBACTAM 3.375 GM in SODIUM CHLORIDE 0.9% 100 ML IVPB SCH ×2 (00:12→08:32)
[2022-08-11 01:31] VITALS: TEMP 97.9
[2022-08-11] MEDS ORDERED: HYDROmorphone 0.5 MG/0.5 ML SYRINGE IVP STA (01:48)
[2022-08-11] MEDS ORDERED: VANCOMYCIN 1,500 MG in SODIUM CHLORIDE 0.9% 500 ML 500 ML IVPB SCH ×2 (06:00→12:00)
[2022-08-11] MEDS: SODIUM CHLORIDE 0.9% 1,000 ML IV SCH (06:52)
[2022-08-11] MEDS ORDERED: PHYTONADIONE ORAL 5 MG/5 ML ORAL.SYRG PO STA (08:19)
[2022-08-11] MEDS ORDERED: HYDROcodone/APAP 5-325MG 1 EACH TAB PO STA (08:22)
[2022-08-11] MEDS ORDERED: HYDROcodone/APAP 5-325MG 1 EACH TAB PO PRN (08:28)
[2022-08-11 08:52] VITALS: BP 139/97; PULSE 113; RESP 22
[2022-08-11] MEDS ORDERED: DEXTROSE 50% SYRINGE 50 ML IVP PRN ×4 (08:58→09:49)
[2022-08-11 09:02] LABS: Glucose,Whole Blood 170 mg/dL (70-110)
[2022-08-11 09:02] LABS: Glucose,Whole Blood 163 mg/dL (70-110)
--- NOTE | 2022-08-11 09:38 | P.GSCN ---
History of Present Illness Consult date: 08/11/22 Reason for Consult: Gangrene toes Requesting physician: Fareed Ayers History of present illness: This is a pleasant 66-year-old female with a past medical history including atrial fibrillation, peripheral arterial disease, diabetes mellitus, chronic right foot wound and hypertension who presented to the emergency department yesterday with complaints of weakness and not feeling well. She denied any fevers or chills. She follows with Dr. Reina for chronic peripheral arterial disease and dry gangrene of the right toes and foot. She also follows with the wound care center with Dr. Santillan however states she did not make her appointment. Patient has had multiple procedures with Dr. Gould on the right lower extremity, she recently established with Dr. Reina who is working her up for possible amputation of the right foot versus below the knee amputation which is scheduled for 08/24/2022. Patient is on Coumadin and Plavix, INR was 7.5 on admission. Receiving vitamin K 5 mg by mouth. Patient states she does have pain in her foot and toes. No drainage. She has been afebrile. She was started on IV Zosyn and vancomycin. Wound center consulted for local wound care. She underwent venous duplex of the right lower extremity with no evidence of DVT. Patient currently denies any shortness of breath or chest pain. She denies any fevers or chills at home, no nausea or vomiting. Does have discomfor t and pain in right foot. Again reports no drainage from toes or foot. She states she had a horrible night and was unable to sleep in the emergency department. She states she wants to go home. Admitting labs WBC 11.5 hemoglobin 11.9 hematocrit 36 platelet count 348,000 PT 75.7 INR 7.5 PTT 45.2 sodium 138 potassium 4.7 BUN 20 creatinine 0.9 glucose 184 lactic acid 4.2 with repeat of 1.9 Review of Systems A 14 point review systems was completed all pertinent positives and negatives as stated in the HPI. Past Medical History Past Medical History: Atrial Fibrillation, Diabetes Mellitus, Eye Disorder, Hyperlipidemia, Hypertension Additional Past Medical History / Comment(s): CATARACT, chronic foot wounds EF 35%, PAD, History of Any Multi-Drug Resistant Organisms: None Reported Past Surgical History: Back Surgery, Section Past Anesthesia/Blood Transfusion Reactions: No Reported Reaction Past Psychological History: No Psychological Hx Reported Smoking Status: Never smoker - Past Family History Father Family Medical History: Cancer Medications and Allergies Home Medications Medication Instructions Recorded Confirmed Type Insulin Detemir [Levemir Flexpen] 15 unit SQ BID 11/14/13 08/10/22 History metFORMIN HCL [Glucophage] 1,000 mg PO BID 11/14/13 08/10/22 History Acetaminophen Tab [Tylenol] 1,000 mg PO Q6HR PRN 07/23/22 08/10/22 History Atorvastatin [Lipitor] 40 mg PO DAILY 07/23/22 08/10/22 History Clopidogrel [Plavix] 75 mg PO DAILY 07/23/22 08/10/22 History DULoxetine HCL [Cymbalta] 30 mg PO DAILY 07/23/22 08/10/22 History Gabapentin 300 mg PO TID 07/23/22 08/10/22 History Losartan/Hydrochlorothiazide 1 tab PO DAILY 07/23/22 08/10/22 History [Losartan-Hctz 100-12.5 mg Tab] Warfarin [Coumadin] 2.5 mg PO MO 07/23/22 08/10/22 History Warfarin [Coumadin] 5 mg PO SUTUWETHFRSA 07/23/22 08/10/22 History traMADol HCL 25 mg PO BID PRN 07/23/22 08/10/22 History Cephalexin [Keflex] 500 mg PO TID #30 cap 07/30/22 08/10/22 Rx Metoprolol Succinate (ER) [Toprol 100 mg PO DAILY #30 tab 07/30/22 08/10/22 Rx XL] Spironolactone [Aldactone] 25 mg PO DAILY #30 tab 07/30/22 08/10/22 Rx Amiodarone [Cordarone] 200 mg PO DAILY 08/10/22 08/10/22 History Metoprolol Succinate (ER) [Toprol 50 mg PO HS 08/10/22 08/10/22 History Xl] Allergies Allergy/AdvReac Type Severity Reaction Status Date / Time morphine AdvReac Nausea Verified 08/10/22 15:21 Surgical - Exam Vital Signs Temp Pulse Resp BP Pulse Ox 98.1 F 115 H 18 127/78 96 08/10/22 12:27 08/10/22 12:27 08/10/22 12:27 08/10/22 12:27 08/10/22 12:27 General appearance: The patient is alert, oriented, appears in no acute dis tress. HET: Head is normocephalic and atraumatic. . Neck: Supple. Heart: Regular. Lungs: Equal expansion, normal respiratory effort. Abdomen: Soft, nontender, nondistended. Extremities: Right lower extremity with swelling, dry gangrene first, fourth and fifth toes and a long the lateral aspect of foot. Some noted redness on dorsal aspect of foot with good capillary refill and sensory motor intact. Neurological: No focal deficits. Strength and sensation are grossly intact. Results - Labs 08/10/22 13:22 08/10/22 13: Abnormal Lab Results - Last 24 Hours (Table) 08/10/22 08/10/22 08/10/22 Range/Units 13:22 13: 13:22 WBC 11.5 H (3.8-10.6) k/uL Neutrophils # 8.8 H (1.3-7.7) k/uL PT 75.7 H (9.0-12.0) sec INR 7.5 H* (<1.2) APTT 45.2 H (22.0-30.0) sec Chloride 97 L (98-107) mmol/L BUN 20 H (7-17) mg/dL Glucose 184 H (74-99) mg/dL Plasma Lactic Acid Armani (0.7-2.0) mmol/L Magnesium 1.2 L (1.6-2.3) mg/dL Urine Protein (Negative) Ur Leukocyte Esterase (Negative) Urine WBC (0-5) /hpf Hyaline Casts (0-2) /lpf Urine Mucus (None) /hpf 08/10/22 08/10/22 Range/Units 13: 16:02 WBC (3.8-10.6) k/uL Neutrophils # (1.3-7.7) k/uL PT (9.0-12.0) sec INR (<1.2) APTT (22.0-30.0) sec Chloride (98-107) mmol/L BUN (7-17) mg/dL Glucose (74-99) mg/dL Plasma Lactic Acid Armani 4.2 H* (0.7-2.0) mmol/L Magnesium (1.6-2.3) mg/dL Urine Protein 1+ H (Negative) Ur Leukocyte Esterase Large H (Negative) Urine WBC 11 H (0-5) /hpf Hyaline Casts 9 H (0-2) /lpf Urine Mucus Rare H (None) /hpf Diabetes panel 08/10/22 Range/Units 13:22 Sodium 138 (137-145) mmol/L Potassium 4.7 (3.5-5.1) mmol/L Chloride 97 L (98-107) mmol/L Carbon Dioxide 22 (22-30) mmol/L BUN 20 H (7-17) mg/dL Creatinine 0.90 (0.52-1.04) mg/dL Glucose 184 H (74-99) mg/dL Calcium 9.3 (8.4-10.2) mg/dL AST 25 (14-36) U/L ALT 18 (4-34) U/L Alkaline Phosphatase 57 (38-126) U/L Total Protein 7.9 (6.3-8.2) g/dL Albumin 4.2 (3.5-5.0) g/dL Thyroid panel 08/10/22 Range/Units 13:22 TSH 3.240 (0.465-4.680) mIU/L Calcium panel 08/10/22 Range/Units 13:22 Calcium 9.3 (8.4-10.2) mg/dL Albumin 4.2 (3.5-5.0) g/dL Pituitary panel 08/10/22 Range/Units 13:22 Sodium 138 (137-145) mmol/L Potassium 4.7 (3.5-5.1) mmol/L Chloride 97 L (98-107) mmol/L Carbon Dioxide 22 (22-30) mmol/L BUN 20 H (7-17) mg/dL Creatinine 0.90 (0.52-1.04) mg/dL Glucose 184 H (74-99) mg/dL Calcium 9.3 (8.4-10.2) mg/dL TSH 3.240 (0.465-4.680) mIU/L Adrenal panel 08/10/22 Range/Units 13:22 Sodium 138 (137-145) mmol/L Potassium 4.7 (3.5-5.1) mmol/L Chloride 97 L (98-107) mmol/L Carbon Dioxide 22 (22-30) mmol/L BUN 20 H (7-17) mg/dL Creatinine 0.90 (0.52-1.04) mg/dL Glucose 184 H (74-99) mg/dL Calcium 9.3 (8.4-10.2) mg/dL Total Bilirubin 0.3 (0.2-1.3) mg/dL AST 25 (14-36) U/L ALT 18 (4-34) U/L Alkaline Phosphatase 57 (38-126) U/L Total Protein 7.9 (6.3-8.2) g/dL Albumin 4.2 (3.5-5.0) g/dL Assessment and Plan Assessment: 1. Right lower extremity peripheral vascular disease 2. Elda 5 with dry toe gangrene 3. Supratherapeutic INR 4. Atrial fibrillation on Coumadin 5. Previous revascularization of right lower extremity 6. Diabetes mellitus Plan: Patient is scheduled for outpatient amputation of right foot with TMA on 08/24/[address] Reina. Patient has dry gangrene without change from previous. No plans on surgical intervention at this time. As patient has dry gangrene and no sign of infection do not believe patient will need IV antibiotics however will defer that to the medical team that ordered. Continue with recommendations for local wound care from wound center. Continue medical management. Thank you for this consultation, we will continue to follow. The impression and plan of care has been dictated as directed. Dr. Early I performed a history and examination of this patient, discussed the same with the dictator. I agree with the dictator's note ,documented as a scribe. Any additional findings or plans will be noted.
--- NOTE | 2022-08-11 09:45 | P.CONS ---
History of Present Illness - Reason for Consult Consult date: 08/11/22 wound care - History of Present Illness This is a 66-year-old female known to the wound care center with dry gangrene to the right great toe the right lateral foot including the fourth and fifth digit. Patient is being evaluated for possible TMA or below the knee amputation. Patient has been utilizing silver foam to the site. Due to the pain that the dressing causes she has no dressing on at this time. Patient would prefer to have no dressing as long as there is no drainage. Patient is agreeable to the plan of care of applying the dressing only if there is drainage noted. Review Of Systems: Constitutional: No fever, no chills, no night sweats. No weight change. No weakness, fatigue or lethargy. No daytime sleepiness. Integumentary:reports wounds, no lesions. No rash or pruritus. No unusual bruising. No change in hair or nails. Physical exam: General Appearance: Alert, cooperative, no distress, appears stated age. Skin: See HPI all other Skin color, texture, tugor normal, no rashes or lesions. Neurologic: Alert oriented x3 Assessment: 1. Atherosclerosis of grand [place] arteries of extremities with gangrene right leg 2. Diabetes with foot ulceration 3. Peripheral vascular disease Plan: 1. Awaiting surgical decision. Patient has been utilizing silver foam to the site however due to discomfort and no drainage noted dressing at this time. Patient will continue to follow up in the wound care center upon discharge. Thank you for the consultation any questions please contact the wound care center DNP note has been reviewed and discussed with Dr. Garcia and the impression and plan of care has been directed as dictated. Past Medical History Past Medical History: Atrial Fibrillation, Diabetes Mellitus, Eye Disorder, Hyperlipidemia, Hypertension Additional Past Medical History / Comment(s): CATARACT, chronic foot wounds EF 35%, PAD, History of Any Multi-Drug Resistant Organisms: None Reported Past Surgical History: Back Surgery, Section Past Anesthesia/Blood Transfusion Reactions: No Reported Reaction Past Psychological History: No Psychological Hx Reported Smoking Status: Never smoker - Past Family History Father Family Medical History: Cancer Medications and Allergies Home Medications Medication Instructions Recorded Confirmed Type Insulin Detemir [Levemir Flexpen] 15 unit SQ BID 11/14/13 08/10/22 History metFORMIN HCL [Glucophage] 1,000 mg PO BID 11/14/13 08/10/22 History Acetaminophen Tab [Tylenol] 1,000 mg PO Q6HR PRN 07/23/22 08/10/22 History Atorvastatin [Lipitor] 40 mg PO DAILY 07/23/22 08/10/22 History Clopidogrel [Plavix] 75 mg PO DAILY 07/23/22 08/10/22 History DULoxetine HCL [Cymbalta] 30 mg PO DAILY 07/23/22 08/10/22 History Gabapentin 300 mg PO TID 07/23/22 08/10/22 History Losartan/Hydrochlorothiazide 1 tab PO DAILY 07/23/22 08/10/22 History [Losartan-Hctz 100-12.5 mg Tab] Warfarin [Coumadin] 2.5 mg PO MO 07/23/22 08/10/22 History Warfarin [Coumadin] 5 mg PO SUTUWETHFRSA 07/23/22 08/10/22 History traMADol HCL 25 mg PO BID PRN 07/23/22 08/10/22 History Cephalexin [Keflex] 500 mg PO TID #30 cap 07/30/22 08/10/22 Rx Metoprolol Succinate (ER) [Toprol 100 mg PO DAILY #30 tab 07/30/22 08/10/22 Rx XL] Spironolactone [Aldactone] 25 mg PO DAILY #30 tab 07/30/22 08/10/22 Rx Amiodarone [Cordarone] 200 mg PO DAILY 08/10/22 08/10/22 History Metoprolol Succinate (ER) [Toprol 50 mg PO HS 08/10/22 08/10/22 History Xl] Allergies Allergy/AdvReac Type Severity Reaction Status Date / Time morphine AdvReac Nausea Verified 08/10/22 15:21 Physical Exam Vitals: Vital Signs Temp Pulse Pulse Resp BP BP Pulse Ox 08/11/22 08:00 97.9 F 113 H 22 139/97 98 08/11/22 04:00 97 14 140/88 95 08/11/22 01:00 97.9 F 98 18 151/107 95 08/10/22 21:00 90 16 140/82 96 08/10/22 19:54 101 H 16 132/80 97 08/10/22 15:49 116 H 18 141/81 99 08/10/22 12:27 98.1 F 115 H 18 127/78 96 Results CBC & Chem 7: 08/10/22 13:22 08/10/22 13:22 Labs: Abnormal Lab Results - Last 24 Hours (Table) 08/10/22 08/10/22 08/10/22 Range/Units 13:22 13:22 13:22 WBC 11.5 H (3.8-10.6) k/uL Neutrophils # 8.8 H (1.3-7.7) k/uL PT 75.7 H (9.0-12.0) sec INR 7.5 H* (<1.2) APTT 45.2 H (22.0-30.0) sec Chloride 97 L (98-107) mmol/L BUN 20 H (7-17) mg/dL Glucose 184 H (74-99) mg/dL POC Glucose (mg/dL) (70-110) mg/dL Plasma Lactic Acid Armani (0.7-2.0) mmol/L Magnesium 1.2 L (1.6-2.3) mg/dL Urine Protein (Negative) Ur Leukocyte Esterase (Negative) Urine WBC (0-5) /hpf Hyaline Casts (0-2) /lpf Urine Mucus (None) /hpf 08/10/22 08/10/22 08/11/22 Range/Units 13:22 16:02 08:27 WBC (3.8-10.6) k/uL Neutrophils # (1.3-7.7) k/uL PT (9.0-12.0) sec INR (<1.2) APTT (22.0-30.0) sec Chloride (98-107) mmol/L BUN (7-17) mg/dL Glucose (74-99) mg/dL POC Glucose (mg/dL) 163 H (70-110) mg/dL Plasma Lactic Acid Armani 4.2 H* (0.7-2.0) mmol/L Magnesium (1.6-2.3) mg/dL Urine Protein 1+ H (Negative) Ur Leukocyte Esterase Large H (Negative) Urine WBC 11 H (0-5) /hpf Hyaline Casts 9 H (0-2) /lpf Urine Mucus Rare H (None) /hpf 08/11/22 Range/Units 08:44 WBC (3.8-10.6) k/uL Neutrophils # (1.3-7.7) k/uL PT (9.0-12.0) sec INR (<1.2) APTT (22.0-30.0) sec Chloride (98-107) mmol/L BUN (7-17) mg/dL Glucose (74-99) mg/dL POC Glucose (mg/dL) 170 H (70-110) mg/dL Plasma Lactic Acid Armani (0.7-2.0) mmol/L Magnesium (1.6-2.3) mg/dL Urine Protein (Negative) Ur Leukocyte Esterase (Negative) Urine WBC (0-5) /hpf Hyaline Casts (0-2) /lpf Urine Mucus (None) /hpf Assessment and Plan (1) Atherosclerosis of [place] arteries of extremities with gangrene, right leg Current Visit: No Status: Acute Code(s): I70.261 - ATHSCL BURNS PAIUTE ARTERIES OF EXTREMITIES W GANGRENE, RIGHT LEG SNOMED Code(s): 780789650 (2) Gangrene of toe of right foot Current Visit: No Status: Acute Code(s): I96 - GANGRENE, NOT ELSEWHERE CLASSIFIED SNOMED Code(s): 87491605421587282 (3) Type 2 diabetes mellitus with foot ulcer Current Visit: No Status: Acute Code(s): E11.621 - TYPE 2 DIABETES MELLITUS WITH FOOT ULCER; L97.509 - NON-PRESSURE CHRONIC ULCER OTH PRT UNSP FOOT W UNSP SEVERITY SNOMED Code(s): 802298371
[2022-08-11] MEDS ORDERED: traMADol 50 MG TAB PO PRN (09:49)
[2022-08-11] MEDS ORDERED: ACETAMINOPHEN TAB 500 MG TAB PO PRN (09:49)
[2022-08-11] MEDS ORDERED: INSULIN DETEMIR (LEVEMIR) 100 UNIT/ML SYR SQ SCH (10:00)
[2022-08-11] MEDS ORDERED: AMIODARONE 200 MG TAB PO SCH (10:00)
[2022-08-11] MEDS ORDERED: DULoxetine HCL 30 MG CAPSULE.DR PO SCH (10:00)
[2022-08-11] MEDS ORDERED: GABAPENTIN 300 MG CAP PO SCH (10:00)
[2022-08-11] MEDS ORDERED: METOPROLOL SUCCINATE (ER) 100 MG TAB.ER.24H PO SCH (10:00)
[2022-08-11] MEDS: ATORVASTATIN 40 MG TAB PO SCH ×2 (10:37→10:39)
[2022-08-11] MEDS ORDERED: INSULIN ASPART (NovoLOG) 100 UNIT/ML VIAL SQ SCH (12:30)
--- NOTE | 2022-08-11 16:48 | P.HPIM ---
History of Present Illness H&P Date: 08/11/22 Chief Complaint: Not feeling well This is a very pleasant 66-year-old patient, follows with Dr. Sumi Brewer. Chronic stable medical conditions include PAD, diabetes mellitus type 2, atrial fibrillation, hyperlipidemia, essential hypertension, chronic congestive heart failure from systolic dysfunction EF 35-40%, mitral regurgitation, mild CAD. Patient was recently discharged from the hospital on July 31. Patient's had wounds to the right toe since January. She has gangrene. Also follows at the wound care center by Dr. Santillan. She scheduled for surgery on 08/24/[address] Reina from vascular. Patient is on Coumadin and Plavix. At her baseline she runs a ventricular rate with atrial fibrillation off about 119. He does follow with Dr. Lanier. We just in the office about couple of days ago. Patient now presents to the ER after the daughter felt patient was looking a bit more pain. She denies any fever and chills. Her pain at home and the foot is fairly well controlled. Appetite is fair. No change in bowel pattern. No urinary symptoms. The wound does not look any different. In the ER was found to elevated INR. No bleeding. Given 5 mg oral vitamin K. Review of systems: GEN.: Tired EYES: None HEENT: None NECK: None RESPIRATORY: None CARDIOVASCULAR: None GASTROINTESTINAL: None GENITOURINARY: None MUSCULOSKELETAL: Joint pains LYMPHATICS: None HEMATOLOGICAL: None PSYCHIATRY: None NEUROLOGICAL: None Past medical history to include: Right foot wound, with gangrene, PAD, diabetes mellitus type 2, persistent atrial fibrillation, hyperlipidemia, essential hypertension, CHF EF 35-40%, [id number] MR, mild CAD Social history: Lives with her . Nonsmoker. Alcohol occasionally. On examination: VITAL SIGNS: 97.9, 101, 16, 132/80, 97% room air upon presentation GENERAL APPEARANCE: Reclining in bed, awake comfortable HEENT: Normal external appearance of nose and ear. Oral cavity normal EYES: Pupils equal. Conjunctiva normal. NECK: JVD not raised. Mass not palpable. RESPIRATORY: Respiratory effort normal. Lungs clear to auscultation. CARDIOVASCULAR: Heart sounds irregular No edema. ABDOMEN: Soft. Liver and spleen not palpable. No tenderness. No mass palpable. PSYCHIATRY: Alert and oriented x3. Mood and affect normal. Right lower extremity: Dry gangrene of the first fourth and fifth toe. No area for any redness. INVESTIGATIONS, reviewed in the clinical context: White count 11.5 hemoglobin 11.9 platelets 348 INR 7.5 sodium 138 potassium 4.7 BUN 20 creatinine 0.9. Lactic acid 4.2 TSH 3.2 EKG tracing personally reviewed by me-atrial fibrillation rate 118 Chest x-ray film personally reviewed by me-cardiomegaly. Ultrasound venous Doppler: Left lower extremity/negative for DVT Previous testing Cardiac catheterization: July 28: Mild CAD with 30-40% RCA, 40% mid circumflex, 80% diagonal 1 and 80% diagonal 2 stenosis. 2-D echocardiogram [July 2022]: EF 35-40%. [id number] MR. 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 Reina. Patient scheduled for surgery on August 24. Currently no new symptoms. Per vascular no carotid intervention. Pain control -Patient has been on outpatient Keflex from last admission. Currently no evidence of any worsening infection. No fever no chills. -Peripheral arterial disease Coumadin. Plavix. -Diabetes mellitus type 2, chronically on insulin Levemir. Follow Accu-Cheks -Persistent atrial fibrillation, rate into 1 teens. Amiodarone Coumadin. Metoprolol. Patient does follow with Dr. Lanier. He is a very patient's heart rate is baseline runs a bit high. -Hyperlipidemia Lipitor -Coumadin toxicity with no evidence of bleeding Vitamin K 5 mg by mouth 1 -Essential hypertension Losartan hydrochlorothiazide. Toprol-XL. -Chronic congestive heart failure from systolic dysfunction EF 35-40%. Toprol-XL. Cozaar. Aldactone. -Mild to moderate MR - Mild CAD with 30-40% RCA, 40% mid circumflex, 80% diagonal 1 and 80% diagonal 2 stenosis. Aspirin, Lipitor. Lopressor Care was discussed with the patient and her daughter the bedside. Patient initially given IV vancomycin the ER. Hold Coumadin. Vitamin K 5 mg by mouth given. Continue home medications. Will discuss with vascular. Past Medical History Past Medical History: Atrial Fibrillation, Diabetes Mellitus, Eye Disorder, Hyperlipidemia, Hypertension Additional Past Medical History / Comment(s): CATARACT, chronic foot wounds EF 35%, PAD, History of Any Multi-Drug Resistant Organisms: None Reported Past Surgical History: Back Surgery, Section Past Anesthesia/Blood Transfusion Reactions: No Reported Reaction Past Psychological History: No Psychological Hx Reported Smoking Status: Never smoker - Past Family History Father Family Medical History: Cancer Medications and Allergies Home Medications Medication Instructions Recorded Confirmed Type Insulin Detemir [Levemir Flexpen] 15 unit SQ BID 11/14/13 08/10/22 History metFORMIN HCL [Glucophage] 1,000 mg PO BID 11/14/13 08/10/22 History Acetaminophen Tab [Tylenol] 1,000 mg PO Q6HR PRN 07/23/22 08/10/22 History Atorvastatin [Lipitor] 40 mg PO DAILY 07/23/22 08/10/22 History Clopidogrel [Plavix] 75 mg PO DAILY 07/23/22 08/10/22 History DULoxetine HCL [Cymbalta] 30 mg PO DAILY 07/23/22 08/10/22 History Gabapentin 300 mg PO TID 07/23/22 08/10/22 History Losartan/Hydrochlorothiazide 1 tab PO DAILY 07/23/22 08/10/22 History [Losartan-Hctz 100-12.5 mg Tab] Warfarin [Coumadin] 2.5 mg PO MO 07/23/22 08/10/22 History Warfarin [Coumadin] 5 mg PO SUTUWETHFRSA 07/23/22 08/10/22 History traMADol HCL 25 mg PO BID PRN 07/23/22 08/10/22 History Cephalexin [Keflex] 500 mg PO TID #30 cap 07/30/22 08/10/22 Rx Metoprolol Succinate (ER) [Toprol 100 mg PO DAILY #30 tab 07/30/22 08/10/22 Rx XL] Spironolactone [Aldactone] 25 mg PO DAILY #30 tab 07/30/22 08/10/22 Rx Amiodarone [Cordarone] 200 mg PO DAILY 08/10/22 08/10/22 History Metoprolol Succinate (ER) [Toprol 50 mg PO HS 08/10/22 08/10/22 History XL] Allergies Allergy/AdvReac Type Severity Reaction Status Date / Time morphine AdvReac Nausea Verified 08/10/22 15:21 Physical Exam Vitals: Vital Signs Temp Pulse Pulse Resp BP BP Pulse Ox 08/11/22 08:00 97.9 F 113 H 22 139/97 98 08/11/22 04:00 97 14 140/88 95 08/11/22 01:00 97.9 F 98 18 151/107 95 08/10/22 21:00 90 16 140/82 96 08/10/22 19:54 101 H 16 132/80 97 08/10/22 15:49 116 H 18 141/81 99 08/10/22 12:27 98.1 F 115 H 18 127/78 96 Results CBC & Chem 7: 08/10/22 13:22 08/10/22 13:22 Labs: Abnormal Lab Results - Last 24 Hours (Table) 08/10/22 08/10/22 08/10/22 Range/Units 13:22 13:22 13:22 WBC 11.5 H (3.8-10.6) k/uL Neutrophils # 8.8 H (1.3-7.7) k/uL PT 75.7 H (9.0-12.0) sec INR 7.5 H* (<1.2) APTT 45.2 H (22.0-30.0) sec Chloride 97 L (98-107) mmol/L BUN 20 H (7-17) mg/dL Glucose 184 H (74-99) mg/dL POC Glucose (mg/dL) (70-110) mg/dL Plasma Lactic Acid Armani (0.7-2.0) mmol/L Magnesium 1.2 L (1.6-2.3) mg/dL Urine Protein (Negative) Ur Leukocyte Esterase (Negative) Urine WBC (0-5) /hpf Hyaline Casts (0-2) /lpf Urine Mucus (None) /hpf 08/10/22 08/10/22 08/11/22 Range/Units 13:22 16:02 08:27 WBC (3.8-10.6) k/uL Neutrophils # (1.3-7.7) k/uL PT (9.0-12.0) sec INR (<1.2) APTT (22.0-30.0) sec Chloride (98-107) mmol/L BUN (7-17) mg/dL Glucose (74-99) mg/dL POC Glucose (mg/dL) 163 H (70-110) mg/dL Plasma Lactic Acid Armani 4.2 H* (0.7-2.0) mmol/L Magnesium (1.6-2.3) mg/dL Urine Protein 1+ H (Negative) Ur Leukocyte Esterase Large H (Negative) Urine WBC 11 H (0-5) /hpf Hyaline Casts 9 H (0-2) /lpf Urine Mucus Rare H (None) /hpf 08/11/22 Range/Units 08:44 WBC (3.8-10.6) k/uL Neutrophils # (1.3-7.7) k/uL PT (9.0-12.0) sec INR (<1.2) APTT (22.0-30.0) sec Chloride (98-107) mmol/L BUN (7-17) mg/dL Glucose (74-99) mg/dL POC Glucose (mg/dL) 170 H (70-110) mg/dL Plasma Lactic Acid Armani (0.7-2.0) mmol/L Magnesium (1.6-2.3) mg/dL Urine Protein (Negative) Ur Leukocyte Esterase (Negative) Urine WBC (0-5) /hpf Hyaline Casts (0-2) /lpf Urine Mucus (None) /hpf
--- NOTE | 2022-08-11 16:52 | P.DS ---
Providers Date of admission: 08/10/22 17:04 Expected date of discharge: 08/11/22 Attending physician: Scotty William Consults: 08/10/22 16:57 Consult Physician Urgent Consulting Provider: Terrell Early Consult Reason/Comments: Gangrene toes Do you want consulting provider notified?: Yes Primary care physician: Sumi Brewer [facility] Course: Chief Complaint: Not feeling well This is a very pleasant 66-year-old patient, follows with Dr. Sumi Brewer. Chronic stable medical conditions include PAD, diabetes mellitus type 2, atrial fibrillation, hyperlipidemia, essential hypertension, chronic congestive heart failure from systolic dysfunction EF 35-40%, mitral regurgitation, mild CAD. Patient was recently discharged from the hospital on July 31. Patient's had wounds to the right toe since January. She has gangrene. Also follows at the wound care center by Dr. Santillan. She scheduled for surgery on 08/24/[address] Reina from vascular. Patient is on Coumadin and Plavix. At her baseline she runs a ventricular rate with atrial fibrillation off about 119. He does follow with Dr. Lanier. We just in the office about couple of days ago. Patient now presents to the ER after the daughter felt patient was looking a bit more pain. She denies any fever and chills. Her pain at home and the foot is fairly well controlled. Appetite is fair. No change in bowel pattern. No urinary symptoms. The wound does not look any different. In the ER was found to elevated INR. No bleeding. Given 5 mg oral vitamin K. I discussed with them. HERMELINDO Mancia from vascular. Patient will follow-up and keep her scheduled for surgery with Dr. Reina. Spoke to the patient and the daughter the bedside. Their preference is obviously a follow-up with Dr. Reina for the surgery. Vitamin K 5 mg was given. Discussed that patient to take Coumadin 2.5 mg from tomorrow and have INR checked next Sunday. Further dosing depending on INR.. Patient's pain is well controlled at home. Several questions were answered. Daughter is also looking into some extra help at home. Current time no obvious evidence of infection. Very slight elevated white count. No fever no chills. Eating well. In fact patient looked a bit better than what she left the hospital. Cardiology is elevated about patient's heart rate being slightly above 100 at her baseline. Past medical history to include: Right foot wound, with gangrene, PAD, diabetes mellitus type 2, persistent atrial fibrillation, hyperlipidemia, essential hypertension, CHF EF 35-40%, ghrx-ej-ctyhqijl MR, mild CAD Social history: Lives with her . Nonsmoker. Alcohol occasionally. On examination: VITAL SIGNS: 97.9, 113, 22, 139/97, 98% room air GENERAL APPEARANCE: Reclining in bed, awake comfortable HEENT: Normal external appearance of nose and ear. Oral cavity normal EYES: Pupils equal. Conjunctiva normal. NECK: JVD not raised. Mass not palpable. RESPIRATORY: Respiratory effort normal. Lungs clear to auscultation. CARDIOVASCULAR: Heart sounds irregular No edema. ABDOMEN: Soft. Liver and spleen not palpable. No tenderness. No mass palpable. PSYCHIATRY: Alert and oriented x3. Mood and affect normal. Right lower extremity: Dry gangrene of the first fourth and fifth toe. No area for any redness. INVESTIGATIONS, reviewed in the clinical context: White count 11.5 hemoglobin 11.9 platelets 348 INR 7.5 sodium 138 potassium 4.7 BUN 20 creatinine 0.9. Lactic acid 4.2 TSH 3.2 EKG tracing personally reviewed by me-atrial fibrillation rate 118 Chest x-ray film personally reviewed by me-cardiomegaly. Ultrasound venous Doppler: Left lower extremity/negative for DVT Previous testing Cardiac catheterization: July 28: Mild CAD with 30-40% RCA, 40% mid circumflex, 80% diagonal 1 and 80% diagonal 2 stenosis. 2-D echocardiogram [July 2022]: EF 35-40%. [id number] MR. 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 Reina. Patient scheduled for surgery on August 24. Currently no new symptoms. Per vascular no carotid intervention. Pain control -Patient has been on outpatient Keflex from last admission. Currently no evidence of any worsening infection. No fever no chills. -Peripheral arterial disease Coumadin. Plavix. -Diabetes mellitus type 2, chronically on insulin Levemir. Follow Accu-Cheks -Persistent atrial fibrillation, rate into 1 teens. Amiodarone Coumadin. Metoprolol. Patient does follow with Dr. Lanier. He is a very patient's heart rate is baseline runs a bit high. -Hyperlipidemia Lipitor -Coumadin toxicity with no evidence of bleeding Vitamin K 5 mg by mouth 1. Resume Coumadin 2.5 mg daily at bedtime from tomorrow. Discussed with daughter in length. Check INR next Sunday. -Essential hypertension Losartan hydrochlorothiazide. Toprol-XL. -Chronic congestive heart failure from systolic dysfunction EF 35-40%. Toprol-XL. Cozaar. Aldactone. -Mild to moderate MR - Mild CAD with 30-40% RCA, 40% mid circumflex, 80% diagonal 1 and 80% diagonal 2 stenosis. Aspirin, Lipitor. Lopressor Disposition: Home Plan - Discharge Summary New Discharge Prescriptions: Continue Insulin Detemir [Levemir Flexpen] 15 unit SQ BID metFORMIN HCL [Glucophage] 1,000 mg PO BID Warfarin [Coumadin] 5 mg PO SUTUWETHFRSA Atorvastatin [Lipitor] 40 mg PO DAILY traMADol HCL 25 mg PO BID PRN PRN Reason: Pain Warfarin [Coumadin] 2.5 mg PO MO Clopidogrel [Plavix] 75 mg PO DAILY DULoxetine HCL [Cymbalta] 30 mg PO DAILY Cephalexin [Keflex] 500 mg PO TID #30 cap Amiodarone [Cordarone] 200 mg PO DAILY Metoprolol Succinate (ER) [Toprol XL] 50 mg PO HS Losartan/Hydrochlorothiazide [Losartan-Hctz 100-12.5 mg Tab] 1 tab PO DAILY Gabapentin 300 mg PO TID Acetaminophen Tab [Tylenol] 1,000 mg PO Q6HR PRN PRN Reason: Pain Or Fever > 100.5 Spironolactone [Aldactone] 25 mg PO DAILY #30 tab Metoprolol Succinate (ER) [Toprol XL] 100 mg PO DAILY #30 tab Discharge Medication List Insulin Detemir [Levemir Flexpen] 15 unit SQ BID 11/14/13 [History] metFORMIN HCL [Glucophage] 1,000 mg PO BID 11/14/13 [History] Acetaminophen Tab [Tylenol] 1,000 mg PO Q6HR PRN 07/23/22 [History] Atorvastatin [Lipitor] 40 mg PO DAILY 07/23/22 [History] Clopidogrel [Plavix] 75 mg PO DAILY 07/23/22 [History] DULoxetine HCL [Cymbalta] 30 mg PO DAILY 07/23/22 [History] Gabapentin 300 mg PO TID 07/23/22 [History] Losartan/Hydrochlorothiazide [Losartan-Hctz 100-12.5 mg Tab] 1 tab PO DAILY [History] Warfarin [Coumadin] 2.5 mg PO MO 07/23/22 [History] Warfarin [Coumadin] 5 mg PO SUTUWETHFRSA 07/23/22 [History] traMADol HCL 25 mg PO BID PRN 07/23/22 [History] Cephalexin [Keflex] 500 mg PO TID #30 cap 07/30/22 [Rx] Metoprolol Succinate (ER) [Toprol XL] 100 mg PO DAILY #30 tab 07/30/22 [Rx] Spironolactone [Aldactone] 25 mg PO DAILY #30 tab 07/30/22 [Rx] Amiodarone [Cordarone] 200 mg PO DAILY 08/10/22 [History] Metoprolol Succinate (ER) [Toprol XL] 50 mg PO HS 08/10/22 [History] Follow up Appointment(s)/Referral(s): Quinten Lanier DO [STAFF PHYSICIAN] - 1 Week Cathleen Reina DO [STAFF PHYSICIAN] - 1 Week Sumi Brewer MD [Primary Care Provider] - 1-2 days Patient Instructions/Handouts: Gangrene (DC) Discharge Disposition: HOME SELF-CARE
[2022-08-11] MEDS ORDERED: ATORVASTATIN 40 MG TAB PO SCH (21:00)
[2022-08-11] MEDS ORDERED: METOPROLOL SUCCINATE (ER) 50 MG TAB.ER.24H PO SCH (21:00)
== END 2022-08-11 11:58 | disposition home or self-care (01) ==
LOC: EC 12:20 → INTOOBSV 17:04 → 3SCARD 17:04 → UNDODISIN 08-11 11:58 → 3SCARD 08-11 12:22
PROVIDERS: ADMIT Hospitalist; ATTEND Hospitalist
DX: E11.52 Type 2 diabetes mellitus with diabetic peripheral angiopathy with gangrene (principal); I70.261 Atherosclerosis of native arteries of extremities with gangrene, right leg; E11.621 Type 2 diabetes mellitus with foot ulcer; L97.509 Non-pressure chronic ulcer of other part of unspecified foot with unspecified severity; E87.20 Acidosis, unspecified; I48.19 Other persistent atrial fibrillation; I11.0 Hypertensive heart disease with heart failure; I50.22 Chronic systolic (congestive) heart failure; I25.10 Atherosclerotic heart disease of native coronary artery without angina pectoris; Z79.899 Other long term (current) drug therapy; R79.1 Abnormal coagulation profile; T45.515A Adverse effect of anticoagulants, initial encounter; E78.5 Hyperlipidemia, unspecified; I34.0 Nonrheumatic mitral (valve) insufficiency; H26.9 Unspecified cataract; Z79.01 Long term (current) use of anticoagulants; Z79.02 Long term (current) use of antithrombotics/antiplatelets; Z79.4 Long term (current) use of insulin; Z79.84 Long term (current) use of oral hypoglycemic drugs; Z88.5 Allergy status to narcotic agent; Z98.891 History of uterine scar from previous surgery; Z98.890 Other specified postprocedural states; Z80.9 Family history of malignant neoplasm, unspecified
CPT/HCPCS: 96376; 96361; 96365; 96366 ×2; 96367; 96375; 99285; 36415; 93005; 80053; 83605; 83735; 84443; 84484; 85025; 85610; 85730; 81001; 71046; 93971; G0378 ×2; J2543 ×2; J3370; J1885; J1170 ×2; 96368

== ENCOUNTER 2022-08-24 10:21 | Inpatient (IN) | payer OTHER ==
[2022-08-22 10:22] VITALS: BMI 30.5
[~2022-08-24 10:21] MED LIST: DEXAMETHASONE SOD PHOSPHATE 4 MG/ML 1 ML VIAL IV ONE; LIDOCAINE 1% (10MG/ML) FOR IV START INTRADERMA PRN; MIDAZOLAM 2 MG/2 ML VIAL IV PRN; ONDANSETRON 4 MG/2 ML VIAL IVP ONE
[2022-08-24] MEDS: LACTATED RINGERS 1,000 ML IV SCH ×2 (11:00→21:33)
[2022-08-24 11:19] LABS: Glucose,Whole Blood 177 mg/dL (70-110)
[2022-08-24 11:26] LABS: INR 1.5 (<1.2); Partial Thromboplastin Time 26.9 sec (22.0-30.0); Prothrombin Time 15.1 sec (9.0-12.0)
[2022-08-24] MEDS ORDERED: fentaNYL (PF) 50 MCG/ML 2 ML AMP ONE (12:34)
[2022-08-24] MEDS ORDERED: NEOSTIGMINE 1 MG/ML 10 ML VIAL ONE (12:34)
[2022-08-24] MEDS ORDERED: GLYCOPYRROLATE 0.2 MG/ML 2 ML VIAL ONE (12:34)
[2022-08-24] MEDS ORDERED: LIDOCAINE 2% INJ 20 MG/ML (2 ML VIAL) ONE (12:34)
[2022-08-24] MEDS ORDERED: ETOMIDATE 2 MG/ML 10 ML VIAL ONE (12:34)
[2022-08-24] MEDS ORDERED: SUCCINYLCHOLINE CHLORIDE 200 MG/10 ML VIAL IV ONE (12:34)
[2022-08-24] MEDS ORDERED: ROCURONIUM 10 MG/ML (5 ML VIAL) IV ONE (12:34)
[2022-08-24] MEDS ORDERED: ePHEDrine 50 MG/ML 1 ML VIAL ONE (12:34)
[2022-08-24] MEDS ORDERED: PHENYLEPHRINE-0.9% NACL SYG 1,000 MCG/10 ML SYRINGE ONE (12:34)
[2022-08-24] MEDS ORDERED: HYDROmorphone (PF) 1 MG/ML ONE (12:34)
[2022-08-24] MEDS ORDERED: MIDAZOLAM 2 MG/2 ML VIAL ONE (12:34)
[2022-08-24] MEDS ORDERED: ceFAZolin 2 GM in SODIUM CHLORIDE 0.9% 500 ML 500 ML IRRIGATION ONE (13:01)
[2022-08-24] MEDS ORDERED: LACTATED RINGERS 1,000 ML IV ONE (14:06)
--- NOTE | 2022-08-24 14:25 | P.PN ---
Progress Note - Text Progress Note Date: 08/24/22 Patient seen and examined again today, continues to have gangrene of her right foot, worsening on the lateral portion. It had a long time to think about it and decided she would rather go forward with a below-knee amputation rather than attempted transmetatarsal amputation with significant prolonged wound healing and wound VAC. I think this is reasonable. We will plan for this today. She has previously been cleared for surgical intervention by cardiology.
--- NOTE | 2022-08-24 14:28 | P.OP ---
Date of Procedure: 08/24/22 Description of Procedure: PREOPERATIVE DIAGNOSIS: Dry gangrene right lower extremity, severe peripheral vascular disease, previous attempted endovascular procedure with subsequent trash foot. POSTOPERATIVE DIAGNOSIS: Same. OPERATION: Right below knee amputation. SURGEON: Cathleen Reina DO CARCASS WASHER: Fern. ANESTHESIA: General ESTIMATED BLOOD LOSS: 100 mL SPECIMENS REMOVED: Right lower extremity COMPLICATIONS: None CONDITION: Stable to recovery FINDINGS AND INDICATIONS: Patient is a 66-year-old female who presents with right lower extremity dry gangrene after attempted endovascular intervention. At the time of the intervention she developed significant patchy areas of gangrenous changes to her right lower extremity and had worsened gangrene of her toes following this. She initially was thinking about undergoing attempted transmetatarsal indication prolonged healing however has decided to go forward with a below-knee amputation given the risks and options. Risks and benefits were discussed, she's feeling understood and was willing to proceed. PROCEDURE IN DETAIL: The patient was brought to the operating room, the operative leg was prepped and draped in the usual sterile manner. 10 cm below the tibial plateau was marked. The calf circumference was measured. Two thirds was utilized for the anterior incision, one third was utilized to create the flap. The incision was marked. The incision was deepened through the subcutaneous tissue and fascia to the level of the bone. The fascia was transected around the level of the incision. Anterior compartment muscles were divided and visualized to the tibial vessels which were suture ligated with 2-0 silk. Then the lateral compartment muscles were divided. Dissection was carried down to the level of the bone. The periosteal elevator was used and the tibia was freed from its periosteal tissues. The tibia was divided with an oscillating saw. The same was done of the fibula, approximately 1-1/2-2 cm more proximal to the tibia itself. The posterior flap was created with an amputation knife. Bleeding was controlled with suture ligation of the vessels. Electrocautery was also used for hemostasis. The specimen was removed. The wound was copiously irrigated. The tibia and fibula were smoothed with a rasp. 2-0 and 3-0 Vicryl was utilized to approximate the fascia. The skin was reapproximated with josé. The incsion was cleansed and a dressing was placed. The patient was extubated and transferred to PACU in stable condition having tolerated the procedure well
[2022-08-24] MEDS ORDERED: diazePAM 2 MG TAB PO PRN (14:30)
[2022-08-24 14:35] LABS: Glucose,Whole Blood 167 mg/dL (70-110)
[2022-08-24] MEDS: HYDROmorphone 0.5 MG/0.5 ML SYRINGE IVP PRN ×4 (15:16→23:22)
[2022-08-24] MEDS ORDERED: SODIUM CHLORIDE 0.9% 1,000 ML IV ONE ×2 (15:58)
[2022-08-24] MEDS ORDERED: DEXTROSE 50% SYRINGE 50 ML IVP PRN ×2 (18:06)
[2022-08-24] MEDS: HYDROcodone/APAP 5-325MG 1 EACH TAB PO PRN ×2 (18:06→21:36)
[2022-08-24] MEDS: GABAPENTIN 300 MG CAP PO SCH ×2 (18:06→21:33)
--- NOTE | 2022-08-24 18:53 | P.CONS ---
History of Present Illness - Reason for Consult Consult date: 08/24/22 Medical management Requesting physician: Cathleen Reina - Chief Complaint Right below-knee amputation - History of Present Illness This is a very pleasant 66-year-old patient, follows with Dr. Sumi Brewer. Chronic stable medical conditions include PAD, diabetes mellitus type 2, atrial fibrillation, hyperlipidemia, essential hypertension, chronic congestive heart failure from systolic dysfunction EF 35-40%, mitral regurgitation, mild CAD. wounds to the right toe since January.- gangrene.- follows at the wound care center by Dr. Santillan. Patient had received antibiotics for the same. Patient and Dr. Reina decided to proceed with right below-knee amputation. Estimated blood losses 100 mL. Right leg in a brace. Post pain control. at the bedside. No nausea vomiting. Review of systems: GEN.: None EYES: None HEENT: None NECK: None RESPIRATORY: None CARDIOVASCULAR: None GASTROINTESTINAL: None GENITOURINARY: None MUSCULOSKELETAL: Joint pains LYMPHATICS: None HEMATOLOGICAL: None PSYCHIATRY: None NEUROLOGICAL: None Past medical history to include: Right foot wound, with gangrene, PAD, diabetes mellitus type 2, persistent atrial fibrillation, hyperlipidemia, essential hypertension, CHF EF 35-40%, [id number] MR, mild CAD Social history: Lives with her . Nonsmoker. Alcohol occasionally. On examination: VITAL SIGNS: 97.4, 120, 16, 141/62, 96% room air GENERAL APPEARANCE: Reclining in bed, awake comfortable HEENT: Normal external appearance of nose and ear. Oral cavity normal EYES: Pupils equal. Conjunctiva normal. NECK: JVD not raised. Mass not palpable. RESPIRATORY: Respiratory effort normal. Lungs clear to auscultation. CARDIOVASCULAR: Heart sounds irregular No edema. ABDOMEN: Soft. Liver and spleen not palpable. No tenderness. No mass palpable. PSYCHIATRY: Alert and oriented x3. Mood and affect normal. Right lower extremity: Right below-knee amputation. Right leg brace INVESTIGATIONS, reviewed in the clinical context: Labs from 08/10/2022 White count 11.5 hemoglobin 11.9 platelets 348 INR 7.5 sodium 138 potassium 4.7 BUN 20 creatinine 0.9. TSH 3.2 Chest x-ray film personally reviewed by me-cardiomegaly. Ultrasound venous Doppler: Left lower extremity/negative for DVT Previous testing Cardiac catheterization: July 28: Mild CAD with 30-40% RCA, 40% mid circumflex, 80% diagonal 1 and 80% diagonal 2 stenosis. 2-D echocardiogram [July 2022]: EF 35-40%. [id number]-[id number]-[id number] MR. Assessment and plan: -Right below-knee amputation, for Chronic Right foot 4-[address] Reina. Pain control. -Peripheral arterial disease Coumadin. Will resume tomorrow -Diabetes mellitus type 2, chronically on insulin Levemir. Follow Accu-Cheks -Persistent atrial fibrillation, rate into 1 teens. Amiodarone Coumadin. Metoprolol. Patient does follow with Dr. Lanier. He is a very patient's heart rate is baseline runs a bit high. -Hyperlipidemia Lipitor -Essential hypertension Losartan hydrochlorothiazide. Toprol-XL. -Chronic congestive heart failure from systolic dysfunction EF 35-40%. Toprol-XL. Cozaar. Aldactone. -Mild to moderate MR - Mild CAD with 30-40% RCA, 40% mid circumflex, 80% diagonal 1 and 80% diagonal 2 stenosis. Aspirin, Lipitor. Lopressor Discussed with the patient. Telemetry. Resume Coumadin tomorrow. Thank you Dr. Reina Past Medical History Past Medical History: Atrial Fibrillation, Heart Failure, Diabetes Mellitus, Eye Disorder, Hyperlipidemia, Hypertension, Vascular Disorder Additional Past Medical History / Comment(s): chronic foot wound on the right, leg pain and cramping on the right, Newly diagnosed heart failure-EF 35% History of Any Multi-Drug Resistant Organisms: None Reported Past Surgical History: Back Surgery, Section, Heart Catheterization Additional Past Surgical History / Comment(s): angiogram. harrison. cataracts removed Past Anesthesia/Blood Transfusion Reactions: No Reported Reaction Past Psychological History: No Psychological Hx Reported Smoking Status: Never smoker Past Alcohol Use History: Occasional Past Drug Use History: None Reported - Past Family History Father Family Medical History: Cancer Medications and Allergies Home Medications Medication Instructions Recorded Confirmed Type Insulin Detemir [Levemir Flexpen] 15 unit SQ BID 11/14/13 08/22/22 History metFORMIN HCL [Glucophage] 1,000 mg PO BID 11/14/13 08/22/22 History Atorvastatin [Lipitor] 40 mg PO DAILY 07/23/22 08/22/22 History Clopidogrel [Plavix] 75 mg PO DAILY 07/23/22 08/22/22 History Gabapentin 300 mg PO DIRECTED 07/23/22 08/22/22 History Losartan/Hydrochlorothiazide 1 tab PO DAILY 07/23/22 08/22/22 History [Losartan-Hctz 100-12.5 mg Tab] Warfarin [Coumadin] 2.5 mg PO MO 07/23/22 08/22/22 History Warfarin [Coumadin] 5 mg PO SUTUWETHFRSA 07/23/22 08/22/22 History traMADol HCL 25 mg PO BID PRN 07/23/22 08/22/22 History Metoprolol Succinate (ER) [Toprol 100 mg PO DAILY #30 tab 07/30/22 08/22/22 Rx XL] Spironolactone [Aldactone] 25 mg PO DAILY #30 tab 07/30/22 08/22/22 Rx Amiodarone [Cordarone] 200 mg PO DAILY 08/10/22 08/22/22 History Metoprolol Succinate (ER) [Toprol 50 mg PO HS 08/10/22 08/22/22 History XL] HYDROcodone/APAP 5-325MG [[place]ruff 1 tab PO Q4-6H PRN 08/24/22 08/24/22 History 5-325] Allergies Allergy/AdvReac Type Severity Reaction Status Date / Time morphine AdvReac Nausea Verified 08/10/22 15:21 Physical Exam Vitals: Vital Signs Temp Pulse Pulse Resp BP BP Pulse Ox 08/24/22 17:15 123 H 16 141/62 96 08/24/22 16:45 112 H 16 115/60 96 08/24/22 16:15 120 H 16 117/72 96 08/24/22 16:00 109 H 16 134/73 93 L 08/24/22 15:45 114 H 16 126/70 96 08/24/22 15:30 109 H 16 132/60 97 08/24/22 15:15 126 H 16 130/73 92 L 08/24/22 15:00 128 H 16 115/78 100 08/24/22 14:46 121 H 16 140/70 100 08/24/22 14:29 120 H 16 119/75 100 08/24/22 14:14 97.4 F L 116 H 16 130/80 98 08/24/22 11:00 97.2 F L 120 H 16 136/97 99 Intake and Output 08/24/22 08/24/22 08/24/22 06:59 14:59 22:59 Intake Total 1151 1050 Output Total 100 Balance 1051 1050 Intake: IV 1151 1050 Output: Estimated Blood Loss 100 Other: Weight 84.2 kg 84.2 kg Results Labs: Abnormal Lab Results - Last 24 Hours (Table) 08/24/22 08/24/22 08/24/22 Range/Units 11:00 11:02 14:33 PT 15.1 H (9.0-12.0) sec INR 1.5 H (<1.2) POC Glucose (mg/dL) 177 H 167 H (70-110) mg/dL
[2022-08-24] MEDS ORDERED: WARFARIN 5 MG TAB PO SCH (19:00)
[2022-08-24 19:48] LABS: Glucose,Whole Blood 200 mg/dL (70-110)
[2022-08-24] MEDS: metFORMIN 500 MG TAB PO SCH (20:25)
[2022-08-24] MEDS: METOPROLOL SUCCINATE (ER) 50 MG TAB.ER.24H PO SCH (20:25)
[2022-08-24] MEDS: INSULIN ASPART (NovoLOG) 100 UNIT/ML VIAL SQ SCH (21:18)
[2022-08-25] MEDS: HYDROcodone/APAP 5-325MG 1 EACH TAB PO PRN ×5 (03:44→23:32)
[2022-08-25] MEDS: HYDROmorphone 0.5 MG/0.5 ML SYRINGE IVP PRN ×4 (03:45→19:40)
[2022-08-25 06:06] LABS: Glucose,Whole Blood 149 mg/dL (70-110)
[2022-08-25] MEDS: INSULIN ASPART (NovoLOG) 100 UNIT/ML VIAL SQ SCH ×3 (06:08→17:04)
[2022-08-25] MEDS: INSULIN DETEMIR (LEVEMIR) 100 UNIT/ML SYR SQ SCH ×2 (06:33→21:02)
[2022-08-25] MEDS: LACTATED RINGERS 1,000 ML IV SCH ×3 (07:39→15:42)
[2022-08-25 08:02] LABS: HCT 30.6 % (34.0-46.0); HGB 10.2 gm/dL (11.4-16.0); MCH 29.1 pg (25.0-35.0); MCHC 33.3 g/dL (31.0-37.0); MCV 87.4 fL (80.0-100.0); Mean Platelet Volume 9.7; Platelet Count 275 k/uL (150-450); RDW 13.8 % (11.5-15.5); WBC 15.9 k/uL (3.8-10.6)
[2022-08-25 08:15] LABS: African American GFR (CKD) >90 (>60 ml/min/1.73 sqM); Anion Gap 9 mmol/L; Blood Urea Nitrogen 15 mg/dL (7-17); Calcium 8.7 mg/dL (8.4-10.2); Carbon Dioxide 27 mmol/L (22-30); Chloride 98 mmol/L (98-107); Glucose 134 mg/dL (74-99); Non-African American GFR(CKD) 79 (>60 ml/min/1.73 sqM); Potassium 4.6 mmol/L (3.5-5.1); Sodium 134 mmol/L (137-145)
--- NOTE | 2022-08-25 08:33 | P.PN ---
Subjective Progress Note Date: 08/25/22 Principal diagnosis: Right below knee amputation Dee is seen today as a follow-up with a history of right lower extremity peripheral arterial disease status post multiple procedures who continue to have chronic wounds and dry gangrene of the right toes and foot. Yesterday she underwent right qaxlr-ptw-xhad amputation. She is postop day #1. States she is doing well other than having some pain. She is currently sitting up in bed having breakfast. Denies any shortness of breath, chest pain, abdominal pain, nausea, vomiting, fevers or chills. She currently has a knee immobilizer in place. Plan is for possible inpatient rehab. Patient is agreeable to this plan. Today's labs WBC 15.9 hemoglobin 10 platelet count 275,000 sodium 134 potassium 4.6 BUN 15 creatinine 0.78 glucose 134 Objective - Vital Signs Vital signs: Vital Signs Temp 97.9 F 08/24/22 20:00 Pulse 101 H 08/25/22 04:00 Resp 16 08/25/22 04:00 BP 120/75 08/25/22 04:00 Pulse Ox 96 08/25/22 04:00 FiO2 Intake & Output 08/24/22 08/25/22 08/25/22 18:59 06:59 18:59 Intake Total 2201 658 Output Total 100 500 Balance 2101 158 Weight 84.2 kg Intake: IV 2201 Oral 658 Output: Urine 500 Estimated Blood Loss 100 Other: Voiding Method External Catheter - Exam General appearance: The patient is alert, oriented, appears in no acute distress. HET: Head is normocephalic and atraumatic. Pupils are equal and reactive. Neck: Supple. Heart: Regular. Lungs: Equal expansion, normal respiratory effort. Abdomen: Soft, nontender, nondistended. Extremities: Right lower extremity [id number] amputation with dressing and Garry wrap intact. Knee immobilizer in place. Neurological: No focal deficits. Strength and sensation are grossly intact. - Labs CBC & Chem 7: 08/25/22 06:48 08/25/22 06:48 Labs: Abnormal Lab Results - Last 24 Hours (Table) 08/24/22 08/24/22 08/24/22 Range/Units 11:00 11:02 14:33 WBC (3.8-10.6) k/uL RBC (3.80-5.40) m/uL Hgb (11.4-16.0) gm/dL Hct (34.0-46.0) % PT 15.1 H (9.0-12.0) sec INR 1.5 H (<1.2) Sodium (137-145) mmol/L Glucose (74-99) mg/dL POC Glucose (mg/dL) 177 H 167 H (70-110) mg/dL 08/24/22 08/25/22 08/25/22 Range/Units 19:47 06:05 06:48 WBC 15.9 H (3.8-10.6) k/uL RBC 3.50 L (3.80-5.40) m/uL Hgb 10.2 L (11.4-16.0) gm/dL Hct 30.6 L (34.0-46.0) % PT (9.0-12.0) sec INR (<1.2) Sodium (137-145) mmol/L Glucose (74-99) mg/dL POC Glucose (mg/dL) 200 H 149 H (70-110) mg/dL 08/25/22 Range/Units 06:48 WBC (3.8-10.6) k/uL RBC (3.80-5.40) m/uL Hgb (11.4-16.0) gm/dL Hct (34.0-46.0) % PT (9.0-12.0) sec INR (<1.2) Sodium 134 L (137-145) mmol/L Glucose 134 H (74-99) mg/dL POC Glucose (mg/dL) (70-110) mg/dL Assessment and Plan Assessment: 1. Chronic peripheral arterial disease with dry gangrene of right toes and foot status post op day #1 right dtlbi-kem-ztks amputation 2. Diabetes mellitus type 2 3. Atrial fibrillation 4. Hyperlipidemia 5. Hypertension 6. Chronic congestive heart failure Plan: 1. Consult to Dr. Franz for inpatient rehab 2. PT/OT consulted 3. Keep knee immobilizer in place 4. No dressing change until 08/26/2022 5. Order for stump director health and rigid dressing placed in chart 6. Continue with pain management 7. Defer rest of medical management to primary medicine The impression and plan of care has been dictated as directed. I performed a history and examination of this patient, discussed the same with the dictator. I agree with the dictator's note ,documented as a scribe. Any additional findings or plans will be noted.
[2022-08-25 08:36] LABS: INR 9.5 (<1.2)
[2022-08-25] MEDS: ATORVASTATIN 40 MG TAB PO SCH (09:32)
[2022-08-25] MEDS: metFORMIN 500 MG TAB PO SCH ×2 (09:32→21:01)
[2022-08-25] MEDS: LOSARTAN 50 MG TAB PO SCH (09:32)
[2022-08-25] MEDS: METOPROLOL SUCCINATE (ER) 100 MG TAB.ER.24H PO SCH (09:32)
[2022-08-25] MEDS: GABAPENTIN 300 MG CAP PO SCH ×3 (09:32→21:01)
[2022-08-25] MEDS: AMIODARONE 200 MG TAB PO SCH (09:33)
[2022-08-25] MEDS ORDERED: PHYTONADIONE ORAL 5 MG/5 ML ORAL.SYRG PO STA (11:26)
[2022-08-25 11:28] LABS: INR 1.5 (<1.2); Prothrombin Time 14.8 sec (9.0-12.0)
--- NOTE | 2022-08-25 11:30 | P.PN ---
Progress Note - Text Progress Note Date: 08/25/22 - Chief Complaint Right below-knee amputation Hospital course: This is a very pleasant 66-year-old patient, follows with Dr. Sumi Brewer. Chronic stable medical conditions include PAD, diabetes mellitus type 2, atrial fibrillation, hyperlipidemia, essential hypertension, chronic congestive heart failure from systolic dysfunction EF 35-40%, mitral regurgitation, mild CAD. wounds to the right toe since January.- gangrene.- follows at the wound care center by Dr. Santillan. Patient had received antibiotics for the same. Patient and Dr. Reina decided to proceed with right below-knee amputation. Estimated blood losses 100 mL. Right leg in a brace. Post pain control. at the bedside. No nausea vomiting. August 25: Reclining in bed. Some pain at the operative site. No nausea vomiting. Did not eat a breakfast. Did sit up in a chair earlier. Son and [id number] visiting. Questions answered. Atrial fibrillation heart rate around 100. Coumadin will be started tonight. INR 9.5. We'll give vitamin K 5 mg 1. Active Medications Hydrocodone Bitart/Acetaminophen (Hydrocodone/Apap 5-325mg 1 Each Tab) 1 each PO Q4HR PRN PRN Reason: Pain Scale 6 to 7 Stop: 09/23/22 14:31 Last Admin: 08/25/22 09:33 Dose: 1 each Amiodarone HCl (Amiodarone 200 Mg Tab) 200 mg PO DAILY [facility] Last Admin: 08/25/22 09:33 Dose: 200 mg Atorvastatin Calcium (Atorvastatin 40 Mg Tab) 40 mg PO DAILY [facility] Last Admin: 08/25/22 09:32 Dose: 40 mg Dextrose/Water (Dextrose 50% Syringe 50 Ml) 25 ml IVP PER PROTOCOL PRN; Protocol PRN Reason: Hypoglycemia Dextrose/Water (Dextrose 50% Syringe 50 Ml) 50 ml IVP PER PROTOCOL PRN; Protocol PRN Reason: Hypoglycemia Diazepam (Diazepam 2 Mg Tab) 2 mg PO TID PRN PRN Reason: Muscle Spasm Stop: 09/23/22 14:31 Gabapentin (Gabapentin 300 Mg Cap) 300 mg PO TID [facility] Stop: 09/23/22 16:01 Last Admin: 08/25/22 09:32 Dose: 300 mg Hydrochlorothiazide (Hydrochlorothiazide 12.5 Mg Cap) 12.5 mg PO DAILY [facility] Hydromorphone HCl (Hydromorphone 0.5 Mg/0.5 Ml Syringe) 0.5 mg IVP Q3HR PRN PRN Reason: Pain 8-10 Stop: 09/23/22 14:31 Last Admin: 08/25/22 03:45 Dose: 0.5 mg Lactated Ringer's (Lactated Ringers) 1,000 mls @ 20 mls/hr IV .Q24H [facility] Stop: 09/23/22 07:17 Last Admin: 08/25/22 07:39 Dose: Not Given Lactated Ringer's (Lactated Ringers) 1,000 mls @ 75 mls/hr IV .[id number] [facility] Stop: 09/23/22 14:31 Last Admin: 08/25/22 07:39 Dose: Not Given Insulin Aspart (Insulin Aspart (Novolog) 100 Unit/Ml Vial) 0 unit SQ AC-TID [facility]; Protocol Last Admin: 08/25/22 06:08 Dose: Not Given Insulin Detemir (Insulin Detemir (Levemir) 100 Unit/Ml Syr) 15 unit SQ BID@0700,2100 [facility] Last Admin: 08/25/22 06:33 Dose: 15 unit Lidocaine HCl (Lidocaine 1% (10mg/Ml) For Iv Start) 0.1 ml INTRADERMA PER PROTOCOL PRN PRN Reason: IV Start Stop: 09/23/22 07:17 Last Admin: 08/24/22 11:00 Dose: 0.1 ml Losartan Potassium (Losartan 50 Mg Tab) 100 mg PO DAILY [facility] Last Admin: 08/25/22 09:32 Dose: 100 mg Metformin HCl (Metformin 500 Mg Tab) 1,000 mg PO BID [facility] Last Admin: 08/25/22 09:32 Dose: 1,000 mg Metoprolol Succinate (Metoprolol Succinate (Er) 50 Mg Tab.Er.24h) 50 mg PO HS [facility] Last Admin: 08/24/22 20:25 Dose: 25 mg Metoprolol Succinate (Metoprolol Succinate (Er) 100 Mg Tab.Er.24h) 100 mg PO DAILY [facility] Last Admin: 08/25/22 09:32 Dose: 100 mg Miscellaneous Information (Warfarin Per Pharmacy) 0 each MISCELLANE DIRECTED PRN PRN Reason: ANTICOAG Ondansetron HCl (Ondansetron 4 Mg/2 Ml Vial) 4 mg IVP Q6HR PRN PRN Reason: Nausea And Vomiting Stop: 09/23/22 14:31 Warfarin Sodium (Warfarin 0.5 Mg Tab) 0 mg PO ONCE@1800 ONE Stop: 08/25/22 18:01 Past medical history to include: Right foot wound, with gangrene, PAD, diabetes mellitus type 2, persistent atrial fibrillation, hyperlipidemia, essential hypertension, CHF EF 35-40%, [id number] MR, mild CAD Social history: Lives with her . Nonsmoker. Alcohol occasionally. On examination: VITAL SIGNS: Afebrile, 101, 16, 120/75, 96% room air GENERAL APPEARANCE: Reclining in bed, awake comfortable HEENT: Normal external appearance of nose and ear. Oral cavity normal EYES: Pupils equal. Conjunctiva normal. NECK: JVD not raised. Mass not palpable. RESPIRATORY: Respiratory effort normal. Lungs clear to auscultation. CARDIOVASCULAR: Heart sounds irregular No edema. ABDOMEN: Soft. Liver and spleen not palpable. No tenderness. No mass palpable. PSYCHIATRY: Alert and oriented x3. Mood and affect normal. Right lower extremity: Right below-knee amputation. Right leg brace INVESTIGATIONS, reviewed in the clinical context: August 25: White count 15.9 hemoglobin 10.2 INR 9.5 potassium 4.6 creatinine 0.78 INR 9.5 Labs from 08/10/2022 White count 11.5 hemoglobin 11.9 platelets 348 INR 7.5 sodium 138 potassium 4.7 BUN 20 creatinine 0.9. TSH 3.2 Chest x-ray film personally reviewed by or-cardiomegaly. Ultrasound venous Doppler: Left lower extremity/negative for DVT Previous testing Cardiac catheterization: July 28: Mild CAD with 30-40% RCA, 40% mid circumflex, 80% diagonal 1 and 80% diagonal 2 stenosis. 2-D echocardiogram [July 2022]: EF 35-40%. [id number] MR. Assessment and plan: -Right below-knee amputation, for Chronic Right foot 4-[address] Reina. Pain control. -Coumadin toxicity. No bleeding. Vitamin K milligrams by mouth 1 pharmacy following. -Peripheral arterial disease -Diabetes mellitus type 2, chronically on insulin Levemir. Follow Accu-Cheks -Persistent atrial fibrillation, rate into 1 teens. Amiodarone Coumadin. Metoprolol. Patient does follow with Dr. Lanier. He is a very patient's heart rate is baseline runs a bit high. -Hyperlipidemia Lipitor -Essential hypertension Losartan hydrochlorothiazide. Toprol-XL. -Chronic congestive heart failure from systolic dysfunction EF 35-40%. Toprol-XL. Cozaar. Aldactone. -Mild to moderate MR - Mild CAD with 30-40% RCA, 40% mid circumflex, 80% diagonal 1 and 80% diagonal 2 stenosis. Aspirin, Lipitor. Lopressor Discussed with the patient. Vitamin K [address] Reina
[2022-08-25 11:33] LABS: Glucose,Whole Blood 151 mg/dL (70-110)
[2022-08-25] MEDS: hydroCHLOROthiazide 12.5 MG CAP PO SCH (12:37)
[2022-08-25 16:40] LABS: Glucose,Whole Blood 156 mg/dL (70-110)
[2022-08-25] MEDS ORDERED: WARFARIN 0.5 MG TAB PO ONE (18:00)
[2022-08-25 20:01] LABS: Glucose,Whole Blood 189 mg/dL (70-110)
--- NOTE | 2022-08-25 20:11 | P.CONS ---
History of Present Illness - Reason for Consult Consult date: 08/25/22 Rehabilitation needs - Chief Complaint Gait instability s/p right BKA - History of Present Illness Mrs. Dobson is a 66 y/o female. She lives with her in a 1 with 2 MARC. 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 She has a good support system from her children. She presented to [facility] on 08/24/2022 for a right below the knee amputation due to gangrene of the right foot. PMH includes PAD, diabetes mellitus type 2, atrial fibrillation, hyperlipidemia, essential hypertension, chronic congestive heart failure from systolic dysfunction EF 35-40%, mitral regurgitation and mild CAD. 08/25/2022: She is doing pretty well today. She almost feel when working with therapy due to forgetting she had the right BKA. She has incisional pain and abnormal sensations in the absent part of the right leg. She denies having a BM since surgery. Review of Systems Negative unless stated in HPI. Past Medical History Past Medical History: Atrial Fibrillation, Heart Failure, Diabetes Mellitus, Eye Disorder, Hyperlipidemia, Hypertension, Vascular Disorder Additional Past Medical History / Comment(s): chronic foot wound on the right, l eg pain and cramping on the right, Newly diagnosed heart failure-EF 35% History of Any Multi-Drug Resistant Organisms: None Reported Past Surgical History: Back Surgery, Section, Heart Catheterization Additional Past Surgical History / Comment(s): angiogram. harrison. cataracts removed Past Anesthesia/Blood Transfusion Reactions: No Reported Reaction Past Psychological History: No Psychological Hx Reported Smoking Status: Never smoker Past Alcohol Use History: Occasional Past Drug Use History: None Reported - Past Family History Father Family Medical History: Cancer Medications and Allergies Home Medications Medication Instructions Recorded Confirmed Type Insulin Detemir [Levemir Flexpen] 15 unit SQ BID 11/14/13 08/22/22 History metFORMIN HCL [Glucophage] 1,000 mg PO BID 11/14/13 08/22/22 History Atorvastatin [Lipitor] 40 mg PO DAILY 07/23/22 08/22/22 History Clopidogrel [Plavix] 75 mg PO DAILY 07/23/22 08/22/22 History Gabapentin 300 mg PO DIRECTED 07/23/22 08/22/22 History Losartan/Hydrochlorothiazide 1 tab PO DAILY 07/23/22 08/22/22 History [Losartan-Hctz 100-12.5 mg Tab] Warfarin [Coumadin] 2.5 mg PO MO 07/23/22 08/22/22 History Warfarin [Coumadin] 5 mg PO [id number] 07/23/22 08/22/22 History traMADol HCL 25 mg PO BID PRN 07/23/22 08/22/22 History Metoprolol Succinate (ER) [Toprol 100 mg PO DAILY #30 tab 07/30/22 08/22/22 Rx XL] Spironolactone [Aldactone] 25 mg PO DAILY #30 tab 07/30/22 08/22/22 Rx Amiodarone [Cordarone] 200 mg PO DAILY 08/10/22 08/22/22 History Metoprolol Succinate (ER) [Toprol 50 mg PO HS 08/10/22 08/22/22 History XL] HYDROcodone/APAP 5-325MG [[place] 1 tab PO Q4-6H PRN 08/24/22 08/24/22 History 5-325] Allergies Allergy/AdvReac Type Severity Reaction Status Date / Time morphine AdvReac Nausea Verified 08/10/22 15:21 Physical Exam Vitals: Vital Signs Temp Pulse Resp BP Pulse Ox 08/25/22 14:50 107 H 18 123/77 95 08/25/22 12:00 98.0 F 104 H 16 134/76 96 08/25/22 09:05 104 H 16 08/25/22 04:00 101 H 16 120/75 96 08/25/22 00:00 102 H 16 118/71 94 L 08/24/22 20:00 97.9 F 100 16 121/78 94 L Intake and Output 08/25/22 08/25/22 08/25/22 06:59 14:59 22:59 Intake Total 540 658 Output Total 500 500 Balance 40 158 Intake: Oral 540 658 Output: Urine 500 500 Other: Voiding Method External Catheter External Catheter General: Well-developed, well-nourished, female, in no acute distress, sitting up in bed, 2 daughters at bedside HEENT: NC/AT, external ears intact, hearing intact to conversational speech, neck supple Cardiovascular: left calf is supple, nontender, no cords, without peripheral edema, no cardiac distress Respiratory: Even and unlabored breathing on RA Abdomen: Soft, nontender, nondistended Musculoskeletal: ROM WFL; right BKA MMT BL UEs: Sh Abd: 07/05 EE: 07/05 EF: 08/04 FABD: 08/04 WE: 08/04 H/5 MMT RLE: HF: 07/05 KE: 07/05 MMT LLE: HF: 07/05 KE: 08/04 DF: 08/04 EHL: 08/04 Skin: Skin intact where visible to head, neck, and bilateral upper and lower extremities Neurological: Alert and oriented x 3. CN II-XII: Grossly intact. Speech is clear, fluent Psychiatric: Mood calm, affect appropriate, cooperative Results CBC & Chem 7: 08/25/22 06:48 08/25/22 06:48 Labs: Abnormal Lab Results - Last 24 Hours (Table) 08/24/22 08/25/22 08/25/22 Range/Units 19:47 06:05 06:48 WBC (3.8-10.6) k/uL RBC (3.80-5.40) m/uL Hgb (11.4-16.0) gm/dL Hct (34.0-46.0) % PT 97.0 H (9.0-12.0) sec INR 9.5 H* (<1.2) Sodium (137-145) mmol/L Glucose (74-99) mg/dL POC Glucose (mg/dL) 200 H 149 H (70-110) mg/dL 08/25/22 08/25/22 08/25/22 Range/Units 06:48 06:48 10:39 WBC 15.9 H (3.8-10.6) k/uL RBC 3.50 L (3.80-5.40) m/uL Hgb 10.2 L (11.4-16.0) gm/dL Hct 30.6 L (34.0-46.0) % PT 14.8 H (9.0-12.0) sec INR 1.5 H (<1.2) Sodium 134 L (137-145) mmol/L Glucose 134 H (74-99) mg/dL POC Glucose (mg/dL) (70-110) mg/dL 08/25/22 08/25/22 Range/Units 11:32 16:37 WBC (3.8-10.6) k/uL RBC (3.80-5.40) m/uL Hgb (11.4-16.0) gm/dL Hct (34.0-46.0) % PT (9.0-12.0) sec INR (<1.2) Sodium (137-145) mmol/L Glucose (74-99) mg/dL POC Glucose (mg/dL) 151 H 156 H (70-110) mg/dL Assessment and Plan Assessment: Mrs. Dobson has a functional decline s/p right BKA on 08/24/2022. # Gait instability s/p right BKA on 08/24/2022 -PT/OT/LAYOUT ARTIST -She is unsure who her chief ultrasound technologist is # Bowel/ Bladder: Nursing to monitor and report concerns if any. -No BM since surgery on 08/24/2022 # Skin/wound: Skin/Wound care to follow as needed # Pain Management -Per surgeon and IM -Monitor phantom pain complaints # DVT Prophylaxis: Defer to Ortho/IM management. -Plan for AC to resume on 08/26/2022 based on EMR # Comorbidities: PAD, diabetes mellitus type 2, atrial fibrillation, hype rlipidemia, essential hypertension, chronic congestive heart failure from systolic dysfunction EF 35-40%, mitral regurgitation and mild CAD # Your medical dx and mgt Goals: Modified Independent mobility and ADLS both basic and advanced; increased functional mobility/strength; increased balance, safety, endurance. Improvement in medical issues through your care. Barriers: right BKA Discharge recommendation: IPR once medically stable. Constantine Verma D.O.
[2022-08-25] MEDS: METOPROLOL SUCCINATE (ER) 50 MG TAB.ER.24H PO SCH (21:02)
[2022-08-26] MEDS: HYDROmorphone 0.5 MG/0.5 ML SYRINGE IVP PRN ×4 (03:44→23:20)
[2022-08-26] MEDS: INSULIN ASPART (NovoLOG) 100 UNIT/ML VIAL SQ SCH ×3 (06:11→18:16)
[2022-08-26] MEDS: HYDROcodone/APAP 5-325MG 1 EACH TAB PO PRN ×4 (06:11→23:20)
[2022-08-26] MEDS: INSULIN DETEMIR (LEVEMIR) 100 UNIT/ML SYR SQ SCH ×2 (06:11→20:31)
[2022-08-26 06:12] LABS: Glucose,Whole Blood 105 mg/dL (70-110)
[2022-08-26] MEDS: LACTATED RINGERS 1,000 ML IV SCH ×3 (06:12→16:40)
[2022-08-26 08:35] LABS: INR 1.2 (<1.2); Prothrombin Time 12.4 sec (9.0-12.0)
[2022-08-26] MEDS: ATORVASTATIN 40 MG TAB PO SCH (08:52)
[2022-08-26] MEDS: hydroCHLOROthiazide 12.5 MG CAP PO SCH (08:52)
[2022-08-26] MEDS: METOPROLOL SUCCINATE (ER) 100 MG TAB.ER.24H PO SCH (08:53)
[2022-08-26] MEDS: AMIODARONE 200 MG TAB PO SCH (08:53)
[2022-08-26] MEDS: metFORMIN 500 MG TAB PO SCH ×2 (08:53→20:31)
[2022-08-26] MEDS: GABAPENTIN 300 MG CAP PO SCH ×3 (08:53→20:31)
[2022-08-26] MEDS: LOSARTAN 50 MG TAB PO SCH (08:53)
--- NOTE | 2022-08-26 08:58 | P.PN ---
Subjective Progress Note Date: 08/26/22 Patient seen and examined. Doing well. Has been up with physical therapy and did have near fall. Was seen by rehab, plans for inpatient rehab upon discharge. We will plan to change dressing tomorrow. Continue current pain control. Continue physical therapy. Continue activity. Vidya with [facility] will come back Sunday and continue on for prosthetics follow-up Objective - Vital Signs Vital signs: Vital Signs Temp 97.9 F 08/26/22 08:00 Pulse 127 H 08/26/22 08:00 Resp 16 08/26/22 08:00 BP 142/63 08/26/22 08:00 Pulse Ox 97 08/26/22 08:00 FiO2 Intake & Output 08/25/22 08/26/22 08/26/22 18:59 06:59 18:59 Intake Total 658 1080 118 Output Total 500 1400 Balance 158 -320 118 Intake: Oral 658 1080 118 Output: Urine 500 1400 Other: Voiding Method External Catheter External Catheter # Voids 1 # Bowel Movements 1 - Labs CBC & Chem 7: 08/25/22 06:48 08/25/22 06:48 Labs: Abnormal Lab Results - Last 24 Hours (Table) 08/25/22 08/25/22 08/25/22 Range/Units 10:39 11:32 16:37 PT 14.8 H (9.0-12.0) sec INR 1.5 H (<1.2) POC Glucose (mg/dL) 151 H 156 H (70-110) mg/dL 08/25/22 08/26/22 Range/Units 20:00 06:55 PT 12.4 H (9.0-12.0) sec INR 1.2 H (<1.2) POC Glucose (mg/dL) 189 H (70-110) mg/dL
[2022-08-26 11:41] LABS: Glucose,Whole Blood 128 mg/dL (70-110)
[2022-08-26 16:24] LABS: Glucose,Whole Blood 180 mg/dL (70-110)
--- NOTE | 2022-08-26 16:28 | P.PN ---
Subjective Progress Note Date: 08/26/22 66 y/o female. She lives with her in a 1 with 2 MARC. 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 She has a good support system from her children. She presented to [facility] on 08/24/2022 for a right below the knee amputation due to gangrene of the right foot. PMH includes PAD, diabetes mellitus type 2, atrial fibrillation, hyperlipidemia, essential hypertension, chronic congestive heart failure from systolic dysfunction EF 35-40%, mitral regurgitation and mild CAD. Objective - Vital Signs Vital signs: Vital Signs Temp 97.9 F 08/26/22 08:00 Pulse 127 H 08/26/22 08:00 Resp 16 08/26/22 08:00 BP 142/63 08/26/22 08:00 Pulse Ox 97 08/26/22 08:00 FiO2 Intake & Output 08/25/22 08/26/22 08/26/22 18:59 06:59 18:59 Intake Total 658 1080 118 Output Total 500 1400 Balance 158 -320 118 Intake: Oral 658 1080 118 Output: Urine 500 1400 Other: Voiding Method External Catheter External Catheter # Voids 1 # Bowel Movements 1 - Exam GENERAL APPEARANCE: Reclining in bed, awake comfortable HEENT: Normal external appearance of nose and ear. Oral cavity normal EYES: Pupils equal. Conjunctiva normal. NECK: JVD not raised. Mass not palpable. RESPIRATORY: Respiratory effort normal. Lungs clear to auscultation. CARDIOVASCULAR: Heart sounds irregular No edema. ABDOMEN: Soft. Liver and spleen not palpable. No tenderness. No mass palpable. PSYCHIATRY: Alert and oriented x3. Mood and affect normal. Right lower extremity: Right below-knee amputation. Right leg brace - Labs CBC & Chem 7: 08/25/22 06:48 08/25/22 06:48 Labs: Abnormal Lab Results - Last 24 Hours (Table) 08/25/22 08/25/22 08/25/22 Range/Units 10:39 11:32 16:37 PT 14.8 H (9.0-12.0) sec INR 1.5 H (<1.2) POC Glucose (mg/dL) 151 H 156 H (70-110) mg/dL 08/25/22 08/26/22 Range/Units 20:00 06:55 PT 12.4 H (9.0-12.0) sec INR 1.2 H (<1.2) POC Glucose (mg/dL) 189 H (70-110) mg/dL Assessment and Plan Assessment: -Right below-knee amputation, for Chronic Right foot 4-[address] Reina. Pain control. -Coumadin toxicity. No bleeding. Vitamin K milligrams by mouth 1 pharmacy following. -Peripheral arterial disease -Diabetes mellitus type 2, chronically on insulin Levemir. Follow Accu-Cheks -Persistent atrial fibrillation, rate into 1 teens. Amiodarone Coumadin. Metoprolol. Patient does follow with Dr. Lanier. He is a very patient's heart rate is baseline runs a bit high. -Hyperlipidemia; Lipitor -Essential hypertension; Losartan hydrochlorothiazide. Toprol-XL. -Chronic congestive heart failure from systolic dysfunction EF 35-40%; Toprol- XL. Cozaar. Aldactone. -Mild to moderate MR - Mild CAD with 30-40% RCA, 40% mid circumflex, 80% diagonal 1 and 80% diagonal 2 stenosis. Aspirin, Lipitor. Lopressor
[2022-08-26] MEDS ORDERED: WARFARIN 5 MG TAB PO ONE (18:00)
[2022-08-26 19:56] LABS: Glucose,Whole Blood 127 mg/dL (70-110)
[2022-08-26] MEDS: METOPROLOL SUCCINATE (ER) 50 MG TAB.ER.24H PO SCH (20:30)
[2022-08-27] MEDS: HYDROcodone/APAP 5-325MG 1 EACH TAB PO PRN ×3 (03:53→23:58)
[2022-08-27] MEDS: HYDROmorphone 0.5 MG/0.5 ML SYRINGE IVP PRN ×6 (03:54→22:20)
[2022-08-27] MEDS: LACTATED RINGERS 1,000 ML IV SCH ×5 (03:54→20:59)
[2022-08-27] MEDS: INSULIN ASPART (NovoLOG) 100 UNIT/ML VIAL SQ SCH ×3 (06:05→17:22)
[2022-08-27 06:06] LABS: Glucose,Whole Blood 78 mg/dL (70-110)
[2022-08-27 06:37] LABS: Glucose,Whole Blood 84 mg/dL (70-110)
[2022-08-27] MEDS: INSULIN DETEMIR (LEVEMIR) 100 UNIT/ML SYR SQ SCH ×2 (06:58→20:58)
[2022-08-27 08:25] LABS: INR 1.1 (<1.2); Prothrombin Time 11.4 sec (9.0-12.0)
[2022-08-27] MEDS: ONDANSETRON 4 MG/2 ML VIAL IVP PRN (08:28)
[2022-08-27] MEDS: GABAPENTIN 300 MG CAP PO SCH ×3 (11:22→20:58)
[2022-08-27 11:28] LABS: Glucose,Whole Blood 68 mg/dL (70-110)
[2022-08-27] MEDS: metFORMIN 500 MG TAB PO SCH ×2 (11:54→20:58)
--- NOTE | 2022-08-27 12:42 | P.PN ---
Subjective Progress Note Date: 08/27/22 Patient seen and examined. Doing well. Has been up with physical therapy. Some nausea after meds but improved. Was seen by rehab, plans for inpatient rehab upon discharge. dressing changed, amputation site without drainage or erythema. Continue current pain control. Continue physical therapy. Continue activity. Vidya with [facility] will come back Sunday and continue on for prosthetics follow-up Objective - Vital Signs Vital signs: Vital Signs Temp 98.0 F 08/27/22 12:00 Pulse 112 H 08/27/22 12:00 Resp 17 08/27/22 12:00 BP 132/73 08/27/22 12:00 Pulse Ox 95 08/27/22 12:00 FiO2 Intake & Output 08/26/22 08/27/22 08/27/22 18:59 06:59 18:59 Intake Total 636 1620 Output Total 700 1200 Balance -64 420 Intake: Oral 636 1620 Output: Urine 700 1200 Other: Voiding Method External Catheter External Catheter # Voids 1 # Bowel Movements 1 - Labs CBC & Chem 7: 08/25/22 06:48 08/25/22 06:48 Labs: Abnormal Lab Results - Last 24 Hours (Table) 08/26/22 08/26/22 08/27/22 Range/Units 16:23 19:54 11:26 POC Glucose (mg/dL) 180 H 127 H 68 L (70-110) mg/dL
[2022-08-27] MEDS: ATORVASTATIN 40 MG TAB PO SCH (14:38)
[2022-08-27] MEDS: METOPROLOL SUCCINATE (ER) 100 MG TAB.ER.24H PO SCH (14:38)
--- NOTE | 2022-08-27 15:57 | P.PN ---
Subjective Progress Note Date: 08/27/22 66 y/o female. She lives with her in a 1 with 2 MARC. 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 She has a good support system from her children. She presented to [facility] on 08/24/2022 for a right below the knee amputation due to gangrene of the right foot. PMH includes PAD, diabetes mellitus type 2, atrial fibrillation, hyperlipidemia, essential hypertension, chronic congestive heart failure from systolic dysfunction EF 35-40%, mitral regurgitation and mild CAD. 08/27/2022 Patient seen and evaluated in room at bedside. Patient denies any specific complaints and reports she is doing well. Has been up with physical therapy. Some nausea after meds but improved. Was seen by rehab, plans for inpatient rehab upon discharge. -- Patient being followed by vascular surgery and dressing changed, amputation site without drainage or erythema. Continue current pain control. Continue physical therapy. Continue activity; [facility] will come back Sunday and continue on for prosthetics follow-up Vital signs are reviewed and remained stable with temperature of 98, pulse 112, respirations 17 and blood pressure 132/73 - Patient has had a few frequent low blood sugars; currently on Levemir 15 units twice a day along with metformin thousand milligrams twice a day and sliding scale coverage; we will monitor closely and back off on diabetic regimen if blood glucose continues to drop Objective - Vital Signs Vital signs: Vital Signs Temp 98.0 F 08/27/22 12:00 Pulse 112 H 08/27/22 12:00 Resp 17 08/27/22 12:00 BP 132/73 08/27/22 12:00 Pulse Ox 95 08/27/22 12:00 FiO2 Intake & Output 08/26/22 08/27/22 08/27/22 18:59 06:59 18:59 Intake Total 636 1620 Output Total 700 1200 Balance -64 420 Intake: Oral 636 1620 Output: Urine 700 1200 Other: Voiding Method External Catheter External Catheter # Voids 1 # Bowel Movements 1 - Exam GENERAL APPEARANCE: Reclining in bed, awake comfortable HEENT: Normal external appearance of nose and ear. Oral cavity normal EYES: Pupils equal. Conjunctiva normal. NECK: JVD not raised. Mass not palpable. RESPIRATORY: Respiratory effort normal. Lungs clear to auscultation. CARDIOVASCULAR: Heart sounds irregular No edema. ABDOMEN: Soft. Liver and spleen not palpable. No tenderness. No mass palpable. PSYCHIATRY: Alert and oriented x3. Mood and affect normal. Right lower extremity: Right below-knee amputation. Right leg brace - Labs CBC & Chem 7: 08/25/22 06:48 08/25/22 06:48 Labs: Abnormal Lab Results - Last 24 Hours (Table) 08/26/22 08/26/22 08/27/22 Range/Units 16:23 19:54 11:26 POC Glucose (mg/dL) 180 H 127 H 68 L (70-110) mg/dL Assessment and Plan Assessment: -Right below-knee amputation, for Chronic Right foot 4-[address] Reina. Pain control. -Coumadin toxicity. No bleeding. Vitamin K milligrams by mouth 1 pharmacy following. -Peripheral arterial disease -Diabetes mellitus type 2, chronically on insulin Levemir. Follow Accu-Cheks -Persistent atrial fibrillation, rate into 1 teens. Amiodarone Coumadin. Metoprolol. Patient does follow with Dr. Lanier. He is a very patient's heart rate is baseline runs a bit high. -Hyperlipidemia; Lipitor -Essential hypertension; Losartan hydrochlorothiazide. Toprol-XL. -Chronic congestive heart failure from systolic dysfunction EF 35-40%; Toprol- XL. Cozaar. Aldactone. -Mild to moderate MR - Mild CAD with 30-40% RCA, 40% mid circumflex, 80% diagonal 1 and 80% diagonal 2 stenosis. Aspirin, Lipitor. Lopressor
[2022-08-27] MEDS: LOSARTAN 50 MG TAB PO SCH (16:27)
[2022-08-27] MEDS: hydroCHLOROthiazide 12.5 MG CAP PO SCH (16:28)
[2022-08-27] MEDS: AMIODARONE 200 MG TAB PO SCH (16:28)
[2022-08-27 16:45] LABS: Glucose,Whole Blood 209 mg/dL (70-110)
[2022-08-27] MEDS ORDERED: WARFARIN 7.5 MG TAB PO ONE (18:00)
[2022-08-27 19:51] LABS: Glucose,Whole Blood 153 mg/dL (70-110)
[2022-08-27] MEDS: METOPROLOL SUCCINATE (ER) 50 MG TAB.ER.24H PO SCH (20:59)
[2022-08-28] MEDS: HYDROmorphone 0.5 MG/0.5 ML SYRINGE IVP PRN ×3 (04:05→19:49)
[2022-08-28 05:51] LABS: Glucose,Whole Blood 106 mg/dL (70-110)
[2022-08-28] MEDS: INSULIN ASPART (NovoLOG) 100 UNIT/ML VIAL SQ SCH ×3 (06:05→16:35)
[2022-08-28] MEDS: HYDROcodone/APAP 5-325MG 1 EACH TAB PO PRN ×4 (06:34→21:55)
[2022-08-28] MEDS: INSULIN DETEMIR (LEVEMIR) 100 UNIT/ML SYR SQ SCH ×2 (06:35→21:57)
[2022-08-28] MEDS: METOPROLOL SUCCINATE (ER) 100 MG TAB.ER.24H PO SCH (08:10)
[2022-08-28] MEDS: AMIODARONE 200 MG TAB PO SCH (08:10)
[2022-08-28] MEDS: GABAPENTIN 300 MG CAP PO SCH ×3 (08:10→19:51)
[2022-08-28] MEDS: LOSARTAN 50 MG TAB PO SCH (08:10)
[2022-08-28] MEDS: hydroCHLOROthiazide 12.5 MG CAP PO SCH (08:11)
[2022-08-28] MEDS: metFORMIN 500 MG TAB PO SCH ×2 (08:11→19:51)
[2022-08-28] MEDS: ATORVASTATIN 40 MG TAB PO SCH (08:11)
[2022-08-28] MEDS: polyethylene glycoL 3350 17 GM POWD.PACK PO SCH (10:40)
[2022-08-28 10:53] LABS: Basophils % (A) 0 %; Eosinophils # (A) 0.4 k/uL (0-0.7); Eosinophils % (A) 3 %; HCT 30.2 % (34.0-46.0); HGB 9.8 gm/dL (11.4-16.0); Hypochromasia Slight; Lymphocytes # (A) 1.2 k/uL (1.0-4.8); Lymphocytes % (A) 10 %; MCH 28.9 pg (25.0-35.0); MCHC 32.5 g/dL (31.0-37.0); MCV 89.1 fL (80.0-100.0); Mean Platelet Volume 7.9; Monocytes # (A) 0.8 k/uL (0-1.0); Monocytes % (A) 6 %; Neutrophils # (A) 9.4 k/uL (1.3-7.7); Neutrophils % (A) 79 %; Platelet Count 290 k/uL (150-450); RBC 3.39 m/uL (3.80-5.40); RDW 13.9 % (11.5-15.5); WBC 11.9 k/uL (3.8-10.6)
[2022-08-28 11:07] LABS: African American GFR (CKD) >90 (>60 ml/min/1.73 sqM); Anion Gap 12 mmol/L; Blood Urea Nitrogen 13 mg/dL (7-17); Calcium 8.1 mg/dL (8.4-10.2); Carbon Dioxide 27 mmol/L (22-30); Chloride 95 mmol/L (98-107); Glucose 132 mg/dL (74-99); INR 1.3 (<1.2); Non-African American GFR(CKD) 81 (>60 ml/min/1.73 sqM); Potassium 4.1 mmol/L (3.5-5.1); Prothrombin Time 13.3 sec (9.0-12.0); Sodium 134 mmol/L (137-145)
[2022-08-28] MEDS: LACTATED RINGERS 1,000 ML IV SCH (11:21)
[2022-08-28 11:39] LABS: Glucose,Whole Blood 114 mg/dL (70-110)
--- NOTE | 2022-08-28 13:54 | P.PN ---
Subjective Progress Note Date: 08/28/22 Principal diagnosis: Chronic peripheral arterial disease with dry gangrene of right toes and foot status post right [id number]-[id number] amputation 66 y/o female. She lives with her in a 1 with 2 MARC. 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 She has a good support system from her children. She presented to [facility] on 08/24/2022 for a right below the knee amputation due to gangrene of the right foot. PMH includes PAD, diabetes mellitus type 2, atrial fibrillation, hyperlipidemia, essential hypertension, chronic congestive heart failure from systolic dysfunction EF 35-40%, mitral regurgitation and mild CAD. 08/27/2022 Patient seen and evaluated in room at bedside. Patient denies any specific complaints and reports she is doing well. Has been up with physical therapy. So me nausea after meds but improved. Was seen by rehab, plans for inpatient rehab upon discharge. -- Patient being followed by vascular surgery and dressing changed, amputation site without drainage or erythema. Continue current pain control. Continue physical therapy. Continue activity; comfort prosthetics will come back Sunday and continue on for prosthetics follow-up Vital signs are reviewed and remained stable with temperature of 98, pulse 112, respirations 17 and blood pressure 132/73 - Patient has had a few frequent low blood sugars; currently on Levemir 15 units twice a day along with metformin thousand milligrams twice a day and sliding scale coverage; we will monitor closely and back off on diabetic regimen if blood glucose continues to drop 08/28/2022 Patient is seen and evaluated in room at bedside; complains of constipation with no bowel movements since Sunday Vital signs are reviewed and remained stable Lab review shows a WBC of 11.9, hemoglobin 9.8, INR of 1.3, sodium 134, potassium 4.1, BUN/creatinine of 13/0.76 -- We will plan to start patient on MiraLAX 17 g by mouth daily; milk of magnesia to be used when necessary; monitor closely with plans to make changes to bowel regimen as needed -- Patient to be visited by comfort prosthetics to be fitted for prosthesis tomorrow - Inpatient rehab once cleared by vascular surgery Objective - Vital Signs Vital signs: Vital Signs Temp 98.1 F 08/28/22 04:00 Pulse 99 08/28/22 04:00 Resp 18 08/28/22 04:00 BP 149/80 08/28/22 04:00 Pulse Ox 98 08/28/22 04:00 FiO2 Intake & Output 08/27/22 08/28/22 08/28/22 18:59 06:59 18:59 Intake Total 200 500 540 Output Total 700 500 Balance -500 0 540 Intake: Oral 200 500 540 Output: Urine 700 500 Other: Voiding Method External Catheter External Catheter - Exam GENERAL APPEARANCE: Reclining in bed, awake comfortable HEENT: Normal external appearance of nose and ear. Oral cavity normal EYES: Pupils equal. Conjunctiva normal. NECK: JVD not raised. Mass not palpable. RESPIRATORY: Respiratory effort normal. Lungs clear to auscultation. CARDIOVASCULAR: Heart sounds irregular No edema. ABDOMEN: Soft. Liver and spleen not palpable. No tenderness. No mass palpable. PSYCHIATRY: Alert and oriented x3. Mood and affect normal. Right lower extremity: Right below-knee amputation. Right leg brace - Labs CBC & Chem 7: 08/28/22 10:22 08/28/22 10:22 Labs: Abnormal Lab Results - Last 24 Hours (Table) 08/27/22 08/27/22 08/27/22 Range/Units 11:26 16:40 19:50 POC Glucose (mg/dL) 68 L 209 H 153 H (70-110) mg/dL Assessment and Plan Assessment: -Right below-knee amputation, for Chronic Right foot 4-[address] Reina. Pain control. -Coumadin toxicity. No bleeding. Vitamin K milligrams by mouth 1 pharmacy following. -Peripheral arterial disease -Diabetes mellitus type 2, chronically on insulin Levemir. Follow Accu-Cheks -Persistent atrial fibrillation, rate into 1 teens. Amiodarone Coumadin. Metoprolol. Patient does follow with Dr. Lanier. He is a very patient's heart rate is baseline runs a bit high. -Hyperlipidemia; Lipitor -Essential hypertension; Losartan hydrochlorothiazide. Toprol-XL. -Chronic congestive heart failure from systolic dysfunction EF 35-40%; Toprol- XL. Cozaar. Aldactone. -Mild to moderate MR - Mild CAD with 30-40% RCA, 40% mid circumflex, 80% diagonal 1 and 80% diagonal 2 stenosis. Aspirin, Lipitor. Lopressor
[2022-08-28 16:22] LABS: Glucose,Whole Blood 118 mg/dL (70-110)
[2022-08-28] MEDS: ONDANSETRON 4 MG/2 ML VIAL IVP PRN (17:53)
[2022-08-28] MEDS ORDERED: WARFARIN 2.5 MG TAB PO SCH (18:00)
[2022-08-28] MEDS ORDERED: WARFARIN 7.5 MG TAB PO ONE (18:00)
[2022-08-28 19:51] LABS: Glucose,Whole Blood 136 mg/dL (70-110)
[2022-08-28] MEDS: METOPROLOL SUCCINATE (ER) 50 MG TAB.ER.24H PO SCH (19:51)
[2022-08-29] MEDS: MAGNESIUM HYDROXIDE 2,400 MG/10 ML CUP PO PRN (03:28)
[2022-08-29] MEDS: HYDROmorphone 0.5 MG/0.5 ML SYRINGE IVP PRN (03:28)
[2022-08-29 06:03] LABS: Glucose,Whole Blood 178 mg/dL (70-110)
[2022-08-29] MEDS: LACTATED RINGERS 1,000 ML IV SCH ×2 (06:08→16:04)
[2022-08-29] MEDS: INSULIN ASPART (NovoLOG) 100 UNIT/ML VIAL SQ SCH ×3 (06:09→16:31)
[2022-08-29] MEDS: INSULIN DETEMIR (LEVEMIR) 100 UNIT/ML SYR SQ SCH ×2 (06:10→20:10)
[2022-08-29] MEDS: HYDROcodone/APAP 5-325MG 1 EACH TAB PO PRN ×4 (06:15→20:39)
[2022-08-29 09:00] LABS: INR 1.9 (<1.2); Prothrombin Time 18.7 sec (9.0-12.0)
[2022-08-29 09:10] LABS: African American GFR (CKD) >90 (>60 ml/min/1.73 sqM); Anion Gap 9 mmol/L; Blood Urea Nitrogen 13 mg/dL (7-17); Calcium 7.9 mg/dL (8.4-10.2); Carbon Dioxide 31 mmol/L (22-30); Chloride 94 mmol/L (98-107); Glucose 179 mg/dL (74-99); Non-African American GFR(CKD) 82 (>60 ml/min/1.73 sqM); Potassium 4.2 mmol/L (3.5-5.1); Sodium 134 mmol/L (137-145)
[2022-08-29] MEDS ORDERED: HYDROcodone/APAP 5-325MG 1 EACH TAB PO PRN (09:10)
[2022-08-29] MEDS: ATORVASTATIN 40 MG TAB PO SCH (09:22)
[2022-08-29] MEDS: polyethylene glycoL 3350 17 GM POWD.PACK PO SCH (09:22)
[2022-08-29] MEDS: AMIODARONE 200 MG TAB PO SCH (09:23)
[2022-08-29] MEDS: METOPROLOL SUCCINATE (ER) 100 MG TAB.ER.24H PO SCH (09:23)
[2022-08-29] MEDS: LOSARTAN 50 MG TAB PO SCH (09:28)
[2022-08-29] MEDS: GABAPENTIN 300 MG CAP PO SCH ×3 (09:28→20:39)
[2022-08-29] MEDS: traMADol 50 MG TAB PO PRN ×2 (09:29→19:58)
[2022-08-29] MEDS: metFORMIN 500 MG TAB PO SCH ×2 (09:29→20:40)
[2022-08-29] MEDS ORDERED: CLOPIDOGREL 75 MG TAB PO SCH (09:30)
[2022-08-29] MEDS: hydroCHLOROthiazide 12.5 MG CAP PO SCH (09:37)
--- NOTE | 2022-08-29 10:40 | P.DS ---
Providers Date of admission: 08/29/22 07:49 Attending physician: Cathleen Reina DO Consults: 08/24/22 13:08 Consult Physician Routine Consulting Provider: Roberto Franz Consult Reason/Comments: Inpatient rehab status post below the knee amputation Do you want consulting provider notified?: Yes 08/24/22 13:29 Consult Physician Routine Consulting Provider: Scotty William Consult Reason/Comments: Medical management, BKA Do you want consulting provider notified?: Yes 08/25/22 14:44 Consult Physician Routine Consulting Provider: Constantine Verma Consult Reason/Comments: eval for IPR Do you want consulting provider notified?: Already Contacted Primary care physician: Sumi Allen Holzer Hospital Course: 66-year-old female with gangrene of the right foot is scheduled for right gxlkd-[id number] amputation. Postop day #5. Patient pain has been well managed. Physical therapy has worked with patient and Her up into the Bedside Chair. States She Has To Have a Bowel Movement This Morning. She Has Been Afebrile. [facility] Has Been by to See Patient and Patient Has Stump Wool Sampler and Rigid Dressing in Place As Well As Knee Immobilizer. Awaiting PT/OT evaluation today. Also awaiting insurance authorization for inpatient rehab at [facility] Exam General appearance: The patient is alert, oriented, appears in no acute distress. HET: Head is normocephalic and atraumatic. Pupils are equal and reactive. Neck: Supple. Heart: Regular. Lungs: Equal expansion, normal respiratory effort. Abdomen: Soft, nontender, nondistended. Extremities: Right lower extremity warm to the touch, ifvui-iuh-tyes amputation stump with incision well approximated with josé, minimal to no drainage with pink surrounding tissue. Neurological: No focal deficits. Strength and sensation are grossly intact. Assessment Postop day #5 for right below the knee amputation 2. Chronic peripheral arterial disease with dry gangrene of right toes and foot 3. Diabetes mellitus type 2 4. Atrial fibrillation 5. Hyperlipidemia 6. Hypertension 7. Chronic congestive heart failure Plan Plan for discharge to inpatient rehab at [facility], medical management per primary medical team. Comfort prosthetics following patient for stump cheese wrapper and rigid dressing. Daily dressing changes as needed until no further drainage. Then may just apply stump cheese wrapper and rigid dressing. Keep knee immobilizer in place. Currently awaiting insurance authorization for discharge. The impression and plan of care has been dictated as directed. I performed a history and examination of this patient, discussed the same with the dictator. I agree with the dictator's note ,documented as a scribe. Any additional findings or plans will be noted. Procedures: Right gwlpk-rsn-kcfr amputation Plan - Discharge Summary Discharge Rx Participant: Yes New Discharge Prescriptions: Continue traMADol HCL 25 mg PO BID PRN 3 Days #6 tab PRN Reason: Pain HYDROcodone/APAP 5-325MG [Nathalie 5-325] 1 tab PO Q4-6H PRN 3 Days #18 tab PRN Reason: Pain Discontinued Clopidogrel [Plavix] 75 mg PO DAILY No Action Insulin Detemir [Levemir Flexpen] 15 unit SQ BID metFORMIN HCL [Glucophage] 1,000 mg PO BID Warfarin [Coumadin] 5 mg PO SUTUWETHFRSA Atorvastatin [Lipitor] 40 mg PO DAILY Warfarin [Coumadin] 2.5 mg PO MO Amiodarone [Cordarone] 200 mg PO DAILY Metoprolol Succinate (ER) [Toprol XL] 50 mg PO HS Losartan/Hydrochlorothiazide [Losartan-Hctz 100-12.5 mg Tab] 1 tab PO DAILY Gabapentin 300 mg PO DIRECTED Spironolactone [Aldactone] 25 mg PO DAILY #30 tab Metoprolol Succinate (ER) [Toprol XL] 100 mg PO DAILY #30 tab Discharge Medication List Insulin Detemir [Levemir Flexpen] 15 unit SQ BID 11/14/13 [History] metFORMIN HCL [Glucophage] 1,000 mg PO BID 11/14/13 [History] Atorvastatin [Lipitor] 40 mg PO DAILY 07/23/22 [History] Gabapentin 300 mg PO DIRECTED 07/23/22 [History] Losartan/Hydrochlorothiazide [Losartan-Hctz 100-12.5 mg Tab] 1 tab PO DAILY 07/23/22 [History] Warfarin [Coumadin] 2.5 mg PO MO 07/23/22 [History] Warfarin [Coumadin] 5 mg PO SUTUWETHFRSA 07/23/22 [History] Metoprolol Succinate (ER) [Toprol XL] 100 mg PO DAILY #30 tab 07/30/22 [Rx] Spironolactone [Aldactone] 25 mg PO DAILY #30 tab 07/30/22 [Rx] Amiodarone [Cordarone] 200 mg PO DAILY 08/10/22 [History] Metoprolol Succinate (ER) [Toprol XL] 50 mg PO HS 08/10/22 [History] HYDROcodone/APAP 5-325MG [Nathalie 5-325] 1 tab PO Q4-6H PRN 3 Days #18 tab 08/29/22 [Rx] traMADol HCL 25 mg PO BID PRN 3 Days #6 tab 08/29/22 [Rx] Follow up Appointment(s)/Referral(s): Cathleen Reina DO [STAFF PHYSICIAN] - 2 Weeks Activity/Diet/Wound Care/Special Instructions: Daily dressing change as needed to right BKA stump with Vaseline gauze and Kerlix until no further drainage. Apply stump cheese wrapper and rigid dressing daily with knee immobilizer. No tub bathing, may shower. Discharge Disposition: TRANSFER TO SNF/ECF
[2022-08-29] MEDS: ONDANSETRON 4 MG/2 ML VIAL IVP PRN (11:19)
[2022-08-29 11:34] LABS: Glucose,Whole Blood 175 mg/dL (70-110)
[2022-08-29 16:22] LABS: Glucose,Whole Blood 102 mg/dL (70-110)
--- NOTE | 2022-08-29 17:13 | P.PN ---
Subjective Progress Note Date: 08/29/22 This is a 66 year old female who is admitted for chronic right foot gangrene changes to the 4 and 5 toe adn is currently postoperative day #5 right BKA. Patient to be fitted for prosthetic leg today and possible DC to subacute rehab today if authorization is obtained. Patient reports pain is controlled with oral medications no numbness or tingling noted to the amputation site. Continues on warfarin with INR today of 1.9, sodium of 134. Blood glucose is fairly controlled. Patient received a dose of milk of mag today, last BM 3 days ago. Abdomen is soft and patient has bowel sounds normoactive. Patient is afebrile, heart rate 99, blood pressure 136/79, on room air 99%. Review of Systems Constitutional: Denied any fatigue denied any fever. Cardio vascular: denied any chest pain, palpitations Gastrointestinal: denied any nausea, vomiting, diarrhea Pulmonary: Denied any shortness of breath cough Neurologic denied any new focal deficits All inpatient medications were reviewed and appropriate changes in these medications as dictated in the interval history and assessment and plan. PHYSICAL EXAMINATION: GENERAL: The patient is alert and oriented x3, not in any acute distress. Well developed, well nourished. HEENT: Pupils are round and equally reacting to light. EOMI. No scleral icterus. No conjunctival pallor. Normocephalic, atraumatic. No pharyngeal erythema. No thyromegaly. CARDIOVASCULAR: S1 and S2 present. No murmurs, rubs, or gallops. PULMONARY: Chest is clear to auscultation, no wheezing or crackles. ABDOMEN: Soft, nontender, nondistended, normoactive bowel sounds. No palpable organomegaly. MUSCULOSKELETAL: No joint swelling or deformity. EXTREMITIES: No cyanosis, clubbing, or pedal edema. Right BKA. NEUROLOGICAL: Gross neurological examination did not reveal any focal deficits. SKIN: No rashes. Assessment -Right below-knee amputation, for Chronic Right foot 4-5 toe gangrene postoperative day #5 -Peripheral arterial disease -Diabetes mellitus type 2, chronically on insulin -Persistent atrial fibrillation currently controlled. -Hyperlipidemia -Essential hypertension -Chronic congestive heart failure from systolic dysfunction EF 35-40% -Mild to moderate MR -Mild CAD with 30-40% RCA, 40% mid circumflex, 80% diagonal 1 and 80% diagonal 2 stenosis -Leukocytosis improving GI prophylaxis DVT prophylaxis: Coumadin INR 1.9 today. Full Code Plan Pending insurance authorization for D/C to subacute rehab. Continue with current plan of care. Patient to receive prosthetic support today. Follow up labs in 2 to 3 days. Cleared medically for discharge. The impression and plan of care has been dictated by Lizette Casillas, Nurse Practitioner as directed. Dr. Daniel MD I have performed a history and physical examination and medical decision making of this patient, discussed the same with the dictator, and agree with the dictators assessment and plan as written, documented as a scribe. Based on total visit time, I have performed more than 50% of this visit. Objective - Vital Signs Vital signs: Vital Signs Temp 98.1 F 08/29/22 08:30 Pulse 99 08/29/22 08:30 Resp 18 08/29/22 08:30 BP 143/86 08/29/22 08:30 Pulse Ox 96 08/29/22 08:30 FiO2 Intake & Output 08/28/22 08/29/22 08/29/22 18:59 06:59 18:59 Intake Total 1008 Output Total 300 850 Balance 708 -850 Intake: Oral 1008 Output: Urine 300 850 Other: Voiding Method External Catheter External Catheter # Voids 1 - Labs CBC & Chem 7: 08/28/22 10:22 08/29/22 07:51 Labs: Abnormal Lab Results - Last 24 Hours (Table) 08/28/22 08/28/22 08/28/22 Range/Units 10:22 10:22 10:22 WBC 11.9 H (3.8-10.6) k/uL RBC 3.39 L (3.80-5.40) m/uL Hgb 9.8 L (11.4-16.0) gm/dL Hct 30.2 L (34.0-46.0) % Neutrophils # 9.4 H (1.3-7.7) k/uL PT 13.3 H (9.0-12.0) sec INR 1.3 H (<1.2) Sodium 134 L (137-145) mmol/L Chloride 95 L (98-107) mmol/L Glucose 132 H (74-99) mg/dL POC Glucose (mg/dL) (70-110) mg/dL Calcium 8.1 L (8.4-10.2) mg/dL 08/28/22 08/28/22 08/28/22 Range/Units 11:37 16:17 19:49 WBC (3.8-10.6) k/uL RBC (3.80-5.40) m/uL Hgb (11.4-16.0) gm/dL Hct (34.0-46.0) % Neutrophils # (1.3-7.7) k/uL PT (9.0-12.0) sec INR (<1.2) Sodium (137-145) mmol/L Chloride (98-107) mmol/L Glucose (74-99) mg/dL POC Glucose (mg/dL) 114 H 118 H 136 H (70-110) mg/dL Calcium (8.4-10.2) mg/dL 08/29/22 08/29/22 Range/Units 05:58 07:51 WBC (3.8-10.6) k/uL RBC (3.80-5.40) m/uL Hgb (11.4-16.0) gm/dL Hct (34.0-46.0) % Neutrophils # (1.3-7.7) k/uL PT 18.7 H (9.0-12.0) sec INR 1.9 H (<1.2) Sodium (137-145) mmol/L Chloride (98-107) mmol/L Glucose (74-99) mg/dL POC Glucose (mg/dL) 178 H (70-110) mg/dL Calcium (8.4-10.2) mg/dL Assessment and Plan Time with Patient: Less than 30
[2022-08-29] MEDS ORDERED: WARFARIN 2.5 MG TAB PO ONE (18:00)
[2022-08-29 20:10] LABS: Glucose,Whole Blood 116 mg/dL (70-110)
[2022-08-29] MEDS: METOPROLOL SUCCINATE (ER) 50 MG TAB.ER.24H PO SCH (20:40)
--- NOTE | 2022-08-30 00:24 | P.CONS ---
History of Present Illness - Reason for Consult Consult date: 08/29/22 - Chief Complaint rehab needs - History of Present Illness Mrs. Dobson is a 66 y/o female. She lives with her in a 1 with 2 MARC. 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 She has a good support system from her children. She presented to [facility] on 08/24/2022 for a right below the knee amputation due to gangrene of the right foot. PMH includes PAD, diabetes mellitus type 2, atrial fibrillation, hyperlipidemia, essential hypertension, chronic congestive heart failure from systolic dysfunction EF 35-40%, mitral regurgitation and mild CAD. 08/25/2022: She is doing pretty well today. She almost feel when working with therapy due to forgetting she had the right BKA. She has incisional pain and abnormal sensations in the absent part of the right leg. She denies having a BM since surgery. 08/30/22: She is doing well today. She has some tight pain at the incision site, no phantom pain. LBM was Wed. No abdominal pain. Got MOM and is passing gas now. Past Medical History Past Medical History: Atrial Fibrillation, Heart Failure, Diabetes Mellitus, Eye Disorder, Hyperlipidemia, Hypertension, Vascular Disorder Additional Past Medical History / Comment(s): chronic foot wound on the right, leg pain and cramping on the right, Newly diagnosed heart failure-EF 35% History of Any Multi-Drug Resistant Organisms: None Reported Past Surgical History: Back Surgery, Section, Heart Catheterization Additional Past Surgical History / Comment(s): angiogram. harrison. cataracts removed Past Anesthesia/Blood Transfusion Reactions: No Reported Reaction Past Psychological History: No Psychological Hx Reported Smoking Status: Never smoker Past Alcohol Use History: Occasional Past Drug Use History: None Reported - Past Family History Father Family Medical History: Cancer Medications and Allergies Home Medications Medication Instructions Recorded Confirmed Type Insulin Detemir [Levemir Flexpen] 15 unit SQ BID 11/14/13 08/22/22 History metFORMIN HCL [Glucophage] 1,000 mg PO BID 11/14/13 08/22/22 History Atorvastatin [Lipitor] 40 mg PO DAILY 07/23/22 08/22/22 History Warfarin [Coumadin] 2.5 mg PO MO 07/23/22 08/22/22 History Warfarin [Coumadin] 5 mg PO SUTUWETHFRSA 07/23/22 08/22/22 History Metoprolol Succinate (ER) [Toprol 100 mg PO DAILY #30 tab 07/30/22 08/22/22 Rx XL] Amiodarone [Cordarone] 200 mg PO DAILY 08/10/22 08/22/22 History Metoprolol Succinate (ER) [Toprol 50 mg PO HS 08/10/22 08/22/22 History XL] Famotidine [Pepcid] 20 mg PO DAILY #30 tablet 08/29/22 Rx Gabapentin [Neurontin] 300 mg PO TID #9 cap 08/29/22 Rx HYDROcodone/APAP 5-325MG [Sidney 1 tab PO Q4-6H PRN 3 Days #18 tab 08/29/22 Rx 5-325] INSULIN ASPART (NovoLOG) [NovoLOG 0 unit SQ AC-TID each 08/29/22 Rx (formulary)] Losartan [Cozaar] 100 mg PO DAILY tab 08/29/22 Rx polyethylene glycoL 3350 [Miralax] 17 gm PO DAILY packet 08/29/22 Rx traMADol HCL 25 mg PO BID PRN 3 Days #6 tab 08/29/22 Rx Allergies Allergy/AdvReac Type Severity Reaction Status Date / Time morphine AdvReac Nausea Verified 08/10/22 15:21 Physical Exam Vitals: Vital Signs Temp Pulse Pulse Resp BP Pulse Ox 08/29/22 23:58 95 18 139/66 94 L 08/29/22 20:00 98.4 F 100 18 148/60 95 08/29/22 15:48 98.0 F 98 18 144/76 96 08/29/22 14:30 108 H 16 08/29/22 11:25 98.2 F 108 H 18 136/79 96 08/29/22 08:30 98.1 F 99 16 143/86 96 08/29/22 04:00 98.2 F 99 18 144/80 95 08/29/22 02:00 90 94 16 Intake and Output 08/29/22 08/29/22 08/30/22 14:59 22:59 06:59 Intake Total 120 Output Total 550 250 200 Balance -550 -250 -80 Intake: Oral 120 Output: Urine 550 250 200 Other: Voiding Method External Catheter External Catheter General: Well-developed, well-nourished, female, in no acute distress, sitting up in bed HEENT: NC/AT, external ears intact, hearing intact to conversational speech, n zoya supple Cardiovascular: left calf is supple, nontender, no cords, without peripheral edema, no cardiac distress Respiratory: Even and unlabored breathing on RA Abdomen: Soft, nontender, nondistended Musculoskeletal: ROM WFL; right BKA MMT BL UEs: Sh Abd: 07/05 EE: 07/05 EF: 08/04 FABD: 08/04 WE: 08/04 H/5 MMT RLE:HF: 07/05KE: 07/05 MMT LLE:HF: 07/05 KE: 08/04 DF: 08/04 EHL: 08/04 Skin: Skin intact where visible to head, neck, and bilateral upper and lower extremities Neurological: Alert and oriented x 3. CN II-XII: Grossly intact. Speech is clear, fluent Psychiatric: Mood calm, affect appropriate, cooperative Results CBC & Chem 7: 08/28/22 10:22 08/29/22 07:51 Labs: Abnormal Lab Results - Last 24 Hours (Table) 08/29/22 08/29/22 08/29/22 Range/Units 05:58 07:51 07:51 PT 18.7 H (9.0-12.0) sec INR 1.9 H (<1.2) Sodium 134 L (137-145) mmol/L Chloride 94 L (98-107) mmol/L Carbon Dioxide 31 H (22-30) mmol/L Glucose 179 H (74-99) mg/dL POC Glucose (mg/dL) 178 H (70-110) mg/dL Calcium 7.9 L (8.4-10.2) mg/dL 08/29/22 08/29/22 Range/Units 11:32 20:08 PT (9.0-12.0) sec INR (<1.2) Sodium (137-145) mmol/L Chloride (98-107) mmol/L Carbon Dioxide (22-30) mmol/L Glucose (74-99) mg/dL POC Glucose (mg/dL) 175 H 116 H (70-110) mg/dL Calcium (8.4-10.2) mg/dL Assessment and Plan Assessment: Mrs. Kabacinski has a functional decline s/p right BKA on 08/24/2022. 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 # Bowel/ Bladder: Nursing to monitor and report concerns if any. No BM since surgery on 08/24/2022, received MOM # Skin/wound: Skin/Wound care to follow as needed # Pain Management -Per surgeon and IM-Monitor phantom pain complaints # DVT Prophylaxis: Defer to Ortho/IM management. # Comorbidities: PAD, diabetes mellitus type 2, atrial fibrillation, hyperlipidemia, essential hypertension, chronic congestive heart failure from systolic dysfunction EF 35-40%, mitral regurgitation and mild CAD # Your medical dx and mgt Goals: Modified Independent mobility and ADLS both basic and advanced; increased functional mobility/strength; increased balance, safety, endurance. Improvement in medical issues through your care. Barriers: right BKA Discharge recommendation: IPR. Auth sent today.
[2022-08-30] MEDS: HYDROcodone/APAP 5-325MG 1 EACH TAB PO PRN (01:12)
[2022-08-30 05:58] LABS: Glucose,Whole Blood 117 mg/dL (70-110)
[2022-08-30] MEDS: INSULIN ASPART (NovoLOG) 100 UNIT/ML VIAL SQ SCH ×2 (06:04→12:33)
[2022-08-30] MEDS: INSULIN DETEMIR (LEVEMIR) 100 UNIT/ML SYR SQ SCH (08:48)
[2022-08-30 09:06] LABS: INR 3.3 (<1.2); Prothrombin Time 32.5 sec (9.0-12.0)
[2022-08-30] MEDS: polyethylene glycoL 3350 17 GM POWD.PACK PO SCH (09:10)
[2022-08-30] MEDS: AMIODARONE 200 MG TAB PO SCH (09:10)
[2022-08-30] MEDS: METOPROLOL SUCCINATE (ER) 100 MG TAB.ER.24H PO SCH (09:10)
[2022-08-30] MEDS: GABAPENTIN 300 MG CAP PO SCH (09:10)
[2022-08-30 11:37] LABS: Glucose,Whole Blood 153 mg/dL (70-110)
[2022-08-30] MEDS: MAGNESIUM HYDROXIDE 2,400 MG/10 ML CUP PO PRN (11:40)
[2022-08-30] MEDS: LOSARTAN 50 MG TAB PO SCH (11:41)
[2022-08-30 11:55] VITALS: BP 146/82; PULSE 104; RESP 17; TEMP 98.4
[2022-08-30] MEDS: HYDROmorphone 0.5 MG/0.5 ML SYRINGE IVP PRN (12:25)
[2022-08-30] MEDS: ONDANSETRON 4 MG/2 ML VIAL IVP PRN (12:25)
[2022-08-30] MEDS: metFORMIN 500 MG TAB PO SCH (12:34)
[2022-08-30] MEDS: ATORVASTATIN 40 MG TAB PO SCH (12:34)
--- NOTE | 2022-08-30 13:15 | P.PN ---
Subjective Progress Note Date: 08/30/22 This is a 66 year old female who is admitted for chronic right foot gangrene changes to the 4 and 5 toe adn is currently postoperative day #5 right BKA. Patient to be fitted for prosthetic leg today and possible DC to subacute rehab today if authorization is obtained. Patient reports pain is controlled with oral medications no numbness or tingling noted to the amputation site. Continues on warfarin with INR today of 1.9, sodium of 134. Blood glucose is fairly controlled. Patient received a dose of milk of mag today, last BM 3 days ago. Abdomen is soft and patient has bowel sounds normoactive. Patient is afebrile, heart rate 99, blood pressure 136/79, on room air 99%. 08/30/2022 Patient remains on the medical floor. She is pending discharge to subacute rehab and additionally is pending evaluation/fitting for orthotics. Patient has been cleared by vascular surgery for discharge. INR is 3.3 today. Remains afebrile and on room air. Passing gas. Abdomen is soft and non tender. No chest pain, no shortness of breath. Pain is well controlled. Review of Systems Constitutional: Denied any fatigue denied any fever. Cardio vascular: denied any chest pain, palpitations Gastrointestinal: denied any nausea, vomiting, diarrhea Pulmonary: Denied any shortness of breath cough Neurologic denied any new focal deficits All inpatient medications were reviewed and appropriate changes in these medications as dictated in the interval history and assessment and plan. PHYSICAL EXAMINATION: GENERAL: The patient is alert and oriented x3, not in any acute distress. Well developed, well nourished. HEENT: Pupils are round and equally reacting to light. EOMI. No scleral icterus. No conjunctival pallor. Normocephalic, atraumatic. No pharyngeal erythema. No thyromegaly. CARDIOVASCULAR: S1 and S2 present. No murmurs, rubs, or gallops. PULMONARY: Chest is clear to auscultation, no wheezing or crackles. ABDOMEN: Soft, nontender, nondistended, normoactive bowel sounds. No palpable organomegaly. MUSCULOSKELETAL: No joint swelling or deformity. EXTREMITIES: No cyanosis, clubbing, or pedal edema. Right BKA. NEUROLOGICAL: Gross neurological examination did not reveal any focal deficits. SKIN: No rashes. 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 Follow up labs in 2 to 3 days. Cleared medically for discharge. The impression and plan of care has been dictated by Lizette Casillas, Nurse Practitioner as directed. Dr. Daniel MD I have performed a history and physical examination and medical decision making of this patient, discussed the same with the dictator, and agree with the dictators assessment and plan as written, documented as a scribe. Based on total visit time, I have performed more than 50% of this visit. Objective - Vital Signs Vital signs: Vital Signs Temp 98.2 F 08/30/22 04:00 Pulse 90 08/30/22 04:00 Resp 16 08/30/22 04:00 BP 133/70 08/30/22 04:00 Pulse Ox 94 L 08/30/22 04:00 FiO2 Intake & Output 08/29/22 08/30/22 08/30/22 18:59 06:59 18:59 Intake Total 120 Output Total 800 1350 Balance -800 -1230 Intake: Oral 120 Output: Urine 800 1350 Other: Voiding Method External Catheter External Catheter - Labs CBC & Chem 7: 08/28/22 10:22 08/29/22 07:51 Labs: Abnormal Lab Results - Last 24 Hours (Table) 08/29/22 08/29/22 08/29/22 Range/Units 07:51 07:51 11:32 PT 18.7 H (9.0-12.0) sec INR 1.9 H (<1.2) Sodium 134 L (137-145) mmol/L Chloride 94 L (98-107) mmol/L Carbon Dioxide 31 H (22-30) mmol/L Glucose 179 H (74-99) mg/dL POC Glucose (mg/dL) 175 H (70-110) mg/dL Calcium 7.9 L (8.4-10.2) mg/dL 08/29/22 08/30/22 Range/Units 20:08 05:56 PT (9.0-12.0) sec INR (<1.2) Sodium (137-145) mmol/L Chloride (98-107) mmol/L Carbon Dioxide (22-30) mmol/L Glucose (74-99) mg/dL POC Glucose (mg/dL) 116 H 117 H (70-110) mg/dL Calcium (8.4-10.2) mg/dL Assessment and Plan Time with Patient: Less than 30
[2022-08-30] MEDS ORDERED: WARFARIN 0.5 MG TAB PO ONE (18:00)
== END 2022-08-30 13:02 | DRG 240 ==
LOC: OR 10:21 → 3SCARD 14:06 → OR 08-25 08:18 → 3SCARD 08-27 01:36 → OBSVTOIN 08-29 07:49
PROVIDERS: ADMIT Surgery; ATTEND Surgery
PROC: 0Y6H0Z1 Detachment at Right Lower Leg, High, Open Approach (ICD-10-PCS; principal; 2022-08-29)
DX: E11.52 Type 2 diabetes mellitus with diabetic peripheral angiopathy with gangrene (principal); I48.19 Other persistent atrial fibrillation; I70.261 Atherosclerosis of native arteries of extremities with gangrene, right leg; I50.22 Chronic systolic (congestive) heart failure; D72.829 Elevated white blood cell count, unspecified; T45.515A Adverse effect of anticoagulants, initial encounter; I11.0 Hypertensive heart disease with heart failure; I25.10 Atherosclerotic heart disease of native coronary artery without angina pectoris; K59.00 Constipation, unspecified; I34.0 Nonrheumatic mitral (valve) insufficiency; E78.5 Hyperlipidemia, unspecified; Z79.01 Long term (current) use of anticoagulants; Z79.4 Long term (current) use of insulin; Z79.84 Long term (current) use of oral hypoglycemic drugs; Z79.899 Other long term (current) drug therapy; Z89.511 Acquired absence of right leg below knee; X58.XXXA Exposure to other specified factors, initial encounter; Z88.5 Allergy status to narcotic agent; Z98.42 Cataract extraction status, left eye; Z98.41 Cataract extraction status, right eye
CPT/HCPCS: 80048; 85025; 85027; 85610; 85730

== ENCOUNTER → 2023-03-05 | Outpatient (CLI) | payer OTHER ==
[2023-03-05 19:02] LABS: INR 2.28 sec (0.93-1.11); Prothrombin Time 23.3 sec (9.9-11.9)
== END | disposition home or self-care (01) ==
LOC: LABWHC1 11:35
PROVIDERS: ATTEND Internal Medicine
DX: Z79.01 Long term (current) use of anticoagulants (principal)
CPT/HCPCS: 36415; 85610